=== PATIENT | female | born 1970 | race Hispanic/Latino ===

== ENCOUNTER 2019-05-09 16:28 | Emergency (ER) | payer SELFPAY ==
[2019-05-09] MEDS ORDERED: INSULIN -REGULAR HUMAN 50 UNIT/0.5 ML ML ONE (17:28)
[2019-05-09 17:29] LABS: Absolute Lymphocytes (CBC) 1.9 K/uL (0.7-4.9); Basophils % 0.8 % (0-1.3); Hematocrit 38.8 % (36.0-45.0); MPV 8.7 fL (7.6-11.3); RBC Red Blood Cell Count 4.34 M/uL (3.86-4.86)
[2019-05-09 17:55] LABS: Potassium 3.9 mmol/L (3.5-5.1)
[2019-05-09 17:56] LABS: Albumin 3.2 g/dL (3.4-5.0); Bilirubin Total 0.2 mg/dL (0.2-1.0); Protein, Total 6.6 g/dL (6.4-8.2)
--- NOTE | 2019-05-09 20:29 | EDPHYS ---
Physician Documentation [facility] Name: Ángela Mehta Age: 48 yrs Sex: Female : 1970 Arrival Date: 05/09/2019 Time: 16:30 Bed 24 Private MD: ED Physician Steve Cheek HPI: 05/09 17:55 This 48 yrs old Female presents to ER via Ambulatory with complaints of High ma2 Blood Sugar. 17:55 Onset: The symptoms/episode began/occurred gradually, 3 week(s) ago. Associated signs ma2 and symptoms: Pertinent negatives: constipation, diarrhea, nausea, polyphagia. The patient has experienced similar episodes in the past. not taking her metfromin . 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 - Coronavirus screen:: The patient has NOT traveled to [place], [place], or [place] in the past 14 days. The patient has NOT had contact with known/suspected case of Coronavirus?. - Social history:: Patient/guardian denies using alcohol, street drugs, The patient lives with spouse, Smoking status: Patient reports the use of cigarette tobacco products, 3 cigs a day, Patient uses street drugs, cocaine, marijuana. - Family history:: not pertinent. - Ebola Screening: : Patient negative for fever greater than or equal to 101.5 degrees Fahrenheit, and additional compatible Ebola Virus Disease symptoms Patient denies exposure to infectious person Patient denies travel to an Ebola-affected area in the 21 days before illness onset No symptoms or risks identified at this time. ROS: 17:55 Constitutional: Negative for fever, chills, and weight loss. ma2 17:55 All other systems are negative. Exam: 17:55 Constitutional: This is a well developed, well nourished patient who is awake, alert, ma2 and in no acute distress. Head/Face: Normocephalic, atraumatic. ENT: Nares patent. No nasal discharge, no septal abnormalities noted. Tympanic membranes are normal and external auditory canals are clear. Oropharynx with no redness, swelling, or masses, exudates, or evidence of obstruction, uvula midline. Mucous membranes moist. Neck: Trachea midline, no thyromegaly or masses palpated, and no cervical lymphadenopathy. Supple, full range of motion without nuchal rigidity, or vertebral point tenderness. No Meningismus. Chest/axilla: Normal chest wall appearance and motion. Nontender with no deformity. No lesions are appreciated. Cardiovascular: Regular rate and rhythm with a normal S1 and S2. No gallops, murmurs, or rubs. Normal PMI, no JVD. No pulse deficits. Respiratory: Lungs have equal breath sounds bilaterally, clear to auscultation and percussion. No rales, rhonchi or wheezes noted. No increased work of breathing, no retractions or nasal flaring. Abdomen/GI: Soft, non-tender, with normal bowel sounds. No distension or tympany. No guarding or rebound. No evidence of tenderness throughout. Neuro: Awake and alert, GCS 15, oriented to person, place, time, and situation. Cranial nerves II-XII grossly intact. Motor strength 5/5 in all extremities. Sensory grossly intact. Cerebellar exam normal. Normal gait. Vital Signs: 16:57 BP 111 / 72; Pulse 67; Resp 17 S; Temp 97.5(O); Pulse Ox 98% on R/A; Weight 69.85 kg ca1 (R); Height 5 ft. 4 in. (162.56 cm) (R); 18:26 BP 118 / 78; Pulse 64; Resp 18; Pulse Ox 98% on R/A; ph 19:28 BP 115 / 76; Pulse 62; Resp 18; Temp 98.0; Pulse Ox 99% on R/A; ph 16:57 Body Mass Index 26.43 (69.85 kg, 162.56 cm) ca1 MDM: 17:02 Patient medically screened. ma2 17:55 Differential diagnosis: diabetes insipidus, DKA, gestational diabetes, new onset ma2 diabetes. Data reviewed: vital signs, nurses notes. Counseling: I had a detailed discussion with the patient and/or guardian regarding: the historical points, exam findings, and any diagnostic results supporting the discharge/admit diagnosis, the presence of at least one elevated blood pressure reading (>120/80) during this emergency department visit, the need for outpatient follow up. Response to treatment: the patient's symptoms have markedly improved after treatment. 05/09 17:03 Order name: CBC with Diff ma2 05/09 17:03 Order name: HOMA altman Administered Medications: 17:30 Drug: Insulin Regular Human 8 units {Co-Signature: (Kayla Farfan).} Route: IVP; ph Site: right forearm; 19:27 Follow up: Response: No adverse reaction; Blood sugar is lowered ph Point of Care Testing: Blood Glucose: 16:57 Blood Glucose: High (>450 mg/dL); ca1 Ranges: Critical Glucose Levels:Adult <50 mg/dl or >400 mg/dl <40 mg/dl or >180 mg/dl Disposition: 05/09/19 18:44 Discharged to Home. Impression: Elevated blood glucose level. - Condition is Stable. - Discharge Instructions: Type 2 Diabetes Mellitus, Diagnosis, Adult, [id number], How to Avoid Diabetes Problems, Complementary and Alternative Medical Therapies for Diabetes, Diabetes Mellitus and Food. - Prescriptions for Tylenol- Codeine #3 300-30 mg Oral Tablet - take 2 tablet by ORAL route every 6 hours As needed; 30 tablet. Metformin 500 mg Oral Tablet - take 1 tablet by ORAL route once daily for 7 days Then take 1 tablet with morning meals AND evening meals; 21 tablet. - Work release form, Medication Reconciliation Form, Thank You Letter, Antibiotic Education, Prescription Opioid Use form. - Follow up: Private Physician; When: Tomorrow; Reason: Continuance of care. - Notes: drink alot of water Signatures: Dispatcher [employer] Harika Headley RN RN Steve Cheek MD MD ma2 Josselyn Tao RN RN [facility] Kayla Farfan Corrections: (The following items were deleted from the chart) 19:28 18:44 05/09/2019 18:44 Discharged to Home. Impression: Elevated blood glucose level. ph Condition is Stable. Discharge Instructions: Complementary and Alternative Medical Therapies for Diabetes, Diabetes Mellitus and Food. Prescriptions for Tylenol-Codeine #3 300-30 mg Oral Tablet - take 2 tablet by ORAL route every 6 hours As needed; 30 tablet, Metformin 500 mg Oral Tablet - take 1 tablet by ORAL route once daily for 7 days Then take 1 tablet with morning meals AND evening meals; 21 tablet. and Forms are Medication Reconciliation Form, Thank You Letter, Antibiotic Education, Prescription Opioid Use. Follow up: Private Physician; When: Tomorrow; Reason: Continuance of care. ma2
--- NOTE | 2019-05-09 20:29 | ER ---
Nurse's Notes [facility] Name: Ángela Mehta Age: 48 yrs Sex: Female : 1970 Arrival Date: 05/09/2019 Time: 16:30 Bed 24 Private MD: Diagnosis: Elevated blood glucose level Presentation: 05/09 16:54 Presenting complaint: Patient states: I am diabetic, I have been dizzy. I went to the [address] and they took my sugar, and it was at 585. They were to send me here via ambulance but I had my sis-in-law drive me here. I am not dizzy right now but I have been feeling sick for the past few days. Transition of care: patient was not received from another setting of care. Onset of symptoms was May 09, 2019. Risk Assessment: Do you want to hurt yourself or someone else? Patient reports no desire to harm self or others. Initial Sepsis Screen: Does the patient meet any 2 criteria? No. Patient's initial sepsis screen is negative. Does the patient have a suspected source of infection? No. Patient's initial sepsis screen is negative. Care prior to arrival: None. 16:54 Method Of Arrival: Ambulatory ca1 16:54 Acuity: NIMA 3 ca1 17:01 Note BGL: HI. 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 - Coronavirus screen:: The patient has NOT traveled to [place], [place], or [place] in the past 14 days. The patient has NOT had contact with known/suspected case of Coronavirus?. - Social history:: Patient/guardian denies using alcohol, street drugs, The patient lives with spouse, Smoking status: Patient reports the use of cigarette tobacco products, 3 cigs a day, Patient uses street drugs, cocaine, marijuana. - Family history:: not pertinent. - Ebola Screening: : Patient negative for fever greater than or equal to 101.5 degrees Fahrenheit, and additional compatible Ebola Virus Disease symptoms Patient denies exposure to infectious person Patient denies travel to an Ebola-affected area in the 21 days before illness onset No symptoms or risks identified at this time. Screenin:21 Abuse screen: Denies threats or abuse. Denies injuries from another. Nutritional ph screening: No deficits noted. Tuberculosis screening: No symptoms or risk factors identified. Fall Risk None identified. Assessment: 17:45 General: Appears in no apparent distress. comfortable, slender, well groomed, Behavior ph is calm, cooperative, appropriate for age, Denies fever, feeling ill. Pain: Denies pain. Neuro: Level of Consciousness is awake, alert, obeys commands, Oriented to person, place, time, situation, Reports dizziness. Cardiovascular: Capillary refill < 3 seconds in bilateral fingers Patient's skin is warm and dry. Respiratory: Airway is patent Respiratory effort is even, unlabored, Respiratory pattern is regular, symmetrical, Denies shortness of breath. GI: Abdomen is round non-distended, Patient currently denies abdominal pain, diarrhea, nausea, vomiting. : Reports urinary frequency. Derm: Skin is intact, Skin is pink, warm \T\ dry. Musculoskeletal: Circulation, motion, and sensation intact. Range of motion: intact in all extremities. 18:30 Reassessment: Patient appears in no apparent distress at this time. Patient and/or ph family updated on plan of care and expected duration. Pain level reassessed. Patient is alert, oriented x 3, equal unlabored respirations, skin warm/dry/pink. 19:27 Reassessment: Patient appears in no apparent distress at this time. Patient and/or ph family updated on plan of care and expected duration. Pain level reassessed. Patient is alert, oriented x 3, equal unlabored respirations, skin warm/dry/pink. Vital Signs: 16:57 BP 111 / 72; Pulse 67; Resp 17 S; Temp 97.5(O); Pulse Ox 98% on R/A; Weight 69.85 kg ca1 (R); Height 5 ft. 4 in. (162.56 cm) (R); 18:26 BP 118 / 78; Pulse 64; Resp 18; Pulse Ox 98% on R/A; ph 19:28 BP 115 / 76; Pulse 62; Resp 18; Temp 98.0; Pulse Ox 99% on R/A; ph 16:57 Body Mass Index 26.43 (69.85 kg, 162.56 cm) ca1 ED Course: 16:30 Patient arrived in ED. rg4 16:56 Triage completed. ca1 16:57 Arm band placed on right wrist. ca1 17:02 Steve Cheek MD is Attending Physician. ma2 17:03 Harika Hooper, RN is Primary Nurse. ph 17:30 Inserted saline lock: 22 gauge in right forearm, using aseptic technique. ph 18:21 Patient has correct armband on for positive identification. Pulse ox on. NIBP on. Door ph closed. Noise minimized. Warm blanket given. Pillow given. 18:33 No provider procedures requiring assistance completed. ph 19:27 IV discontinued, intact, bleeding controlled, No redness/swelling at site. Pressure ph dressing applied. Administered Medications: 17:30 Drug: Insulin Regular Human 8 units {Co-Signature: rafael (Kayla Farfan).} Route: IVP; ph Site: right forearm; 19:27 Follow up: Response: No adverse reaction; Blood sugar is lowered ph Point of Care Testing: Blood Glucose: 16:57 Blood Glucose: High (>450 mg/dL); ca1 Ranges: Outcome: 18:44 Discharge ordered by . ma2 19:27 Discharged to home ambulatory, with family. ph 19:27 Condition: improved 19:27 Discharge instructions given to patient, Instructed on discharge instructions, follow up and referral plans. medication usage, Demonstrated understanding of instructions, follow-up care, medications, Prescriptions given X 1. 19:28 Patient left the ED. ph Signatures: Harika Hooper RN RN ph Eli Jones rg4 Steve Cheek MD MD wa2 Josselyn Tao RN RN [facility] Kayla Farfan Corrections: (The following items were deleted from the chart) 18:26 17:30 General: Appears in no apparent distress. uncomfortable, Behavior is calm, ph cooperative, appropriate for age, ph 18:26 17:30 Pain: Denies pain. ph ph 18:26 17:30 Neuro: Level of Consciousness is awake, alert, obeys commands, Oriented to ph person, place, ph 18:26 17:30 Cardiovascular: Capillary refill < 3 seconds in bilateral fingers Patient's skin ph is warm and dry. ph 18:26 17:30 Respiratory: Airway is patent Respiratory effort is even, unlabored, Respiratory ph pattern is regular, symmetrical, ph 18:26 17:30 GI: PEG tube in place, clamped. Site clean. Reports nausea, vomiting, Patient ph currently denies abdominal pain, diarrhea, ph 18:26 17:30 Derm: Skin is intact, Skin is pink, warm \T\ dry. ph ph 18:26 17:30 Musculoskeletal: Circulation, motion, and sensation intact. Range of motion: ph limited in R side of body r/t previous CVA ph 18:26 18:20 Reassessment: Patient appears in no apparent distress at this time. Patient ph and/or family updated on plan of care and expected duration. Pain level reassessed. Patient is alert, oriented x 3, equal unlabored respirations, skin warm/dry/pink. Pt reports that nausea has improved after IV medications, awaiting lab and radiology results ph 18:33 17:50 Missed attempt(s): 22 gauge in left forearm. Bleeding controlled, band aid ph applied, catheter tip intact. ph 18:33 17:50 Missed attempt(s): 24 gauge in left hand. ph ph 18:33 18:05 Inserted saline lock: 18 gauge in left EJ, using aseptic technique. ,using ph aseptic technique. Per Dr De La Fuente Blood collected. ph 18:33 18:05 No provider procedures requiring assistance completed. ph ph 18:33 18:05 Patient admitted, IV remains in place. ph ph
[2019-05-11 19:25] VITALS: BP 115/76; TEMP 98; O2SAT 99
== END 2019-05-09 19:28 | disposition home or self-care (01) ==
LOC: ER 16:28
DX: E11.65 Type 2 diabetes mellitus with hyperglycemia (principal); Z72.0 Tobacco use
CPT/HCPCS: 36415; 80053; 82947; 85025; 96374; 99284

== ENCOUNTER 2020-06-08 14:25 | Emergency (ER) | payer SELFPAY ==
--- NOTE | 2020-06-08 18:25 | EDPHYS ---
Physician Documentation [facility] Name: Ángela Mehta Age: 49 yrs Sex: Female : 1970 Arrival Date: 06/08/2020 Time: 14:30 Bed 7 Private MD: ED Physician Dimas Diaz HPI: 06/08 18:15 This 49 yrs old Female presents to ER via Ambulatory with complaints of jmm Toothache, Mouth Swelling. 18:15 The patient presents with pain, swelling. Onset: The symptoms/episode began/occurred jmm gradually, 1 day(s) ago. Modifying factors: The symptoms are alleviated by nothing, the symptoms are aggravated by nothing. Associated signs and symptoms: Pertinent positives: pain, swelling, Pertinent negatives: fever. Historical: - Allergies: 15:08 No Known Allergies; aa5 - PMHx: 15:08 Diabetes - NIDDM; aa5 - PSHx: 15:08 ; aa5 - Immunization history:: Adult Immunizations unknown. - Social history:: Smoking status: Patient denies any tobacco usage or history of. ROS: 18:15 Constitutional: Negative for fever, chills, and weight loss. jmm 18:15 Neck: Negative for injury, pain, and swelling, Cardiovascular: Negative for chest pain, palpitations, and edema, Respiratory: Negative for shortness of breath, cough, wheezing, and pleuritic chest pain, Abdomen/GI: Negative for abdominal pain, nausea, vomiting, diarrhea, and constipation. 18:15 ENT: Positive for dental pain. 18:15 All other systems are negative. Exam: 18:15 Constitutional: This is a well developed, well nourished patient who is awake, alert, jmm and in no acute distress. Head/Face: atraumatic. Eyes: EOMI, no conjunctival erythema appreciated 18:15 Neck: Trachea midline, Supple Chest/axilla: Normal chest wall appearance and motion. Cardiovascular: Regular rate and rhythm. No edema appreciated Respiratory: Normal respirations, no respiratory distress appreciated Abdomen/GI: Non distended, soft Back: Normal ROM Skin: General appearance color normal MS/ Extremity: Moves all extremities, no obvious deformities appreciated, no edema noted to the lower extremities Neuro: Awake and alert, normal gait Psych: Behavior is normal, Mood is normal, Patient is cooperative and pleasant 18:15 ENT: Dental exam: pain, that is moderate, specifically in the lower left second molar (#18). 18:15 ENT: left sided jaw swelling appreciated, no submandibular pain. Vital Signs: 15:09 BP 119 / 80; Pulse 85; Resp 18 S; Temp 97.4(TE); Pulse Ox 98% on R/A; Weight 77.11 kg aa5 (R); Height 5 ft. 4 in. (162.56 cm) (R); Pain 10/10; 18:47 BP 127 / 89; Pulse 86; Resp 18; Temp 97.8; Pulse Ox 99% on R/A; ph 19:06 BP 121 / 80; Pulse 80; Resp 17; Pulse Ox 98% ; rr5 15:09 Body Mass Index 29.18 (77.11 kg, 162.56 cm) aa5 MDM: 18:04 Patient medically screened. [facility] 18:20 Data reviewed: vital signs, nurses notes. Counseling: I had a detailed discussion with antelmo the patient and/or guardian regarding: the historical points, exam findings, and any diagnostic results supporting the discharge/admit diagnosis, the need for outpatient follow up, to return to the emergency department if symptoms worsen or persist or if there are any questions or concerns that arise at home. ED course: Patient is alert and non toxic in appearance. I do not suspect ludwigs. Patient advised to follow up with oral surgery or dentist for reevaluation. Patient is otherwise given strict return precautions. Patient understood and agrees with the plan of care. . Administered Medications: 18:44 Drug: Ketorolac 30 mg Route: IM; Site: left deltoid; ph 19:05 Follow up: Response: No adverse reaction rr5 18:44 Drug: Clindamycin 900 mg Route: IM; Site: left vastus lateralis; ph 19:05 Follow up: Response: No adverse reaction rr5 Disposition: 06/09 18:25 Co-signature as Attending Physician, Dimas Diaz MD I agree with the assessment and tw4 plan of care. Disposition: 06/08/20 18:24 Discharged to Home. Impression: Dental Abscess. - Condition is Stable. - Discharge Instructions: Dental Abscess. - Prescriptions for Clindamycin HCl 300 mg Oral Capsule - take 1 capsule by ORAL route every 6 hours for 10 days; 40 capsule. Ibuprofen 800 mg Oral Tablet - take 1 tablet by ORAL route every 8 hours As needed take with food; 30 tablet. - Medication Reconciliation Form, Thank You Letter, Antibiotic Education, Prescription Opioid Use form. - Follow up: Andrew Cantor DDS; When: 2 - 3 days; Reason: Recheck today's complaints, Continuance of care, Re-evaluation by your physician. Signatures: Ed Arzola PA PA jmm Calderon, Audri RN RN aa5 Harika Hooper RN RN Dimas Diaz MD MD tw4 Sánchez Zuluaga RN RN rr5 Corrections: (The following items were deleted from the chart) 06/08 19:07 18:24 06/08/2020 18:24 Discharged to Home. Impression: Dental Abscess. Condition is rr5 Stable. Forms are Medication Reconciliation Form, Thank You Letter, Antibiotic Education, Prescription Opioid Use. Follow up: Andrew Cantor; When: 2 - 3 days; Reason: Recheck today's complaints, Continuance of care, Re-evaluation by your physician. antelmo
--- NOTE | 2020-06-08 18:25 | ER ---
Nurse's Notes [facility] Name: Ángela Mehta Age: 49 yrs Sex: Female : 1970 Arrival Date: 06/08/2020 Time: 14:30 Bed 7 Private MD: Diagnosis: Dental Abscess Presentation: 06/08 15:09 Chief complaint: Patient states: toothache and left jaw swelling that began yesterday. aa5 Coronavirus screen: At this time, the client does not indicate any symptoms associated with coronavirus-19. Ebola Screen: Patient negative for fever greater than or equal to 101.5 degrees Fahrenheit, and additional compatible Ebola Virus Disease symptoms. Initial Sepsis Screen: Does the patient meet any 2 criteria? No. Patient's initial sepsis screen is negative. Does the patient have a suspected source of infection? No. Patient's initial sepsis screen is negative. Risk Assessment: Do you want to hurt yourself or someone else? Patient reports no desire to harm self or others. Onset of symptoms was May 2020. 15:09 Method Of Arrival: Ambulatory aa5 15:09 Acuity: NIMA 4 aa5 Historical: - Allergies: 15:08 No Known Allergies; aa5 - PMHx: 15:08 Diabetes - NIDDM; aa5 - PSHx: 15:08 ; aa5 - Immunization history:: Adult Immunizations unknown. - Social history:: Smoking status: Patient denies any tobacco usage or history of. Screenin:46 Abuse screen: Denies threats or abuse. Denies injuries from another. Nutritional ph screening: No deficits noted. Tuberculosis screening: No symptoms or risk factors identified. Fall Risk None identified. Assessment: 18:44 Reassessment: D/C pending 15 min shot time. General: Appears in no apparent distress. ph uncomfortable, well groomed, Behavior is calm, cooperative, appropriate for age. Pain: Complains of pain in left jaw. Neuro: Level of Consciousness is awake, alert, obeys commands, Oriented to person, place, time, situation. Cardiovascular: Capillary refill < 3 seconds in bilateral fingers Patient's skin is warm and dry. Respiratory: Airway is patent Respiratory effort is even, unlabored. EENT: Poor dentition noted. swelling noted to L jaw. Reports pain in lower left second molar (#18). Derm: Skin is intact, Skin is pink, warm \T\ dry. Musculoskeletal: Circulation, motion, and sensation intact. Range of motion: intact in all extremities. 19:06 Reassessment: Patient appears in no apparent distress at this time. Patient is alert, rr5 oriented x 3, equal unlabored respirations, skin warm/dry/pink. discharge instruction given and explained without complaints made. Vital Signs: 15:09 BP 119 / 80; Pulse 85; Resp 18 S; Temp 97.4(TE); Pulse Ox 98% on R/A; Weight 77.11 kg aa5 (R); Height 5 ft. 4 in. (162.56 cm) (R); Pain 10/10; 18:47 BP 127 / 89; Pulse 86; Resp 18; Temp 97.8; Pulse Ox 99% on R/A; ph 19:06 BP 121 / 80; Pulse 80; Resp 17; Pulse Ox 98% ; rr5 15:09 Body Mass Index 29.18 (77.11 kg, 162.56 cm) aa5 ED Course: 14:30 Patient arrived in ED. mr 15:08 Arm band placed on. aa5 15:10 Triage completed. aa5 17:55 Ed Arzola PA is PHCP. jmm 17:55 Dimas Diaz MD is Attending Physician. jmm 18:14 Harika Hooper, RN is Primary Nurse. ph 18:23 Andrew Cantor DDS is Referral Physician. jmm 18:46 Patient has correct armband on for positive identification. Bed in low position. Call ph light in reach. Door closed. Noise minimized. 18:46 No provider procedures requiring assistance completed. Patient did not have IV access ph during this emergency room visit. Administered Medications: 18:44 Drug: Ketorolac 30 mg Route: IM; Site: left deltoid; ph 19:05 Follow up: Response: No adverse reaction rr5 18:44 Drug: Clindamycin 900 mg Route: IM; Site: left vastus lateralis; ph 19:05 Follow up: Response: No adverse reaction rr5 Outcome: 18:24 Discharge ordered by . jmm 19:06 Discharged to home ambulatory. rr5 19:06 Condition: stable 19:06 Discharge instructions given to patient, Instructed on discharge instructions, follow up and referral plans. medication usage, Demonstrated understanding of instructions, follow-up care, medications, Prescriptions given X 2. 19:07 Patient left the ED. rr5 Signatures: Ed Arzola PA PA jmm Rivera, Mary mr AnicetoMelyssa, RN RN aa5 Harika Hooper RN RN Sánchez Zuluaga RN RN rr5 Corrections: (The following items were deleted from the chart) 18:46 18:44 EENT: Poor dentition noted. Reports pain in lower left second molar (#18) [facility]
[2020-06-08] MEDS ORDERED: KETOROLAC 30 MG/ML INJ ONE (18:43)
[2020-06-08] MEDS ORDERED: CLINDAMYCIN IV 150 MG/ML (4 mL) VIAL ONE (18:43)
[2020-06-08 19:13] VITALS: TEMP 97.8
[2020-06-08 19:14] VITALS: BP 121/80; O2SAT 98
== END 2020-06-08 19:07 | disposition home or self-care (01) ==
LOC: ER 14:25
DX: K04.7 Periapical abscess without sinus (principal); E11.9 Type 2 diabetes mellitus without complications
CPT/HCPCS: 96372; 99283; S0077

== ENCOUNTER 2022-10-04 14:26 | Emergency (ER) | payer OTHER, SELFPAY ==
--- OUTSIDE RECORDS SUMMARY | 2022-10-04 14:33 | XMS REPORT | Continuity of Care Document ---
:1970 Author Organization [facility] t Address [address] [facility] [address] [place] [address] Care Team Providers Name Role Phone TommyRobertChichi Primary Care Physician Doctor Unassigned, [place] Attending Clinician Unavailable Mikey Thomas RN Attending Clinician Unavailable HENRY DAWSON Attending Clinician Unavailable Mauro Turcios MD Attending Clinician Nitin Guerra MD Attending Clinician Juan Dawson MD Attending Clinician Henry Dawson MD Attending Clinician JUAN DAWSON Admitting Clinician Unavailable Juan Dawson MD Admitting Clinician Payers Payer Name Policy Type Policy Number Effective Date Expiration Date S ource Problems Condition Condition Condition Status Onset Resolution Last Treating Co mments Source Name Details Category Date Date Treatment Clinician Date Fever of Fever of Disease Active 2020-03 Unive rs unknown unknown 0-20 ity of origin origin 00:00: [address] Allergies, Adverse Reactions, Alerts Allergy Allergy Status Severity Reaction(s) Onset Inactive Treating Comm ents Source Name Type Date Date Clinician [place] - Prop[facility] Active Intraven ty to 711 ous adverse 00:00: reaction 00 to drug n Propensi Active ty to 7 adverse 00:00: reaction 00 to drug NO KNOWN Drug Active Univers ALLERGIE Class ity of [facility] Social History Social Habit Start Date Stop Date Quantity Comments Source Exposure to Not sure [facility]-CoV-2 [facility] [place] [facility] (event) Branch Tobacco use and 2021-01-16 2021-01-16 Never used Universit y of exposure 00:00:00 00:00:00 [facility] Tobacco Comment 2021-01-16 2021-01-16 daily vaping now Uni versity of 00:00:00 00:00:00 [facility] Sex Ass[birth year] At [birth year] Universit y of 00:00:00 00:00:00 [facility] Smoking Status Start Date Stop Date Source Unknown if ever smoked [facility] Former smoker 2021-01-16 00:00:00 2021-01-16 00:00:00 [facility] ty [facility] Medications Ordered Filled Start Stop Current Ordering Indication Dosage Frequency Signature Comments Components Source Medication Medication Date Date Medication? Clinician (SIG) Name Name Dose No Unknown 11-17 00:00: 00 INJECT 50 2021-0 No 100 UNITS UNDER 8-18 SKIN TWICE 00:00: DAILY 00 INJECT 50 2021-0 No UNITS UNDER 8-18 SKIN TWICE 00:00: DAILY 00 TAKE 1 2021-0 No 4 TABLET 7-20 TWICE 00:00: DAILY. 00 TAKE 1 2021-0 No 100 CAPSULE 3 7-20 TIMES 00:00: DAILY. 00 TAKE 1 2021-0 No 4 TABLET 7-20 TWICE 00:00: DAILY. 00 TAKE 1 2021-0 No 100 CAPSULE 3 7-20 TIMES 00:00: DAILY. 00 TAKE 1 2021-0 No 4 TABLET 7-20 TWICE 00:00: DAILY. 00 TAKE 1 2021-0 No 100 CAPSULE 3 7-20 TIMES 00:00: DAILY. 00 glimepiride 2021-0 No 1mg 4 mg tablet 09-17 00:00: 00 Dose 2021-0 No Unknown 6- 00:00: 00 glimepiride 2021-0 No 1mg 4 mg tablet - 00:00: 00 Levemir 2-0 No (3 mL) FlexTouch 5-17 U-100 00:00: Insulin 100 00 unit/mL (3 mL) subcutaneou s pen glimepiride 2021-0 No 1mg 4 mg tablet 5-17 00:00: 00 Levemir 2022-0 No (3 mL) FlexTouch 5-17 U-100 00:00: Insulin 100 00 unit/mL (3 mL) subcutaneou s pen glimepiride 2021-0 No 1mg 4 mg tablet 5-17 00:00: 00 Levemir 2-0 No (3 mL) FlexTouch 5-17 U-100 00:00: Insulin 100 00 unit/mL (3 mL) subcutaneou s pen glimepiride 2021-0 No 1mg 4 mg tablet 5-17 00:00: 00 Dose 2-0 No Unknown 4-26 00:00: 00 Dose 2-0 No Unknown 4-26 00:00: 00 Dose 2-0 No Unknown 4-26 00:00: 00 Dose 2-0 No Unknown 4-26 00:00: 00 Dose 2-0 No Unknown 4-26 00:00: 00 Dose 2-0 No Unknown 4-26 00:00: 00 Dose 2-0 No Unknown 4-26 00:00: 00 Dose 2-0 No Unknown 4-26 00:00: 00 Dose 2-0 No Unknown 4-26 00:00: 00 Dose 2-0 No Unknown 4-26 00:00: 00 Dose 2-0 No Unknown 4-26 00:00: 00 Dose 2-0 No Unknown 4-26 00:00: 00 Dose 2-0 No Unknown 4-26 00:00: 00 Dose 2-0 No Unknown 4-26 00:00: 00 Dose 2-0 No Unknown 4-26 00:00: 00 Dose 2-0 No Unknown 4-26 00:00: 00 Dose 2-0 No Unknown 4-26 00:00: 00 Dose 2-0 No Unknown 4-26 00:00: 00 Dose 2-0 No Unknown 4-26 00:00: 00 Dose 2-0 No Unknown 4-26 00:00: 00 Dose 2-0 No Unknown 4-26 00:00: 00 fluconazole 2-0 No 1mg 150 mg 4-25 tablet 00:00: 00 fluconazole 2022-0 No 1mg 150 mg 4-25 tablet 00:00: 00 fluconazole 2-0 No 1mg 150 mg 4-25 tablet 00:00: 00 Levemir 2-0 No (3 mL) FlexTouch 4-12 U-100 00:00: Insulin 100 00 unit/mL (3 mL) subcutaneou s pen glimepiride 2-0 No 1mg 4 mg tablet 4-12 00:00: 00 atorvastati 2022-0 No 1mg n 40 mg 4-12 tablet 00:00: 00 Levemir 2022-0 No (3 mL) FlexTouch 4-12 U-100 00:00: Insulin 100 00 unit/mL (3 mL) subcutaneou s pen glimepiride 2-0 No 1mg 4 mg tablet 4-12 00:00: 00 atorvastati 2022-0 No 1mg n 40 mg 4-12 tablet 00:00: 00 Levemir 2-0 No (3 mL) FlexTouch 4-12 U-100 00:00: Insulin 100 00 unit/mL (3 mL) subcutaneou s pen glimepiride 2-0 No 1mg 4 mg tablet 4-12 00:00: 00 atorvastati 2-0 No 1mg n 40 mg 4-12 tablet 00:00: 00 Dose 2022-0 No Unknown 4-07 00:00: 00 Dose 2022-0 No Unknown 4-07 00:00: 00 Dose 2022-0 No Unknown 4-07 00:00: 00 Dose 2022-0 No Unknown 4-07 00:00: 00 Dose 2022-0 No Unknown 4-07 00:00: 00 Dose 2022-0 No Unknown 4-07 00:00: 00 Dose 2022-0 No Unknown 4-07 00:00: 00 Dose 2022-0 No Unknown 4-07 00:00: 00 Dose 2022-0 No Unknown 4-07 00:00: 00 Dose 2022-0 No Unknown 4-07 00:00: 00 Dose 2022-0 No Unknown 4-07 00:00: 00 Dose 2022-0 No Unknown 4-07 00:00: 00 azithromyci 2022-0 No mg n 250 mg 1-05 tablet 00:00: 00 Bromfed DM 2-0 No 10mg/5 2 mg-30 1-05 mL mg-10 mg/5 00:00: mL oral 00 syrup azithromyci 2022-0 No mg n 250 mg 1-05 tablet 00:00: 00 Bromfed DM 0 No 10mg/5 2 mg-30 1-05 mL mg-10 mg/5 00:00: mL oral 00 syrup azithromyci 0 No mg n 250 mg 1-05 tablet 00:00: 00 Bromfed DM 0 No 10mg/5 2 mg-30 1-05 mL mg-10 mg/5 00:00: mL oral 00 syrup glimepiride 0 No 1mg 4 mg tablet 1- 00:00: 00 glimepiride 0 No 1mg 4 mg tablet 1 00:00: 00 Dose 0 No Unknown 1 00:00: 00 Levemir 2020-03 No (3 mL) FlexTouch 0-27 U-100 00:00: Insulin 100 00 unit/mL (3 mL) subcutaneou s pen glimepiride 2020-03 No 1mg 4 mg tablet 0-27 00:00: 00 Dose 2020-03 No Unknown 0-27 00:00: 00 Levemir 2020-03 No (3 mL) FlexTouch 0-27 U-100 00:00: Insulin 100 00 unit/mL (3 mL) subcutaneou s pen glimepiride 2020-03 No 1mg 4 mg tablet 0-27 00:00: 00 Dose 2020-03 No Unknown 0-27 00:00: 00 Levemir 2020-03 No (3 mL) FlexTouch 0-27 U-100 00:00: Insulin 100 00 unit/mL (3 mL) subcutaneou s pen Dose 2020-03 No Unknown 0-27 00:00: 00 Dose 2020-03 No Unknown 0-27 00:00: 00 Sliding 2020-03 Yes Subcutaneo Univ ers Scale 0-25 us, TID ity of Insulin - 17:00: MEALS+HS, Shivam as Lispro 00 First dose Medical (HumaLOG) + on Thu Fsbg 01/21/21 Testing at 1200, Until Discontinu ed, Routine insulin 2020-03 Yes 36U 36 Units, Unive rs detemir 0-25 Subcutaneo ity of U-100 13:45: us, BIDAC, [place] (LEVEMIR 00 First dose Medic al U-100 on Mon Branch INSULIN) 01/21/21 injection at 0845, 36 Units Until Discontinu ed, Routine
Restri cted - To be dispensed only to: Continuati on from home Insulin 2020-03- No 34U inject 34 Univ ers Detemir 0-25 10-25 Units ity of (LEVEMIR 11:52: 00:00 under the Shivam as FLEXTOUCH 02 :00 skin 2 Medical U-100 (two) Branch INSULN) 100 times unit/mL (3 daily. mL) injection metFORMIN 2020-03- No 500mg Take 500 Un cristal 500 mg 24 0-25 10-25 mg by ity of hr tablet 10:40: 00:00 mouth [place] 55 :00 daily. Medical Branch atorvastati 2020-03- No 40mg Take 40 mg Univers n 40 mg 0-25 10-25 by mouth ity of tablet 10:40: 00:00 at [place] 55 :00 bedtime. Medical Branch insulin NPH 2020-03- No 20U 20 Units, Univers (HUMULIN N) 0-25 10-25 Subcutaneo i ty of injection 02:00: 13:35 us, [place] 20 Units 00 :19 QAM+HS, Medical First dose Branch (after last modificati on) on 01/20/21 at 2100, Until Discontinu ed, Routine metformin 2020-03 Yes [id number] 500mg Take 1 Univers ER 500 mg 0-25 tablet by ity o f 24 hr 00:00: mouth 2 [place] tablet 00 (two) Medical times Branch daily with meals. atorvastati 2020-03 Yes [id number] 40mg Take 1 Univers n 40 mg 0-25 tablet by ity of tablet 00:00: mouth at [place] 00 bedtime. Medical Branch Insulin 2020-03 Yes 36U inject 36 Unive rs Detemir 0-25 Units ity of (LEVEMIR 00:00: [place] FLEXTOUCH 00 skin 2 Medical U-100 (two) Branch INSULN) 100 times unit/mL (3 daily. mL) injection metformin 2020-03 Yes [id number] 500mg Take 1 Univers ER 500 mg 0-25 tablet by ity o f 24 hr 00:00: mouth 2 [place] tablet 00 (two) Medical times Branch daily with meals. atorvastati 2020-03 Yes [id number] 40mg Take 1 Univers n 40 mg 0-25 tablet by ity of tablet 00:00: mouth at [place] 00 bedtime. Medical Branch Insulin 2020-03 Yes 36U inject 36 Unive rs Detemir 0-25 Units ity of (LEVEMIR 00:00: [place] FLEXTOUCH 00 skin 2 Medical U-100 (two) Branch INSULN) 100 times unit/mL (3 daily. mL) injection metformin 2020-03 Yes [id number] 500mg Take 1 Univers ER 500 mg 0-25 tablet by ity o f 24 hr 00:00: mouth 2 [place] tablet 00 (two) Medical times Branch daily with meals. atorvastati 2020-03 Yes [id number] 40mg Take 1 Univers n 40 mg 0-25 tablet by ity of tablet 00:00: mouth at [place] 00 bedtime. Medical Branch Insulin 2020-03 Yes 36U inject 36 Unive rs Detemir 0-25 Units ity of (LEVEMIR 00:00: [place] FLEXTOUCH 00 skin 2 Medical U-100 (two) Branch INSULN) 100 times unit/mL (3 daily. mL) injection doxycycline 2020-03- No [id number] 100mg Take 1 Univers hyclate 100 0-25 11-01 capsule by i ty of mg capsule 00:00: 04:59 mouth [place] 00 :00 every 12 Medical (twelve) Branch hours for 12 doses. doxycycline 2020-03- No [id number] 100mg Take 1 Univers hyclate 100 0-25 11-01 capsule by i ty of mg capsule 00:00: 04:59 mouth [place] 00 :00 every 12 Medical (twelve) Branch hours for 12 doses. polyethylen 2020-03 Yes 17g 17 g, Unive rs e glycol 0-24 Oral, ity of 3350 powder 14:00: DAILY, [place] 17 g 00 First dose Medical on Sun Branch 01/20/21 at 0900, Until Discontinu ed, Routine insulin 2020-03- No 15U 15 Units, Univ ers regular 0-24 10-25 Subcutaneo ity o f human 13:00: 13:35 us, BID [place] (HUMULIN R) 00 :21 MEALS, Medica l injection First dose Bran ch 15 Units on 01/20/21 at 0800, Until Discontinu ed, Routine Sliding 2020-03- Subcutaneo Uni vers Scale 0-24 10-25 us, AC+HS, ity of Insulin-Reg 02:00: 14:08 First dose [place] ular + Fsbg 00 :02 on Sat Medica l Testing 01/19/21 Branch at 2100, Until Discontinu ed, Routine insulin NPH 2020-03- No 17U 17 Units, Univers (HUMULIN N) 0-24 10-24 Subcutaneo i ty of injection 02:00: 19:37 us, [place] 17 Units 00 :31 QAM+HS, Medical First dose Branch on 01/19/21 at 2100, Until Discontinu ed, Routine artificial 2020-03 Yes 1[drp] 1 Drop, Un cristal tears(hypro 0-24 Right Eye, it y of mellose) 01:00: QID, First Shivam as (ISOPTO-TEA 00 dose on Medic al RS) 0.5 % Sat Branch ophthalmic 01/19/21 drops 1 at 2000, Drop Until Discontinu ed, Routine gadoteridol 2020-03- No [id number] .2mL/kg 14.2 mL Univers (PROHANCE-1 0-23 10-23 (0.2 mL/kg i ty of 5 mL) 21:30: 21:30 ?71 kg), [place] injection 00 :00 Intravenou Medi rodrigo 14.2 mL s, ONCE, 1 Branch dose, On 01/19/21 at 1630, Routine pantoprazol 2020-03 Yes 40mg 40 mg, Univ ers e 0-23 Oral, ity of (PROTONIX) 14:00: DAILY, [place] EC tablet 00 First dose Medi rodrigo 40 mg on Sat Branch 01/19/21 at 0900, Until Discontinu ed, Routine heparin 2020-03 Yes 5000U 5,000 Univers (porcine) 0-23 Units, ity of injection 13:00: Subcutaneo [place] 5,000 Units 00 us, Q12H, Med ical First dose Branch on 01/19/21 at 0800, Until Discontinu ed, Routine Sliding 2020-03 No Subcutaneo Uni vers Scale 0-23 10-23 us, TID ity of Insulin - 13:00: 23:18 MEALS+HS, [place] Lispro 00 :46 First dose Medical (HumaLOG) + (after Branch Fsbg last Testing modificati on) on 01/19/21 at 0800, Until Discontinu ed, Routine insulin 2020-03 No 10U 10 Units, Univ ers lispro 0-23 23 Subcutaneo ity of (human) 13:00: 23:18 us, TID [place] (HumaLOG 00 :46 MEALS, Medical U-100) First dose Branch injection (after 10 Units last modificati on) on 01/19/21 at 0800, Until Discontinu ed, Routine rifAMPin 2020-03- No 300mg 300 mg, Univ ers (RIFADIN) 0-23 10-24 Oral, ity of capsule 300 01:00: 19:36 Q12H, [place] mg 00 :15 First dose Medical on Thu Branch 01/18/21 at 2000, Until Discontinu ed, ASHER
Re ason for Anti-Infec tive: Empiric Therapy for Suspected Infection< br>Empiric Therapy Site: Blood<br&g t;Duration of therapy: 7 days insulin 2020-03- No 4U 4 Units, Unive rs lispro 0-01-19 Subcutaneo ity of (human) 17:00: 06:32 us, TID [place] (HumaLOG 00 :19 MEALS, Medical U-100) First dose Branch injection 4 on Fri Units 01/18/21 at 1200, Until Discontinu ed, Routine iopamidol 2020-03- No [id number] 100mL 100 mL, Univers (ISOVUE 0-17 01- Intravenou ity o f 370-500 mL) 22:15: 21:08 s, ONCE, 1 [place] injection 00 :00 dose, On Medica l 100 mL Thu Branch 01/17/21 at 1715, Routine doxycycline 2020-03 Yes 100mg 100 mg, Un cristal hyclate 0-21 Oral, ity of (Vibramycin 17:45: Q12HA2, Shivam as ) capsule 00 First dose Medi rodrigo 100 mg on [place] Branch 01/17/21 at 1245, Until Discontinu ed, ASHER
Re ason for Anti-Infec tive: Empiric Therapy for Suspected Infection< br>Empiric Therapy Site: Skin / Soft tissue
Duration of therapy: 7 days sulfur 2020-03- No [id number] 5mL 5 mL, Univ ers hexafluorid 01-17 Intravenou i ty of e microsphr 15:45: 15:25 s, ONCE, 1 [place] (LUMASON) 00 :00 dose, On Medica l injection 5 [place] Branch mL 01/17/21 at 1045, Routine
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
Rest ricted - To be dispensed only to: Continuati on from home Sliding 2020-03- No Subcutaneo Uni vers Scale 0-01-19 us, TID ity of Insulin - 13:00: 06:32 MEALS+HS, [place] Lispro 00 :19 First dose Medical (HumaLOG) + on [place] Branch Fsbg 01/17/21 Testing at 0800, Until Discontinu ed, Routine NaCl 0.9% 2020-03- No 1000mL at 100 Uni vers (NS) IV 0- 10-21 mL/hr, IV ity of infusion 04:45: 04:48 Infusion, Shivam as 1,000 mL 00 :00 ONCE, 1 Medical dose, On Branch 01/16/21 at 2345, Routine atorvastati 2020-03 Yes 40mg 40 mg, Univ ers n (LIPITOR) 0-21 Oral, QHS, it y of tablet 40 04:00: First dose [place] mg 00 on Thu Medical 01/16/21 Branch at 2300, Until Discontinu ed, Routine glucagon 2020-03 Yes 1mg 1 mg, Univers (GLUCAGEN 0-21 Intramuscu ity of DIAGNOSTIC 02:42: lar, PRN, [place] KIT) 04 Starting Medical injection 1 on Thu Branch mg 01/16/21 at 2142, Until Discontinu ed, ASHER, Blood Glucose < or = 70 mg/dL and patient is unable to swallow or has mental changes. dextrose 50 2020-03 Yes 25mL 25 mL, Univ ers % in water 0- Slow IV ity of (D50W) 02:42: Push, PRN, [place] injection 04 Starting Medica l 25 mL on Thu Branch 01/16/21 at 2142, Until Discontinu ed, ASHER, Blood Glucose < or = 70 mg/dL and patient is unable to swallow or has mental status changes. ondansetron 2020-03 Yes 4mg 4 mg, Slow Univers (ZOFRAN 0- IV Push, ity of (PF)) 02:41: [facility], [place] injection 4 59 Starting Medi rodrigo mg on Thu Branch 01/16/21 at 2141, Until Discontinu ed, Routine, Nausea and Vomiting (N/V) acetaminoph 2020-03- No 1{tbl} 1 tablet, Univers en-codeine 0-01-19 Oral, ity of (TYLENOL 02:41: 02:40 [facility], [place] #3) 300-30 54 :54 Starting Medic al mg tablet 1 on Thu Branch tablet 01/16/21 at 2141, Until 01/18/21 at 2140, Routine, Pain (scale 4-6) acetaminoph 2020-03 Yes 650mg 650 mg, Un cristal en 0- Oral, ity of (TYLENOL) 02:41: Q6[place]PFill[place], [place] tablet 650 53 Starting Medic al mg on Thu Branch 01/16/21 at 2141, Until Discontinu ed, Routine, Pain (scale 1-3) ibuprofen 2020-03- No 800mg 800 mg, Uni vers (IBU) 0-01-17 Oral, ity of tablet 800 02:15: 01:12 ONCE, 1 Shivam as mg 00 :00 dose, On Medical Wed Branch 01/16/21 at 2115, ASHER iopamidol 2020-03- No [id number] 120mL 120 mL, Univers (ISOVUE 0-16 01-20 Intravenou ity o f 370-500 mL) 22:30: 21:16 s, ONCE, 1 [place] injection 00 :00 dose, On Medica l 120 mL Wed Branch 01/16/21 at 1730, Routine piperacilli 2020-03- No 3.375g 3.375 g, Univers n-tazobacta 0-16 01- IV ity of m (ZOSYN) 21:45: 23:42 Piggyback, [place] 3.375 g in 00 :00 ONCE, 1 Medica l NaCl 0.9% dose, On Branch (NS) 100 mL Wed MINI-BAG 01/16/21 at 1645, Administer over 30 Minutes, 100 mL
Reas on for Anti-Infec tive: Empiric Therapy for Suspected Infection< br>Empiric Therapy Site: Abdominal< br>Duratio n of therapy: 72 hours NaCl 0.9% 2020-03- No 1000mL at 999 Uni vers (NS) bolus 0-20 10-20 mL/hr, ity of infusion 21:45: 23:42 1,000 mL, Shivam as 1,000 mL 00 :00 IV Medical Infusion, Branch ONCE, 1 dose, On 01/16/21 at 1645, STAT acetaminoph 2020-03- No 650mg 650 mg, U nivers en 0-16 01- Oral, ity of (TYLENOL) 20:15: 19:28 ONCE, 1 [place] tablet 650 00 :00 dose, On Medic al mg Wed Branch 01/16/21 at 1515, ASHER metformin 2019-03 No 2mg ER 500 mg 2-22 tablet,exte 00:00: nded 00 release 24 hr meclizine 2019-03 No 1mg 25 mg 2-22 tablet 00:00: 00 metformin 2019-03 No 2mg ER 500 mg 2-22 tablet,exte 00:00: nded 00 release 24 hr meclizine 2020-1 No 1mg 25 mg 2-22 tablet 00:00: 00 metformin 2020-1 No 2mg ER 500 mg 2-22 tablet,exte 00:00: nded 00 release 24 hr meclizine 2020-1 No 1mg 25 mg 2-22 tablet 00:00: 00 Levemir 2020-1 No 20(3 FlexTouch 1-17 mL) U-100 00:00: Insulin 100 00 unit/mL (3 mL) subcutaneou s pen metformin 2019-1 No 2mg ER 500 mg 1-17 tablet,exte 00:00: nded 00 release 24 hr atorvastati 2020-1 No 1mg n 40 mg 1-17 tablet 00:00: 00 Levemir 2020-1 No 20(3 FlexTouch 1-17 mL) U-100 00:00: Insulin 100 00 unit/mL (3 mL) subcutaneou s pen metformin 2019-1 No 2mg ER 500 mg 1-17 tablet,exte 00:00: nded 00 release 24 hr atorvastati 2019-1 No 1mg n 40 mg 1-17 tablet 00:00: 00 Levemir 2020-1 No 20(3 FlexTouch 1-17 mL) U-100 00:00: Insulin 100 00 unit/mL (3 mL) subcutaneou s pen metformin 2019-1 No 2mg ER 500 mg 1-17 tablet,exte 00:00: nded 00 release 24 hr atorvastati 2020-1 No 1mg n 40 mg 1-17 tablet 00:00: 00 Levemir 2020-0 No 12(3 FlexTouch 8-14 mL) U-100 00:00: Insulin 100 00 unit/mL (3 mL) subcutaneou s pen Levemir 2020-0 No 15(3 FlexTouch 8-14 mL) U-100 00:00: Insulin 100 00 unit/mL (3 mL) subcutaneou s pen metformin 2020-0 No 1mg 1,000 mg 8-14 tablet 00:00: 00 metformin 2020-0 No 1mg 1,000 mg 8-14 tablet 00:00: 00 atorvastati 2020-0 No 1mg n 40 mg 8-14 tablet 00:00: 00 omeprazole 2020-0 No 1mg 20 mg 8-14 capsule,del 00:00: ayed 00 release Levemir 2020-0 No 12(3 FlexTouch 8-14 mL) U-100 00:00: Insulin 100 00 unit/mL (3 mL) subcutaneou s pen Levemir 2020-0 No 15(3 FlexTouch 8-14 mL) U-100 00:00: Insulin 100 00 unit/mL (3 mL) subcutaneou s pen metformin 2020-0 No 1mg 1,000 mg 8-14 tablet 00:00: 00 metformin 2020-0 No 1mg 1,000 mg 8-14 tablet 00:00: 00 atorvastati 2020-0 No 1mg n 40 mg 8-14 tablet 00:00: 00 omeprazole 2020-0 No 1mg 20 mg 8-14 capsule,del 00:00: ayed 00 release Levemir 2020-0 No 12(3 FlexTouch 8-14 mL) U-100 00:00: Insulin 100 00 unit/mL (3 mL) subcutaneou s pen Levemir 2020-0 No 15(3 FlexTouch 8-14 mL) U-100 00:00: Insulin 100 00 unit/mL (3 mL) subcutaneou s pen metformin 2020-0 No 1mg 1,000 mg 8-14 tablet 00:00: 00 metformin 2020-0 No 1mg 1,000 mg 8-14 tablet 00:00: 00 atorvastati 2020-0 No 1mg n 40 mg 8-14 tablet 00:00: 00 omeprazole 2020-0 No 1mg 20 mg 8-14 capsule,del 00:00: ayed 00 release amoxicillin 2020-0 No 1mg 500 mg 4-21 capsule 00:00: 00 amoxicillin 2020-0 No 1mg 500 mg 4-21 capsule 00:00: 00 amoxicillin 2020-0 No 1mg 500 mg 4-21 capsule 00:00: 00 Keflex 500 2020-0 No 1mg mg capsule 4-13 00:00: 00 Keflex 500 2020-0 No 1mg mg capsule 4-13 00:00: 00 Keflex 500 2020-0 No 1mg mg capsule 4-13 00:00: 00 metronidazo 2020-0 No 1mg le 500 mg 3-01 tablet 00:00: 00 metronidazo 2020-0 No 1mg le 500 mg 3-01 tablet 00:00: 00 metronidazo 2020-0 No 1mg le 500 mg 3-01 tablet 00:00: 00 atorvastati 2020-0 No 1mg n 40 mg 2-26 tablet 00:00: 00 atorvastati 2020-0 No 1mg n 40 mg 2-26 tablet 00:00: 00 atorvastati 2020-0 No 1mg n 40 mg 2-26 tablet 00:00: 00 Levemir 2020-0 No 10(3 FlexTouch 2-18 mL) U-100 00:00: Insulin 100 00 unit/mL (3 mL) subcutaneou s pen Levemir 2020-0 No 10(3 FlexTouch 2-18 mL) U-100 00:00: Insulin 100 00 unit/mL (3 mL) subcutaneou s pen Levemir 2020-0 No 10(3 FlexTouch 2-18 mL) U-100 00:00: Insulin 100 00 unit/mL (3 mL) subcutaneou s pen omeprazole 2020-0 No 1mg 20 mg 2-11 capsule,del 00:00: ayed 00 release prednisone 2020-0 No mg 10 mg 2-11 tablet 00:00: 00 metformin 2020-0 No 1mg 1,000 mg 2-11 tablet 00:00: 00 omeprazole 2020-0 No 1mg 20 mg 2-11 capsule,del 00:00: ayed 00 release prednisone 2020-0 No mg 10 mg 2-11 tablet 00:00: 00 metformin 2020-0 No 1mg 1,000 mg 2-11 tablet 00:00: 00 omeprazole 2020-0 No 1mg 20 mg 2-11 capsule,del 00:00: ayed 00 release prednisone 2020-0 No mg 10 mg 2-11 tablet 00:00: 00 metformin 2020-0 No 1mg 1,000 mg 2-11 tablet 00:00: 00 prednisone 2020-0 No mg 10 mg 2-10 tablet 00:00: 00 metformin 2020-0 No 1mg 1,000 mg 2-10 tablet 00:00: 00 omeprazole 2020-0 No 1mg 20 mg 2-10 capsule,del 00:00: ayed 00 release prednisone 2020-0 No mg 10 mg 2-10 tablet 00:00: 00 metformin 2020-0 No 1mg 1,000 mg 2-10 tablet 00:00: 00 omeprazole 2020-0 No 1mg 20 mg 2-10 capsule,del 00:00: ayed 00 release prednisone 2020-0 No mg 10 mg 2-10 tablet 00:00: 00 metformin 2020-0 No 1mg 1,000 mg 2-10 tablet 00:00: 00 omeprazole 2020-0 No 1mg 20 mg 2-10 capsule,del 00:00: ayed 00 release Immunizations Ordered Immunization Filled Immunization Date Status Commen ts Source Name Name Danielle HERNÁNDEZ 2020-06-09 Completed Vaccine 00:00:00 Danielle TRACYID-Amandeep 2020-06-09 Completed Vaccine 00:00:00 Danielle TRACYID-19 2020-06-09 Completed Vaccine 00:00:00 Danielle COVID-19 2020-05-04 Completed Vaccine 00:00:00 Danielle TRACYID-19 2020-05-04 Completed Vaccine 00:00:00 Danielle COVID-19 2020-05-04 Completed Vaccine 00:00:00 Vital Signs Vital Name Observation Time Observation Value Comments Source Systolic blood 2021-01-21 17:16:00 108 mm[Hg] Univer sity of pressure [facility] Diastolic blood 2021-01-21 17:16:00 74 mm[Hg] Unive rsity of [facility] Heart rate 2021-01-21 17:16:00 77 /min [facility] Body temperature 2021-01-21 17:16:00 35.94 Valorie [facility] Respiratory rate 2021-01-21 17:16:00 16 /min [facility] Oxygen saturation in 2021-01-21 17:16:00 98 /min [facility] Arterial blood by [facility] Pulse oximetry Branch Body weight 2021-01-18 02:28:00 71 kg [facility] BMI 2021-01-18 02:28:00 26.87 kg/m2 [facility] Body height 2021-01-17 02:40:00 162.6 cm [facility] BP Systolic 2021-11-29 15:57:00 127 mm[Hg] BP Diastolic 2021-11-29 15:57:00 81 mm[Hg] Weight Measured 2021-11-29 15:57:00 160.60 pounds Height Measured 2021-11-29 15:57:00 64.00 inches Body Temperature 2021-11-29 15:57:00 Heart Rate 2021-11-29 15:57:00 67.00 /min Respiratory Rate 2021-11-29 15:57:00 BP Systolic 2021-11-14 15:10:00 137 mm[Hg] BP Diastolic 2021-11-14 15:10:00 77 mm[Hg] Weight Measured 2021-11-14 15:10:00 161.40 pounds Height Measured 2021-11-14 15:10:00 64.00 inches Body Temperature 2021-11-14 15:10:00 98.10 degrees Heart Rate 2021-11-14 15:10:00 87.00 /min Respiratory Rate 2021-11-14 15:10:00 16.00 /min Body Temperature 2021-10-16 17:33:00 98.40 degrees Heart Rate 2021-10-16 17:33:00 84.00 /min Respiratory Rate 2021-10-16 17:33:00 18.00 /min BP Systolic 2021-10-16 17:33:00 116 mm[Hg] BP Diastolic 2021-10-16 17:33:00 76 mm[Hg] Weight Measured 2021-10-16 17:33:00 158.20 pounds Height Measured 2021-10-16 17:33:00 64.00 inches BP Systolic 2021-09-17 13:44:00 128 mm[Hg] BP Diastolic 2021-09-17 13:44:00 57 mm[Hg] Weight Measured 2021-09-17 13:44:00 161.20 pounds Height Measured 2021-09-17 13:44:00 64.00 inches Body Temperature 2021-09-17 13:44:00 98.30 degrees Heart Rate 2021-09-17 13:44:00 85.00 /min Respiratory Rate 2021-09-17 13:44:00 18.00 /min BP Systolic 2021-08-13 16:03:00 114 mm[Hg] BP Diastolic 2021-08-13 16:03:00 72 mm[Hg] Weight Measured 2021-08-13 16:03:00 160.60 pounds Height Measured 2021-08-13 16:03:00 64.00 inches Body Temperature 2021-08-13 16:03:00 98.40 degrees Heart Rate 2021-08-13 16:03:00 73.00 /min Respiratory Rate 2021-08-13 16:03:00 18.00 /min BP Systolic 2021-07-17 14:59:00 124 mm[Hg] BP Diastolic 2021-07-17 14:59:00 82 mm[Hg] Weight Measured 2021-07-17 14:59:00 154.40 pounds Height Measured 2021-07-17 14:59:00 64.00 inches Body Temperature 2021-07-17 14:59:00 98.10 degrees Heart Rate 2021-07-17 14:59:00 95.00 /min Respiratory Rate 2021-07-17 14:59:00 16.00 /min BP Systolic 2021-07-09 15:35:00 113 mm[Hg] BP Diastolic 2021-07-09 15:35:00 76 mm[Hg] Weight Measured 2021-07-09 15:35:00 151.60 pounds Height Measured 2021-07-09 15:35:00 64.00 inches Body Temperature 2021-07-09 15:35:00 98.30 degrees Heart Rate 2021-07-09 15:35:00 83.00 /min Respiratory Rate 2021-07-09 15:35:00 16.00 /min BP Systolic 2021-07-04 16:21:00 143 mm[Hg] BP Diastolic 2021-07-04 16:21:00 82 mm[Hg] Weight Measured 2021-07-04 16:21:00 153.00 pounds Height Measured 2021-07-04 16:21:00 64.00 inches Body Temperature 2021-07-04 16:21:00 98.10 degrees Heart Rate 2021-07-04 16:21:00 80.00 /min Respiratory Rate 2021-07-04 16:21:00 16.00 /min BP Systolic 2021-01-23 14:18:00 118 mm[Hg] BP Diastolic 2021-01-23 14:18:00 77 mm[Hg] Weight Measured 2021-01-23 14:18:00 152.00 pounds Height Measured 2021-01-23 14:18:00 64.00 inches Body Temperature 2021-01-23 14:18:00 98.30 degrees Heart Rate 2021-01-23 14:18:00 78.00 /min Respiratory Rate 2021-01-23 14:18:00 16.00 /min BP Systolic 2020-03-20 09:57:00 122 mm[Hg] BP Diastolic 2020-03-20 09:57:00 70 mm[Hg] Weight Measured 2020-03-20 09:57:00 162.40 pounds Height Measured 2020-03-20 09:57:00 64.00 inches Body Temperature 2020-03-20 09:57:00 98.40 degrees Heart Rate 2020-03-20 09:57:00 69.00 /min Respiratory Rate 2020-03-20 09:57:00 18.00 /min BP Systolic 2019-07-11 15:33:00 118 mm[Hg] BP Diastolic 2019-07-11 15:33:00 85 mm[Hg] Weight Measured 2019-07-11 15:33:00 157.40 pounds Height Measured 2019-07-11 15:33:00 64.00 inches Body Temperature 2019-07-11 15:33:00 99.20 degrees Heart Rate 2019-07-11 15:33:00 98.00 /min Respiratory Rate 2019-07-11 15:33:00 16.00 /min BP Systolic 2019-06-08 16:48:00 126 mm[Hg] BP Diastolic 2019-06-08 16:48:00 82 mm[Hg] Weight Measured 2019-06-08 16:48:00 156.00 pounds Height Measured 2019-06-08 16:48:00 64.00 inches Body Temperature 2019-06-08 16:48:00 99.40 degrees Heart Rate 2019-06-08 16:48:00 93.00 /min Respiratory Rate 2019-06-08 16:48:00 16.00 /min Procedures Procedure Date / Time Performing Clinician Source Performed AUTHORIZATION FOR RELEASE 2021-01-22 05:01:00 Doctor Unassigned, [facility] [place] [facility] POCT GLUCOSE (AUTOMATED) 2021-01-21 22:09:00 Jaun Dawson [facility] POCT GLUCOSE (AUTOMATED) 2021-01-21 17:17:00 Juan Dawson [facility] POCT GLUCOSE (AUTOMATED) 2021-01-21 13:05:00 DawsonJuan hebert versity of [facility] POCT GLUCOSE (AUTOMATED) 2021-01-21 08:10:00 Juan Dawson versity of [facility] POCT GLUCOSE (AUTOMATED) 2021-01-21 01:19:00 SamirJuan versity of [facility] POCT GLUCOSE (AUTOMATED) 2021-01-20 21:53:00 SamirJuan versity of [facility] POCT GLUCOSE (AUTOMATED) 2021-01-20 17:07:00 SamirJuan versity of [facility] POCT GLUCOSE (AUTOMATED) 2021-01-20 12:56:00 SamirTeodoroJuan Holli versity of [facility] POCT GLUCOSE (AUTOMATED) 2021-01-20 01:31:00 [facility] POCT GLUCOSE (AUTOMATED) 2021-01-19 23:15:00 Juan Dawson Holli versity of [facility] POCT GLUCOSE (AUTOMATED) 2021-01-19 21:39:00 Juan Dawson Holli versity of [facility] MR BRAIN W WO CONTRAST 2021-01-19 20:03:00 Franki Sainz [facility] POCT GLUCOSE (AUTOMATED) 2021-01-19 18:08:00 Samir Juan Holli [facility] POCT GLUCOSE (AUTOMATED) 2021-01-19 15:21:00 Juan Dawson Holli [facility] COMP. METABOLIC PANEL 2021-01-19 09:48:00 Franki Sainz [facility] ([id number]) [facility] SEDIMENTATION RATE 2021-01-19 09:48:00 Franki Sainz [facility] CBC WITH DIFF 2021-01-19 09:48:00 Dosrupesh Franki Mina o f [facility] WEST NILE VIRUS ANTIBODY, 2021-01-19 09:48:00 [facility] 2021-01-19 09:48:00 Franki Sainz [facility] POCT GLUCOSE (AUTOMATED) 2021-01-19 03:19:00 Juan Dawson [facility] POCT GLUCOSE (AUTOMATED) 2021-01-18 22:04:00 Charlie [facility] POCT GLUCOSE (AUTOMATED) 2021-01-18 20:33:00 Charlie [facility] POCT GLUCOSE (AUTOMATED) 2021-01-18 16:27:00 Charlie [facility] POCT GLUCOSE (AUTOMATED) 2021-01-18 12:23:00 Charlie [facility] POCT GLUCOSE (AUTOMATED) 2021-01-18 05:03:00 Charlie [facility] GC & CHLAMYDIA AMPLIFIED 2021-01-18 02:27[facility] 2021-01-18 02:27:[address] [facility] MISCELLANEOUS SEND OUT 2021-01-18 02:25:[address] [facility] POCT GLUCOSE (AUTOMATED) 2021-01-18 01:21:00 Charlie [facility] POCT GLUCOSE (AUTOMATED) 2021-01-17 22:11:00 Charlie [facility] CT THORAX W CONTRAST 2021-01-17 21:11:00 Juan Dawson [facility] POCT GLUCOSE (AUTOMATED) 2021-01-17 16:47:00 Charlie [facility] TRANSTHORACIC ECHO (TTE) 2021-01-17 15:31:36 Juan Dawson [facility] COMPLETE W/ CONTRAST Medical [facility] POCT GLUCOSE (AUTOMATED) 2021-01-17 13:18:00 Charlie [facility] MR BRAIN WO CONTRAST 2021-01-17 10:32:55 Juan Dawson [facility] CBC WITHOUT DIFF 2021-01-17 09:33:00 Juan Dawson [facility] BLOOD CULTURE SCREEN 2021-01-17 04:04:00 Juan Dawson [facility] C-REACTIVE PROTEIN 2021-01-17 04:04:00 Samir [facility] SEDIMENTATION RATE 2021-01-17 04:04:00 Samir [facility] HEPATITIS B SURFACE 2021-01-17 04:04:00 Taqueria Dana [facility] ANTIBODY [facility] HEPATITIS B SURFACE 2021-01-17 04:04:00 Taqueria [facility] ANTIGEN [facility] HCV ANTIBODY 2021-01-17 04:04:00 Taqueria [facility] HBC ANTIBODY (IGM & IGG) 2021-01-17 04:04:00 Dana Meng [facility] RPR (QUANTITATIVE) 2021-01-17 04:04:00 [facility] PROCAL[facility]IN 2021-01-17 04:04:00 Samir [facility] HIV 1/2 AG-AB WITH REFLEX 2021-01-17 04:04:00 Taqueria [facility] HB ECG ROUTINE & RHYTHM 2021-01-16 22:20:16 Mauro Turcios [facility] XR CHEST 1 VW 2021-01-16 21:31:42 Mauro Turcios [facility] CT ABDOMEN PELVIS W 2021-01-16 21:19:14 Mauro Turcios [facility] BLOOD CULTURE SCREEN 2021-01-16 20:54:00 Mauro Turcios [facility] LACTIC ACID WHOLE BLOOD 2021-01-16 20:54:00 Mauro Turcios [facility] BLOOD CULTURE SCREEN 2021-01-16 20:38:00 Mauro Turcios [facility] PROTHROMBIN TIME / INR 2021-01-16 20:07:00 Mauro Turcios [facility] CT HEAD WO CONTRAST 2021-01-16 19:38:00 Mauro Turcios [facility] URINALYSIS 2021-01-16 19:22:00 Mauro Turcios [facility] URINE CULTURE 2021-01-16 19:22:00 Mauro Turcios [facility] COVID-19 (ID NOW RAPID 2021-01-16 19:20:00 Mauro Turcios [facility] TESTING) Medical Branch LAB ONLY COVID 2021-01-16 19:20:00 Mauro Turcios [facility] INTERPRETATION [facility] LIPASE 2021-01-16 19:05:00 Mauro Turcios [facility] TROPONIN I 2021-01-16 19:05:00 Mauro Turcios [facility] COMP. METABOLIC PANEL 2021-01-16 19:05:00 Mauro Turcios [facility] ([id number]) Medical Branch CBC WITH DIFF 2021-01-16 19:05:00 Mauro Turcios [facility] GLYCOSYLATED HEMOGLOBIN 2021-01-16 19:05:00 Juan Dawson [facility] (A1C) Medical Branch Plan of Care Planned Activity Planned Date Details Comments Source Goal Plan of Care Note [code = 73123-1] Goal Plan of Care Note [code = 49386-0] Goal Plan of Care Note [code = 23793-4] Goal Plan of Care Note [code = 62000-8] Goal Plan of Care Note [code = 28090-0] Goal Plan of Care Note [code = 46225-8] Goal Plan of Care Note [code = 28123-3] Goal Plan of Care Note [code = 89034-3] Goal Plan of Care Note [code = 58784-2] Goal Plan of Care Note [code = 50729-1] Goal Plan of Care Note [code = 71873-9] Goal Plan of Care Note [code = 09595-9] Goal Plan of Care Note [code = 46483-1] Goal Plan of Care Note [code = 06388-9] Goal Plan of Care Note [code = 79224-8] Goal Plan of Care Note [code = 97858-9] Goal Plan of Care Note [code = 28005-5] Goal Plan of Care Note [code = 03880-5] Goal Plan of Care Note [code = 40384-1] Goal Plan of Care Note [code = 23629-7] Goal Plan of Care Note [code = 76165-6] Goal Plan of Care Note [code = 93264-4] Goal Plan of Care Note [code = 92413-8] Goal Plan of Care Note [code = 72331-8] Goal Plan of Care Note [code = 26484-9] Goal Plan of Care Note [code = 83914-0] Goal Plan of Care Note [code = 99735-1] Goal Plan of Care Note [code = 12369-5] Goal Plan of Care Note [code = 28694-4] Goal Plan of Care Note [code = 60845-7] Goal Plan of Care Note [code = 23400-6] Goal Plan of Care Note [code = 09749-5] Goal Plan of Care Note [code = 61486-4] Goal Plan of Care Note [code = 84080-0] Goal Plan of Care Note [code = 91188-5] Goal Plan of Care Note [code = 80368-3] Goal Plan of Care Note [code = 04544-2] Goal Plan of Care Note [code = 11380-3] Goal Plan of Care Note [code = 46676-8] Goal Plan of Care Note [code = 30470-9] Goal Plan of Care Note [code = 08699-1] Goal Plan of Care Note [code = 08219-1] Goal Plan of Care Note [code = 43639-0] Goal Plan of Care Note [code = 10188-8] Goal Plan of Care Note [code = 68529-5] Goal Plan of Care Note [code = 77758-8] Goal Plan of Care Note [code = 30440-6] Goal Plan of Care Note [code = 22287-4] Goal Plan of Care Note [code = 94309-2] Goal Plan of Care Note [code = 67862-4] Goal Plan of Care Note [code = 85304-2] Goal Plan of Care Note [code = 25793-1] Goal Plan of Care Note [code = 52058-0] Goal Plan of Care Note [code = 23388-9] Goal Plan of Care Note [code = 18901-3] Goal Plan of Care Note [code = 69908-0] Goal Plan of Care Note [code = 32814-8] Goal Plan of Care Note [code = 77523-6] Goal Plan of Care Note [code = 72914-0] Goal Plan of Care Note [code = 65583-9] Goal Plan of Care Note [code = 35956-1] Goal Plan of Care Note [code = 82387-8] Goal Plan of Care Note [code = 14380-6] Goal Plan of Care Note [code = 38940-0] Goal Plan of Care Note [code = 12702-4] Goal Plan of Care Note [code = 76679-4] Goal Plan of Care Note [code = 40664-2] Goal Plan of Care Note [code = 61364-3] Goal Plan of Care Note [code = 80882-4] Goal Plan of Care Note [code = 32399-6] Goal Plan of Care Note [code = 91866-9] Goal Plan of Care Note [code = 91788-1] Goal Plan of Care Note [code = 52229-6] Goal Plan of Care Note [code = 28993-2] Goal Plan of Care Note [code = 44294-8] Goal Plan of Care Note [code = 52357-0] Goal Plan of Care Note [code = 91575-8] Goal Plan of Care Note [code = 18710-5] Goal Plan of Care Note [code = 22908-9] Goal Plan of Care Note [code = 18810-7] Goal Plan of Care Note [code = 89100-8] Goal Plan of Care Note [code = 25001-2] Goal Plan of Care Note [code = 68590-3] Goal Plan of Care Note [code = 42252-3] Goal Plan of Care Note [code = 72313-9] Goal Plan of Care Note [code = 80368-3] Goal Plan of Care Note [code = 25687-8] Goal Plan of Care Note [code = 65099-5] Goal Plan of Care Note [code = 98438-7] Goal Plan of Care Note [code = 42294-0] Goal Plan of Care Note [code = 55741-6] Goal Plan of Care Note [code = 91127-6] Goal Plan of Care Note [code = 95042-5] Goal Plan of Care Note [code = 08964-9] Goal Plan of Care Note [code = 39007-6] Goal Plan of Care Note [code = 96413-7] Encounters Start End Encounter Admission Attending Care Care Encounter Source Date/Time Date/Time Type Type Clinicians Facility Department ID 2022-08-26 2022-08-26 Outpatient SFA SFA [id number] 023 [place] 14:34:07 14:34:07 0530 F Alexis 2022-08-21 2022-08-21 Outpatient SFA SFA [id number] 023 [place] 16:20:59 16:20:59 0525 F Alexis 2022-05-15 2022-05-15 Outpatient SFA SFA [id number] 023 [place] 15:10:58 15:10:58 0216 F Alexis 2022-03-13 2022-03-13 Outpatient SFA SFA [id number] 022 [place] 15:21:54 15:21:54 1215 F Alexis 2022-02-11 2022-02-11 Outpatient SFA SFA [id number] 022 [place] 15:13:22 15:13:22 1115 F Alexis 2021-11-29 2021-11-29 Outpatient [id number]- [id number]-3 00:00:00 00:00:00 Visit 4627-4ebb 627-4ebb-a -u1o2-j97 4p3-a91153 8206f8m0s 2d9d6e 2021-11-14 2021-11-14 Outpatient [id number]- [id number] cd 16b71h-r 00:00:00 00:00:00 Visit pq61-9075 d04-9940-8 -2s3n-z88 h8c-m03751 191s16wdz c30dbf 2021-10-16 2021-10-16 Outpatient [id number] [id number] 00:00:00 00:00:00 Visit g8f6-7811 3h5-9152-y -r47q-59r 93a-63e10b 12w867ynz 799dfe 2021-01-22 2021-01-22 Orders Doctor JAY 1.2.840.114 [id number] [facility] 00:00:00 00:00:00 Only Unassigned, DOYLE 350.1.13.10 ity of [place] [facility] 4.2.7.2.686 Shivam as [id number] Medi rodrigo 009 Branch 2021-01-22 2021-01-22 Transition MarthaLuis Felipe damon 1.2.840.114 [id number] Univers 00:00:00 00:00:00 of Care Mikey Carden[facility] 350.1.13.10 [facility] [place] 4.2.7.2.686 Aure garrett [id number] [place] [address] Branch 2021-01-16 2021-01-21 Inpatient U SAMIR [facility] PAIGE [id number] Univers 13:15:00 17:45:00 PREMAL ity [facility] 2021-01-16 2021-01-21 Hospital Mauro Turcios 1.2.840.1 [id number] Univers 13:15:00 17:45:00 Encounter Nitin Guerra 350.1.13. 10 ity [facility] 4.2.7.2.686 [facility] G [id number] [place] [id number] [place] 2021-01-16 2021-01-16 Emergency X [facility] ERT [id number] Univers 12:56:00 12:56:00 [facility] Results Test Description Test Time Test Comments Results Result Comments Source LIPID PANEL 2022-02-13 05:52:20 Test Item Value Reference Range Interpretation Comme nts CHOLESTEROL (test code = 2210) 179 MG/DL <200 TRIGLYCERIDES (test code = 2232) 185 MG/DL <150 H HDL CHOLESTEROL (test code = 42 MG/DL >39 2220) CALC LDL CHOL (test code = 2237) 106 MG/DL <100 H NOTE: CALCULATED LDL IS BASED ON EVAN-FRANK METHOD WHICHINCLUDES A DJUSTABLE TRIGLYCERIDE:VL DL CHOLESTEROL RATIO.THIS FACT OR VARIES BY MEASURED TRIGLY CERIDE AND NON-HDLCHOLESTE ROL CONCENTRATIONS WITH INCREASED CALCULATED LDL SEENIN HIGHER T RIGLYCERIDE OR LOWER NON-HDL S PECIMENS. FOR MOREINFORMATION , SEE CLIENT ANNOUNCEMENT AT [email or web address] RISK RATIO LDL/HDL (test code = 2.52 RATIO <3.22 UNLESS OTHERWISE INDICATED, ALL 2238) TESTING PERFORM ED ATCLINICAL PATHOLOGY [employer] [address] [place] [address] LABORATORY DIRE CTOR: GREGORY ROACH M.D. CLIA NUMBER [id number] [place]. [id number] HEMOGLOBIN [id number] 02:49:07 Test Item Value Reference Range Interpretation Comments HEMOGLOBIN A1c (test 9.1 % 4.2-5.6 H [employer] AN DIABETES code = 01527) ASSOCIATION IDELINES FOR HGB A1C: PREDIABETES/INC REASED RISK . . . . . . . 5.7 -6.4% DIAGNOSIS OF DI ABETES . . . . . . . . . >=6 .5% WITH CONFIRMATION OR APPROPRIATE SYMPTOMS NOTE: ASSAY MAY BE AFFECTED BY HEMOGLOBINOPATH IES (SICKLE CELL ANEMIA, S- C DISEASE, OTHERS) OR PENELOPE FICIALLY LOWERED BY DECR EASED RED CELL SURVIVAL ( HEMOLYTIC ANEMIAS, BLOOD LOSS, ETC.). CONSIDER ALTERN ATE TESTING OR LABORATORY C ONSULTATION. HEMOGLOBIN [id number] 03:30:04 Test Item Value Reference Range Interpretation Comments HEMOGLOBIN A1c (test 10.1 % 4.2-5.6 H AMERI CAN DIABETES code = 26152) ASSOCIATION IDELINES FOR HGB A1C: PREDIABETES/INC REASED RISK . . . . . . . 5 .7-6.4% DIAGNOSIS OF DI ABETES . . . . . . . . . >=6 .5% WITH CONFIRMATION OR APPROPRIATE SYMPTOMS NOTE: ASSAY MAY BE AFFECTED BY HEMOGLOBINOPATH IES (SICKLE CELL ANEMIA, S- C DISEASE, OTHERS) OR PENELOPE FICIALLY LOWERED BY DECR EASED RED CELL SURVIVAL ( HEMOLYTIC ANEMIAS, BLOOD LOSS, ETC.). CONSIDER ALTERN ATE TESTING OR LABORATORY C ONSULTATION. UNLESS OTHERWIS E INDICATED, ALL TESTING PER [facility], [address] [address] LABORATORY DIRE CTOR: Joaquim CHAVEZ. CLIA NUMBER [id number] CAP ACCREDITATION N O. [id number] HEMOGLOBIN [id number] 00:00:00 Test Item Value Reference Range Interpretation Comments HEMOGLOBIN A1c (test code = 63444) 10.1 % HEMOGLOBIN [id number] 00:00:00 Test Item Value Reference Range Interpretation Comments HEMOGLOBIN A1c (test code = 63054) 10.1 % HEMOGLOBIN [id number] 00:00:00 Test Item Value Reference Range Interpretation Comments HEMOGLOBIN A1c (test code = 54116) 10.1 % HEMOGLOBIN [id number] 00:00:00 Test Item Value Reference Range Interpretation Comments HEMOGLOBIN A1c (test code = 09687) 10.9 % HEMOGLOBIN [id number] 00:00:00 Test Item Value Reference Range Interpretation Comments HEMOGLOBIN A1c (test code = 60168) 10.9 % HEMOGLOBIN [id number] 00:00:00 Test Item Value Reference Range Interpretation Comments HEMOGLOBIN A1c (test code = 89823) 10.9 % HEMOGLOBIN [id number] 00:00:00 Test Item Value Reference Range Interpretation Comments HEMOGLOBIN A1c (test code = 95868) 10.9 % HEMOGLOBIN [id number] 00:00:00 Test Item Value Reference Range Interpretation Comments HEMOGLOBIN A1c (test code = 27787) 10.9 % HEMOGLOBIN [id number] 00:00:00 Test Item Value Reference Range Interpretation Comments HEMOGLOBIN A1c (test code = 73514) 10.9 % HEMOGLOBIN [id number] 00:00:00 Test Item Value Reference Range Interpretation Comments HEMOGLOBIN A1c (test code = 69605) 10.9 % HEMOGLOBIN [id number] 00:00:00 Test Item Value Reference Range Interpretation Comments HEMOGLOBIN A1c (test code = 90838) 10.9 % HEMOGLOBIN [id number] 07:07:51 Test Item Value Reference Range Interpretation Comments HEMOGLOBIN A1c (test 12.7 % 4.2-5.6 H [employer] AN DIABETES code = 99837) ASSOCIATION IDELINES FOR HGB A1C: PREDIABETES/INC REASED RISK . . . . . . . 5 .7-6.4% DIAGNOSIS OF DI ABETES . . . . . . . . . >=6 .5% WITH CONFIRMATION OR APPROPRIATE SYMPTOMS NOTE: ASSAY MAY BE AFFECTED BY HEMOGLOBINOPATH IES (SICKLE CELL ANEMIA, S- C DISEASE, OTHERS) OR PENELOPE FICIALLY LOWERED BY DECR EASED RED CELL SURVIVAL ( HEMOLYTIC ANEMIAS, BLOOD LOSS, ETC.). CONSIDER ALTERN ATE TESTING OR LABORATORY C ONSULTATION. UNLESS OTHERWIS E INDICATED, ALL TESTING PER FORMED ATCLINICAL PATH [email or web address], [place]. [address] [place] [address] LABORATORY DIRE CTOR: Joaquim CHAVEZ. CLIA NUMBER [id number] CAP ACCREDITATION N O. [id number] HEMOGLOBIN [id number] 00:00:00 Test Item Value Reference Range Interpretation Comments HEMOGLOBIN A1c (test code = 64755) 12.7 % HEMOGLOBIN [id number] 00:00:00 Test Item Value Reference Range Interpretation Comments HEMOGLOBIN A1c (test code = 97749) 12.7 % HEMOGLOBIN [id number] 00:00:00 Test Item Value Reference Range Interpretation Comments HEMOGLOBIN A1c (test code = 58925) 12.7 % HEMOGLOBIN [id number] 00:00:00 Test Item Value Reference Range Interpretation Comments HEMOGLOBIN A1c (test code = 97244) 12.7 % HEMOGLOBIN [id number] 00:00:00 Test Item Value Reference Range Interpretation Comments HEMOGLOBIN A1c (test code = 52404) 12.7 % HEMOGLOBIN [id number] 00:00:00 Test Item Value Reference Range Interpretation Comments HEMOGLOBIN A1c (test code = 42918) 12.7 % HEMOGLOBIN [id number] 00:00:00 Test Item Value Reference Range Interpretation Comments HEMOGLOBIN A1c (test code = 92048) 12.7 % HEMOGLOBIN [id number] 00:00:00 Test Item Value Reference Range Interpretation Comments HEMOGLOBIN A1c (test code = 97291) 12.7 % PAP TEST, THINPREP, [id number] 07:51:49 Test Item Value Reference Range Interpretation Comments SOURCE: (test Cervical/Endo code = 8001) cervical SLIDES: (test 2 code = 8011) LMP: (test code = 2018 8021) SPECIMEN (NOTE) Satisfactory f or ADEQUACY: (test evaluation. Endocervical code = 38907) cells/transfor mation zone component present. INTERPRETATION: NILM/NO (test code = EPITH. --------- 73791) ABNORMALITY;S -------- EE BELOW NEGATIVE FO R INTRAEPITHELIAL LESION OR MALIGNANCY ( NILM) --------- --------- --------- - OTHER COMMENTS: (NOTE) Glacial acet ic acid (test code = added due to bl ood/mucus 8081) in specimen. AGRICULTURE TECHNICIAN: YARIEL (test code = MIKY MURPHY( 8101) CP)[facility] QC TECHNOLOGIST: MARQUEZ Latham (test code = LY,CT(ASCP) 8111) LOCATION: (test (NOTE) Specimens pr ocessed and code = 08822) [facility] at [facility], [address] [place] [address], , CLIA: [id number] CPT: (test code = (NOTE) 54556 UNLE SS OTHERWISE 8140) INDICATED, COMP UTER AIDED AND CYTOTECHNOLOGIS T SCREENING PERFO RMED. The Pap test is a s creening test with an in herent, but low probabi lity of error. Your pat ient should be remin ded to consult you imm ediately if she experien uriel any suspicious sign s or symptoms, regar dless of her Pap test re sult. An alternate repor t format containing imag es or consolidated pr ior Pap history is avai labho as applicable. PAP TEST, THINPREP, [id number] 00:00:00 Test Item Value Reference Range Interpretation Comments SOURCE: (test code = Cervical/Endocervical 8001) SLIDES: (test code = 2 8011) LMP: (test code = 8021) 2017 SPECIMEN ADEQUACY: (test (NOTE) code = 09432) INTERPRETATION: (test NILM/NO EPITH. code = 78779) ABNORMALITY;SEE BELOW OTHER COMMENTS: (test (NOTE) code = 8081) AGRICULTURE TECHNICIAN: (test YARIEL code = 8101) MIKY MURPHY(ASCP)IAC QC TECHNOLOGIST: (test MARQUEZ Latham LY,CT(ASCP) code = 8111) LOCATION: (test code = (NOTE) 31784) CPT: (test code = 8140) (NOTE) PAP TEST, THINPREP, [id number] 00:00:00 Test Item Value Reference Range Interpretation Comments SOURCE: (test code = Cervical/Endocervical 8001) SLIDES: (test code = 2 8011) LMP: (test code = 8021) 2018 SPECIMEN ADEQUACY: (test (NOTE) code = 51511) INTERPRETATION: (test NILM/NO EPITH. code = 75820) ABNORMALITY;SEE BELOW OTHER COMMENTS: (test (NOTE) code = 8081) AGRICULTURE TECHNICIAN: (test YARIEL code = 8101) MIKY MURPHY(ASCP)IAC QC TECHNOLOGIST: (test MARQUEZ ALiliya LY,CT(ASCP) code = 8111) LOCATION: (test code = (NOTE) 86225) CPT: (test code = 8140) (NOTE) PAP TEST, THINPREP, [id number] 00:00:00 Test Item Value Reference Range Interpretation Comments SOURCE: (test code = Cervical/Endocervical 8001) SLIDES: (test code = 2 8011) LMP: (test code = 8021) 2017 SPECIMEN ADEQUACY: (test (NOTE) code = 17358) INTERPRETATION: (test NILM/NO EPITH. code = 29155) ABNORMALITY;SEE BELOW OTHER COMMENTS: (test (NOTE) code = 8081) AGRICULTURE TECHNICIAN: (test YARIEL code = 8101) MIKY MURPHY(ASCP)IAC QC TECHNOLOGIST: (test MARQUEZ A. LY,CT(ASCP) code = 8111) LOCATION: (test code = (NOTE) 30437) CPT: (test code = 8140) (NOTE) PAP TEST, THINPREP, [id number] 00:00:00 Test Item Value Reference Range Interpretation Comments SOURCE: (test code = Cervical/Endocervical 8001) SLIDES: (test code = 2 8011) LMP: (test code = 8021) 2018 SPECIMEN ADEQUACY: (test (NOTE) code = 39292) INTERPRETATION: (test NILM/NO EPITH. code = 81027) ABNORMALITY;SEE BELOW OTHER COMMENTS: (test (NOTE) code = 8081) AGRICULTURE TECHNICIAN: (test YARIEL code = 8101) MIKY MURPHY(ASCP)IAC QC TECHNOLOGIST: (test MARQUEZ A. LY,CT(ASCP) code = 8111) LOCATION: (test code = (NOTE) 63145) CPT: (test code = 8140) (NOTE) PAP TEST, THINPREP, [id number] 00:00:00 Test Item Value Reference Range Interpretation Comments SOURCE: (test code = Cervical/Endocervical 8001) SLIDES: (test code = 2 8011) LMP: (test code = 8021) 2018 SPECIMEN ADEQUACY: (test (NOTE) code = 12932) INTERPRETATION: (test NILM/NO EPITH. code = 33742) ABNORMALITY;SEE BELOW OTHER COMMENTS: (test (NOTE) code = 8081) AGRICULTURE TECHNICIAN: (test YARIEL code = 8101) MIKY MURPHY(ASCP)IAC QC TECHNOLOGIST: (test MIKY ORO(ASCP) code = 8111) LOCATION: (test code = (NOTE) 66353) CPT: (test code = 8140) (NOTE) VAGINAL PATHOGENS DNA [id number] 14:47:44 Test Item Value Reference Range Interpretation Comments ANDREINA SPECIES (test code = ) POSITIVE NEGATIVE A G. VAGINALIS (test code = 25233) NEGATIVE NEGATIVE T. VAGINALIS (test code = 23393) NEGATIVE NEGATIVE [id number] 04:11:49 Test Item Value Reference Range Interpretation Comments RPR RESULT (test NON-REACTIVE NON-REACTIVE code = 3501) RPR TITER (test NOT INDIC. NOT INDIC. UNLESS OTHE RWISE code = 3500) TITER INDICATED, ALL TESTING PERFORMED [facility] [address] [place] [address] LABORATORY DIRE CTOR: GREGORY CLARKE M.D. CLIA NUMBER [id number] [place] [id number] VAGINAL PATHOGENS DNA [id number] 00:00:00 Test Item Value Reference Range Interpretation Comments ANDREINA SPECIES (test code = ) POSITIVE G. VAGINALIS (test code = 90088) NEGATIVE T. VAGINALIS (test code = 82551) NEGATIVE VAGINAL PATHOGENS DNA [id number] 00:00:00 Test Item Value Reference Range Interpretation Comments ANDREINA SPECIES (test code = 94085) POSITIVE G. VAGINALIS (test code = 92860) NEGATIVE T. VAGINALIS (test code = 33379) NEGATIVE [id number] 00:00:00 Test Item Value Reference Range Interpretation Comments RPR RESULT (test code = NON-REACTIVE 3501) RPR TITER (test code = 3500) NOT INDIC. TITER [id number] 00:00:00 Test Item Value Reference Range Interpretation Comments RPR RESULT (test code = NON-REACTIVE 3501) RPR TITER (test code = 3500) NOT INDIC. TITER [id number] 00:00:00 Test Item Value Reference Range Interpretation Comments RPR RESULT (test code = NON-REACTIVE 3501) RPR TITER (test code = 3500) NOT INDIC. TITER VAGINAL PATHOGENS DNA [id number] 00:00:00 Test Item Value Reference Range Interpretation Comments ANDREINA SPECIES (test code = ) POSITIVE G. VAGINALIS (test code = 12978) NEGATIVE T. VAGINALIS (test code = ) NEGATIVE VAGINAL PATHOGENS DNA [id number] 00:00:00 Test Item Value Reference Range Interpretation Comments ANDREINA SPECIES (test code = ) POSITIVE G. VAGINALIS (test code = ) NEGATIVE T. VAGINALIS (test code = 72115) NEGATIVE [id number] 00:00:00 Test Item Value Reference Range Interpretation Comments RPR RESULT (test code = NON-REACTIVE 3501) RPR TITER (test code = 3500) NOT INDIC. TITER [id number] 00:00:00 Test Item Value Reference Range Interpretation Comments RPR RESULT (test code = NON-REACTIVE 3501) RPR TITER (test code = 3500) NOT INDIC. TITER [id number] 00:00:00 Test Item Value Reference Range Interpretation Comments RPR RESULT (test code = NON-REACTIVE 3501) RPR TITER (test code = 3500) NOT INDIC. TITER VAGINAL PATHOGENS DNA [id number] 00:00:00 Test Item Value Reference Range Interpretation Comments ANDREINA SPECIES (test code = ) POSITIVE G. VAGINALIS (test code = ) NEGATIVE T. VAGINALIS (test code = ) NEGATIVE [id number] 00:00:00 Test Item Value Reference Range Interpretation Comments RPR RESULT (test code = NON-REACTIVE 3501) RPR TITER (test code = 3500) NOT INDIC. TITER [id number] 00:00:00 Test Item Value Reference Range Interpretation Comments RPR RESULT (test code = NON-REACTIVE 3501) RPR TITER (test code = 3500) NOT INDIC. TITER CT/NG, TMA, [id number] 18:31:59 Test Item Value Reference Range Interpretation Comments GONORRHEA, TMA NEGATIVE NEGATIVE Assay method ology is (test code = nucleic acid am plification 80468) by transcriptio n mediated amplification ( TMA) utilizing the A ptima Combo 2 Assay. CHLAMYDIA, TMA NEGATIVE NEGATIVE Assay method ology is (test code = nucleic acid am plification 27739) by transcriptio n mediated amplification ( TMA) utilizing the A ptima Combo 2 Assay. HPV HIGH RISK WITH GENOTYPE, [id number] 15:37:24 Test Item Value Reference Range Interpretation Comments HPV HIGH RISK INTERP NEGATIVE NEGATIVE (test code = 67377) HPV 16 (test code = NEGATIVE 88187) HPV 18 (test code = NEGATIVE 58241) HPV, HR, OTHER NEGATIVE Testing meth odology is GENOTYPES (test code real-ti me PCR utilizing = 95904) hydrolysis prob es with the [employer] 4800 system. The baylee t individually de tects genotypes 16 an d 18, as well as the oth er 12 high risk types (31,33,35,39,45 ,51,52,56 ,58,59,66,68). The expected result is negative. A ne gative result does not rule out the presence of HPV not included in the genotype set, a low leve l of infection or sp ecimen sampling error. UNLESS OTHERWISE INDIC ATED, ALL TESTING PERFORM ED ATCLINICAL PATH OLOGY LABORATORIES, [facility]. [address] [place] [address] LABORATORY DIRE CTOR: GREGORY CLARKE M.D. CLIA NUMBER [id number] [place] [id number] GC AND CHLAMYDIA AMPLIFIED, [id number] 00:00:00 Test Item Value Reference Range Interpretation Comments GONORRHEA, TMA (test code = 68332) NEGATIVE CHLAMYDIA, TMA (test code = 03819) NEGATIVE GC AND CHLAMYDIA AMPLIFIED, [id number] 00:00:00 Test Item Value Reference Range Interpretation Comments GONORRHEA, TMA (test code = 89374) NEGATIVE CHLAMYDIA, TMA (test code = 02147) NEGATIVE HPV HIGH RISK WITH GENOTYPE, [id number] 00:00:00 Test Item Value Reference Range Interpretation Comments HPV HIGH RISK INTERP (test code = NEGATIVE 62119) HPV 16 (test code = 36660) NEGATIVE HPV 18 (test code = 47353) NEGATIVE HPV, HR, OTHER GENOTYPES (test code NEGATIVE = 83190) HPV HIGH RISK WITH GENOTYPE, [id number] 00:00:00 Test Item Value Reference Range Interpretation Comments HPV HIGH RISK INTERP (test code = NEGATIVE 12466) HPV 16 (test code = 89018) NEGATIVE HPV 18 (test code = 49435) NEGATIVE HPV, HR, OTHER GENOTYPES (test code NEGATIVE = 18319) GC AND CHLAMYDIA AMPLIFIED, [id number] 00:00:00 Test Item Value Reference Range Interpretation Comments GONORRHEA, TMA (test code = 40570) NEGATIVE CHLAMYDIA, TMA (test code = 08287) NEGATIVE GC AND CHLAMYDIA AMPLIFIED, [id number] 00:00:00 Test Item Value Reference Range Interpretation Comments GONORRHEA, TMA (test code = 79815) NEGATIVE CHLAMYDIA, TMA (test code = 43286) NEGATIVE HPV HIGH RISK WITH GENOTYPE, [id number] 00:00:00 Test Item Value Reference Range Interpretation Comments HPV HIGH RISK INTERP (test code = NEGATIVE 10475) HPV 16 (test code = 16017) NEGATIVE HPV 18 (test code = 12561) NEGATIVE HPV, HR, OTHER GENOTYPES (test code NEGATIVE = 60040) HPV HIGH RISK WITH GENOTYPE, [id number] 00:00:00 Test Item Value Reference Range Interpretation Comments HPV HIGH RISK INTERP (test code = NEGATIVE 77750) HPV 16 (test code = 54961) NEGATIVE HPV 18 (test code = 84298) NEGATIVE HPV, HR, OTHER GENOTYPES (test code NEGATIVE = 53691) GC AND CHLAMYDIA AMPLIFIED, [id number] 00:00:00 Test Item Value Reference Range Interpretation Comments GONORRHEA, TMA (test code = 93708) NEGATIVE CHLAMYDIA, TMA (test code = 09423) NEGATIVE HPV HIGH RISK WITH GENOTYPE, [id number] 00:00:00 Test Item Value Reference Range Interpretation Comments HPV HIGH RISK INTERP (test code = NEGATIVE 09513) HPV 16 (test code = 69846) NEGATIVE HPV 18 (test code = 24325) NEGATIVE HPV, HR, OTHER GENOTYPES (test code NEGATIVE = 39089) ALBUMIN/CREATININE RATIO, URINE, [id number] 01:57:25 Test Item Value Reference Range Interpretation Comments CREATININE, URINE, 65.2 MG/DL NOT ESTAB RANDOM (test code = 2072) ALBUMIN, URINE, 0.3 MG/DL NOT ESTAB RANDOM (test code = 81540) CALC 5 MG/G <30 Note: Albumin/ Creatinine ALBUMIN/CREAT, RND ratio ref erence interval (test code = reflects ADA [place] NKF [address]3214) guidelines. UNL ESS OTHERWISE INDIC ATED, ALL TESTING PERFORM ED ATCLINICAL PATH OLOGY LABORATORIES, [place] [place] [address] LABORATORY DIRE CTOR: Joaquim CHAVEZ. CLIA NUMBER [id number] CAP ACCREDITATION N O. [id number] MICROALBUMIN/CREATININE, RANDOM AND [id number] 00:00:00 Test Item Value Reference Range Interpretation Comments CREATININE, URINE, RANDOM (test 65.2 MG/DL code = 2072) ALBUMIN, URINE, RANDOM (test code 0.3 MG/DL = 12084) CALC ALBUMIN/CREAT, RND (test code 5 MG/G = 79543) MICROALBUMIN/CREATININE, RANDOM AND [id number] 00:00:00 Test Item Value Reference Range Interpretation Comments CREATININE, URINE, RANDOM (test 65.2 MG/DL code = 2072) ALBUMIN, URINE, RANDOM (test code 0.3 MG/DL = 89279) CALC ALBUMIN/CREAT, RND (test code 5 MG/G = 29975) MICROALBUMIN/CREATININE, RANDOM AND [id number] 00:00:00 Test Item Value Reference Range Interpretation Comments CREATININE, URINE, RANDOM (test 65.2 MG/DL code = 2072) ALBUMIN, URINE, RANDOM (test code 0.3 MG/DL = 05606) CALC ALBUMIN/CREAT, RND (test code 5 MG/G = 71074) MICROALBUMIN/CREATININE, RANDOM AND [id number] 00:00:00 Test Item Value Reference Range Interpretation Comments CREATININE, URINE, RANDOM (test 65.2 MG/DL code = 2072) ALBUMIN, URINE, RANDOM (test code 0.3 MG/DL = 94560) CALC ALBUMIN/CREAT, RND (test code 5 MG/G = 14951) MICROALBUMIN/CREATININE, RANDOM AND [id number] 00:00:00 Test Item Value Reference Range Interpretation Comments CREATININE, URINE, RANDOM (test 65.2 MG/DL code = 2071) ALBUMIN, URINE, RANDOM (test code 0.3 MG/DL = 17478) CALC ALBUMIN/CREAT, RND (test code 5 MG/G = 61435) COMPREHENSIVE METABOLIC [id number] 00:29:28 Test Item Value Reference Range Interpretation Comments GLUCOSE (test code = 329 MG/DL 70-99 H 2216) BUN (test code = 9 MG/DL 6-20 2207) CREATININE (test 0.46 MG/DL 0.60-1.30 L code = 221) eGFR (2020 CKD-EPI) 114 >60 (test code = 97269) ML/MIN/1.73 CALC BUN/CREAT (test 20 RATIO 6-28 code = 2235) SODIUM (test code = 139 MEQ/L 223-529 5948) POTASSIUM (test code 4.1 MEQ/L 3.5-5.4 = 2227) CHLORIDE (test code 102 MEQ/L 95-107 = 2214) CARBON DIOXIDE (test 21 MEQ/L 19-31 code = 2205) CALCIUM (test code = 9.4 MG/DL 8.5-10.5 2208) PROTEIN, TOTAL (test 6.7 G/DL 6.1-8.3 code = 2228) ALBUMIN (test code = 4.2 G/DL 3.5-5.2 2200) CALC GLOBULIN (test 2.5 G/DL 1.9-3.7 code = 2240) CALC A/G RATIO (test 1.7 RATIO 1.0-2.6 code = 223) BILIRUBIN, TOTAL <0.2 MG/DL See_Comment [Automated message] (test code = 220) The syste m which generated this result transmit debbi reference range : <=1.2. The refe rence range was not u sed to interpret th is result as normal/abnormal . ALKALINE PHOSPHATASE 117 U/L 40-133 (test code = 2204) AST (test code = 16 U/L 9-40 2217) ALT (test code = 10 U/L 5-40 2218) LIPID [id number] 00:29:28 Test Item Value Reference Range Interpretation Comments CHOLESTEROL (test 212 MG/DL <200 H code = 2210) TRIGLYCERIDES (test 298 MG/DL <150 H code = 2232) HDL CHOLESTEROL (test 39 MG/DL >39 L code = 2220) CALC LDL CHOL (test 130 MG/DL <100 H NOTE: C ALCULATED LDL code = 2237) IS BASED ON EVAN-FRANK METHOD WHICHINCLUDES ADJUSTABLE TRIGLYCERIDE:VL DL CHOLESTEROL RAT IO.THIS FACTOR VARIES B Y MEASURED TRIGLY CERIDE AND NON-HDLCHOL ESTEROL CONCENTRATIONS WITH INCREASED CALCU LATED LDL SEENIN HIGH ER TRIGLYCERIDE OR LOWER NON-HDL SPECIME NS. FOR MOREINFORMATION , SEE CLIENT ANNOUNCE MENT AT [email or web address] RISK RATIO LDL/HDL 3.33 RATIO <3.22 H (test code = 2238) COMPREHENSIVE METABOLIC [id number] 00:00:00 Test Item Value Reference Range Interpretation Comments GLUCOSE (test code = 2217) 329 MG/DL BUN (test code = 2208) 9 MG/DL CREATININE (test code = 2214) 0.46 MG/DL eGFR (2020 CKD-EPI) (test 114 ML/MIN/1.73 code = 92296) CALC BUN/CREAT (test code = 20 RATIO 5) SODIUM (test code = 2231) 139 MEQ/L POTASSIUM (test code = 2228) 4.1 MEQ/L CHLORIDE (test code = 2215) 102 MEQ/L CARBON DIOXIDE (test code = 21 MEQ/L 2205) CALCIUM (test code = 2209) 9.4 MG/DL PROTEIN, TOTAL (test code = 6.7 G/DL 2228) ALBUMIN (test code = 2201) 4.2 G/DL CALC GLOBULIN (test code = 2.5 G/DL 224) CALC A/G RATIO (test code = 1.7 RATIO 2233) BILIRUBIN, TOTAL (test code = <0.2 MG/DL 2206) ALKALINE PHOSPHATASE (test 117 U/L code = 2204) AST (test code = 2218) 16 U/L ALT (test code = 2219) 10 U/L COMPREHENSIVE METABOLIC [id number] 00:00:00 Test Item Value Reference Range Interpretation Comments GLUCOSE (test code = 2217) 329 MG/DL BUN (test code = 2208) 9 MG/DL CREATININE (test code = 2214) 0.46 MG/DL eGFR (2020 CKD-EPI) (test 114 ML/MIN/1.73 code = 68793) CALC BUN/CREAT (test code = 20 RATIO 2235) SODIUM (test code = 2231) 139 MEQ/L POTASSIUM (test code = 2228) 4.1 MEQ/L CHLORIDE (test code = 2215) 102 MEQ/L CARBON DIOXIDE (test code = 21 MEQ/L 2205) CALCIUM (test code = 2209) 9.4 MG/DL PROTEIN, TOTAL (test code = 6.7 G/DL 2228) ALBUMIN (test code = 2201) 4.2 G/DL CALC GLOBULIN (test code = 2.5 G/DL 2239) CALC A/G RATIO (test code = 1.7 RATIO 2233) BILIRUBIN, TOTAL (test code = <0.2 MG/DL 2206) ALKALINE PHOSPHATASE (test 117 U/L code = 220) AST (test code = 2218) 16 U/L ALT (test code = 2219) 10 U/L LIPID [id number] 00:00:00 Test Item Value Reference Range Interpretation Comments CHOLESTEROL (test code = 2210) 212 MG/DL TRIGLYCERIDES (test code = 2232) 298 MG/DL HDL CHOLESTEROL (test code = 2220) 39 MG/DL CALC LDL CHOL (test code = 2237) 130 MG/DL RISK RATIO LDL/HDL (test code = 3.33 RATIO 2238) LIPID [id number] 00:00:00 Test Item Value Reference Range Interpretation Comments CHOLESTEROL (test code = 2210) 212 MG/DL TRIGLYCERIDES (test code = 2232) 298 MG/DL HDL CHOLESTEROL (test code = 2220) 39 MG/DL CALC LDL CHOL (test code = 2237) 130 MG/DL RISK RATIO LDL/HDL (test code = 3.33 RATIO 2238) COMPREHENSIVE METABOLIC [id number] 00:00:00 Test Item Value Reference Range Interpretation Comments GLUCOSE (test code = 2217) 329 MG/DL BUN (test code = 2208) 9 MG/DL CREATININE (test code = 2214) 0.46 MG/DL eGFR (2020 CKD-EPI) (test 114 ML/MIN/1.73 code = 22471) CALC BUN/CREAT (test code = 20 RATIO 2235) SODIUM (test code = 2231) 139 MEQ/L POTASSIUM (test code = 2228) 4.1 MEQ/L CHLORIDE (test code = 2215) 102 MEQ/L CARBON DIOXIDE (test code = 21 MEQ/L 2205) CALCIUM (test code = 2209) 9.4 MG/DL PROTEIN, TOTAL (test code = 6.7 G/DL 2228) ALBUMIN (test code = 2201) 4.2 G/DL CALC GLOBULIN (test code = 2.5 G/DL 2240) CALC A/G RATIO (test code = 1.7 RATIO 2234) BILIRUBIN, TOTAL (test code = <0.2 MG/DL 2206) ALKALINE PHOSPHATASE (test 117 U/L code = 2204) AST (test code = 2218) 16 U/L ALT (test code = 2219) 10 U/L COMPREHENSIVE METABOLIC [id number] 00:00:00 Test Item Value Reference Range Interpretation Comments GLUCOSE (test code = 2217) 329 MG/DL BUN (test code = 2208) 9 MG/DL CREATININE (test code = 2214) 0.46 MG/DL eGFR (2020 CKD-EPI) (test 114 ML/MIN/1.73 code = 04339) CALC BUN/CREAT (test code = 20 RATIO 2235) SODIUM (test code = 2231) 139 MEQ/L POTASSIUM (test code = 2228) 4.1 MEQ/L CHLORIDE (test code = 2215) 102 MEQ/L CARBON DIOXIDE (test code = 21 MEQ/L 2205) CALCIUM (test code = 2209) 9.4 MG/DL PROTEIN, TOTAL (test code = 6.7 G/DL 2228) ALBUMIN (test code = 2201) 4.2 G/DL CALC GLOBULIN (test code = 2.5 G/DL 2240) CALC A/G RATIO (test code = 1.7 RATIO 2234) BILIRUBIN, TOTAL (test code = <0.2 MG/DL 2206) ALKALINE PHOSPHATASE (test 117 U/L code = 2204) AST (test code = 2218) 16 U/L ALT (test code = 2219) 10 U/L LIPID [id number] 00:00:00 Test Item Value Reference Range Interpretation Comments CHOLESTEROL (test code = 2210) 212 MG/DL TRIGLYCERIDES (test code = 2232) 298 MG/DL HDL CHOLESTEROL (test code = 2220) 39 MG/DL CALC LDL CHOL (test code = 2237) 130 MG/DL RISK RATIO LDL/HDL (test code = 3.33 RATIO 2238) LIPID [id number] 00:00:00 Test Item Value Reference Range Interpretation Comments CHOLESTEROL (test code = 2210) 212 MG/DL TRIGLYCERIDES (test code = 2232) 298 MG/DL HDL CHOLESTEROL (test code = 2220) 39 MG/DL CALC LDL CHOL (test code = 2237) 130 MG/DL RISK RATIO LDL/HDL (test code = 3.33 RATIO 2238) COMPREHENSIVE METABOLIC [id number] 00:00:00 Test Item Value Reference Range Interpretation Comments GLUCOSE (test code = 2217) 329 MG/DL BUN (test code = 2208) 9 MG/DL CREATININE (test code = 2214) 0.46 MG/DL eGFR (2020 CKD-EPI) (test 114 ML/MIN/1.73 code = 00782) CALC BUN/CREAT (test code = 20 RATIO 2235) SODIUM (test code = 2231) 139 MEQ/L POTASSIUM (test code = 2228) 4.1 MEQ/L CHLORIDE (test code = 2215) 102 MEQ/L CARBON DIOXIDE (test code = 21 MEQ/L 2205) CALCIUM (test code = 2209) 9.4 MG/DL PROTEIN, TOTAL (test code = 6.7 G/DL 2228) ALBUMIN (test code = 2201) 4.2 G/DL CALC GLOBULIN (test code = 2.5 G/DL 2240) CALC A/G RATIO (test code = 1.7 RATIO 2234) BILIRUBIN, TOTAL (test code = <0.2 MG/DL 2206) ALKALINE PHOSPHATASE (test 117 U/L code = 2204) AST (test code = 2218) 16 U/L ALT (test code = 2219) 10 U/L LIPID [id number] 00:00:00 Test Item Value Reference Range Interpretation Comments CHOLESTEROL (test code = 2210) 212 MG/DL TRIGLYCERIDES (test code = 2232) 298 MG/DL HDL CHOLESTEROL (test code = 2220) 39 MG/DL CALC LDL CHOL (test code = 2237) 130 MG/DL RISK RATIO LDL/HDL (test code = 3.33 RATIO 2238) HEMOGLOBIN [id number] 13:07:49 Test Item Value Reference Range Interpretation Comments HEMOGLOBIN A1c (test 13.7 % 4.2-5.6 H [employer] AN DIABETES code = 93976) ASSOCIATION IDELINES FOR HGB A1C: PREDIABETES/INC REASED RISK . . . . . . . 5 .7-6.4% DIAGNOSIS OF DI ABETES . . . . . . . . . >=6 .5% WITH CONFIRMATION OR APPROPRIATE SYMPTOMS NOTE: ASSAY MAY BE AFFECTED BY HEMOGLOBINOPATH IES (SICKLE CELL ANEMIA, S- C DISEASE, OTHERS) OR PENELOPE FICIALLY LOWERED BY DECR EASED RED CELL SURVIVAL ( HEMOLYTIC ANEMIAS, BLOOD LOSS, ETC.). CONSIDER ALTERN ATE TESTING OR LABORATORY C ONSULTATION. CBC W/AUTO DIFF WITH [id number] 04:49:19 Test Item Value Reference Range Interpretation Comments WBC (test code = 6.3 K/UL 3.5-11.0 1001) RBC (test code = 4.42 M/UL 3.80-5.40 1002) HEMOGLOBIN (test code 13.4 G/DL 11.5-15.5 = 1003) HEMATOCRIT (test code 38.6 % 34.0-45.0 = 1004) MCV (test code = 87.3 fL 80.0-99.0 1005) MCH (test code = 30.3 PG 25.0-33.0 1006) MCHC (test code = 34.7 G/DL 31.0-36.0 1007) RDW (test code = 13.0 % 11.5-15.0 1038) NEUTROPHILS (test 56.5 % code = 1008) LYMPHOCYTES (test 35.5 % code = 1010) MONOCYTES (test code 6.4 % = 1011) EOSINOPHILS (test 1.1 % code = 1012) BASOPHILS (test code 0.3 % = 1013) IMMATURE GRANULOCYTES 0.2 % (test code = 1036) NUCLEATED RBCS (test 0.0 /100 WBC'S See_Comment [Aut omated code = 1065) message] The sy stem which generated this result transmitted reference range : 0.0. The refere nce range was not u sed to interpret th is result as normal/abnormal . PLATELET COUNT (test 373 K/UL 130-400 code = 1015) ABSOLUTE NEUTROPHILS 3.56 K/UL 1.50-7.50 (test code = 1066) ABSOLUTE LYMPHOCYTES 2.23 K/UL 1.00-4.00 (test code = 1067) ABSOLUTE MONOCYTES 0.40 K/UL 0.20-1.00 (test code = 1068) ABSOLUTE EOSINOPHILS 0.07 K/UL 0.00-0.50 (test code = 1040) ABSOLUTE BASOPHILS 0.02 K/UL 0.00-0.20 (test code = 1069) ABS IMMATURE 0.01 K/UL 0.00-0.10 GRANULOCYTES (test code = 1020) ABS NUCLEATED RBCS 0.00 K/UL 0.00-0.11 (test code = 48105) CBC W/AUTO [id number] 00:00:00 Test Item Value Reference Range Interpretation Comments WBC (test code = 1001) 6.3 K/UL RBC (test code = 1002) 4.42 M/UL HEMOGLOBIN (test code = 1003) 13.4 G/DL HEMATOCRIT (test code = 1004) 38.6 % MCV (test code = 1005) 87.3 fL MCH (test code = 1006) 30.3 PG MCHC (test code = 1007) 34.7 G/DL RDW (test code = 1038) 13.0 % NEUTROPHILS (test code = 1008) 56.5 % LYMPHOCYTES (test code = 1010) 35.5 % MONOCYTES (test code = 1011) 6.4 % EOSINOPHILS (test code = 1012) 1.1 % BASOPHILS (test code = 1013) 0.3 % IMMATURE GRANULOCYTES (test 0.2 % code = 1036) NUCLEATED RBCS (test code = 0.0 /100WBC'S 1065) PLATELET COUNT (test code = 373 K/UL 1015) ABSOLUTE NEUTROPHILS (test code 3.56 K/UL = 1066) ABSOLUTE LYMPHOCYTES (test code 2.23 K/UL = 1067) ABSOLUTE MONOCYTES (test code = 0.40 K/UL 1068) ABSOLUTE EOSINOPHILS (test code 0.07 K/UL = 1040) ABSOLUTE BASOPHILS (test code = 0.02 K/UL 1069) ABS IMMATURE GRANULOCYTES (test 0.01 K/UL code = 1020) ABS NUCLEATED RBCS (test code = 0.00 K/UL 24125) CBC W/AUTO [id number] 00:00:00 Test Item Value Reference Range Interpretation Comments WBC (test code = 1001) 6.3 K/UL RBC (test code = 1002) 4.42 M/UL HEMOGLOBIN (test code = 1003) 13.4 G/DL HEMATOCRIT (test code = 1004) 38.6 % MCV (test code = 1005) 87.3 fL MCH (test code = 1006) 30.3 PG MCHC (test code = 1007) 34.7 G/DL RDW (test code = 1038) 13.0 % NEUTROPHILS (test code = 1008) 56.5 % LYMPHOCYTES (test code = 1010) 35.5 % MONOCYTES (test code = 1011) 6.4 % EOSINOPHILS (test code = 1012) 1.1 % BASOPHILS (test code = 1013) 0.3 % IMMATURE GRANULOCYTES (test 0.2 % code = 1036) NUCLEATED RBCS (test code = 0.0 /100WBC'S 1065) PLATELET COUNT (test code = 373 K/UL 1015) ABSOLUTE NEUTROPHILS (test code 3.56 K/UL = 1066) ABSOLUTE LYMPHOCYTES (test code 2.23 K/UL = 1067) ABSOLUTE MONOCYTES (test code = 0.40 K/UL 1068) ABSOLUTE EOSINOPHILS (test code 0.07 K/UL = 1040) ABSOLUTE BASOPHILS (test code = 0.02 K/UL 1069) ABS IMMATURE GRANULOCYTES (test 0.01 K/UL code = 1020) ABS NUCLEATED RBCS (test code = 0.00 K/UL 72261) CBC W/AUTO [id number] 00:00:00 Test Item Value Reference Range Interpretation Comments WBC (test code = 1001) 6.3 K/UL RBC (test code = 1002) 4.42 M/UL HEMOGLOBIN (test code = 1003) 13.4 G/DL HEMATOCRIT (test code = 1004) 38.6 % MCV (test code = 1005) 87.3 fL MCH (test code = 1006) 30.3 PG MCHC (test code = 1007) 34.7 G/DL RDW (test code = 1038) 13.0 % NEUTROPHILS (test code = 1008) 56.5 % LYMPHOCYTES (test code = 1010) 35.5 % MONOCYTES (test code = 1011) 6.4 % EOSINOPHILS (test code = 1012) 1.1 % BASOPHILS (test code = 1013) 0.3 % IMMATURE GRANULOCYTES (test 0.2 % code = 1036) NUCLEATED RBCS (test code = 0.0 /100WBC'S 1065) PLATELET COUNT (test code = 373 K/UL 1015) ABSOLUTE NEUTROPHILS (test code 3.56 K/UL = 1066) ABSOLUTE LYMPHOCYTES (test code 2.23 K/UL = 1067) ABSOLUTE MONOCYTES (test code = 0.40 K/UL 1068) ABSOLUTE EOSINOPHILS (test code 0.07 K/UL = 1040) ABSOLUTE BASOPHILS (test code = 0.02 K/UL 1069) ABS IMMATURE GRANULOCYTES (test 0.01 K/UL code = 1020) ABS NUCLEATED RBCS (test code = 0.00 K/UL 32462) HEMOGLOBIN [id number] 00:00:00 Test Item Value Reference Range Interpretation Comments HEMOGLOBIN A1c (test code = 58054) 13.7 % HEMOGLOBIN [id number] 00:00:00 Test Item Value Reference Range Interpretation Comments HEMOGLOBIN A1c (test code = 57759) 13.7 % HEMOGLOBIN [id number] 00:00:00 Test Item Value Reference Range Interpretation Comments HEMOGLOBIN A1c (test code = 86764) 13.7 % CBC W/AUTO [id number] 00:00:00 Test Item Value Reference Range Interpretation Comments WBC (test code = 1001) 6.3 K/UL RBC (test code = 1002) 4.42 M/UL HEMOGLOBIN (test code = 1003) 13.4 G/DL HEMATOCRIT (test code = 1004) 38.6 % MCV (test code = 1005) 87.3 fL MCH (test code = 1006) 30.3 PG MCHC (test code = 1007) 34.7 G/DL RDW (test code = 1038) 13.0 % NEUTROPHILS (test code = 1008) 56.5 % LYMPHOCYTES (test code = 1010) 35.5 % MONOCYTES (test code = 1011) 6.4 % EOSINOPHILS (test code = 1012) 1.1 % BASOPHILS (test code = 1013) 0.3 % IMMATURE GRANULOCYTES (test 0.2 % code = 1036) NUCLEATED RBCS (test code = 0.0 /100WBC'S 1065) PLATELET COUNT (test code = 373 K/UL 1015) ABSOLUTE NEUTROPHILS (test code 3.56 K/UL = 1066) ABSOLUTE LYMPHOCYTES (test code 2.23 K/UL = 1067) ABSOLUTE MONOCYTES (test code = 0.40 K/UL 1068) ABSOLUTE EOSINOPHILS (test code 0.07 K/UL = 1040) ABSOLUTE BASOPHILS (test code = 0.02 K/UL 1069) ABS IMMATURE GRANULOCYTES (test 0.01 K/UL code = 1020) ABS NUCLEATED RBCS (test code = 0.00 K/UL 05835) CBC W/AUTO [id number] 00:00:00 Test Item Value Reference Range Interpretation Comments WBC (test code = 1001) 6.3 K/UL RBC (test code = 1002) 4.42 M/UL HEMOGLOBIN (test code = 1003) 13.4 G/DL HEMATOCRIT (test code = 1004) 38.6 % MCV (test code = 1005) 87.3 fL MCH (test code = 1006) 30.3 PG MCHC (test code = 1007) 34.7 G/DL RDW (test code = 1038) 13.0 % NEUTROPHILS (test code = 1008) 56.5 % LYMPHOCYTES (test code = 1010) 35.5 % MONOCYTES (test code = 1011) 6.4 % EOSINOPHILS (test code = 1012) 1.1 % BASOPHILS (test code = 1013) 0.3 % IMMATURE GRANULOCYTES (test 0.2 % code = 1036) NUCLEATED RBCS (test code = 0.0 /100WBC'S 1065) PLATELET COUNT (test code = 373 K/UL 1015) ABSOLUTE NEUTROPHILS (test code 3.56 K/UL = 1066) ABSOLUTE LYMPHOCYTES (test code 2.23 K/UL = 1067) ABSOLUTE MONOCYTES (test code = 0.40 K/UL 1068) ABSOLUTE EOSINOPHILS (test code 0.07 K/UL = 1040) ABSOLUTE BASOPHILS (test code = 0.02 K/UL 1069) ABS IMMATURE GRANULOCYTES (test 0.01 K/UL code = 1020) ABS NUCLEATED RBCS (test code = 0.00 K/UL 87418) CBC W/AUTO [id number] 00:00:00 Test Item Value Reference Range Interpretation Comments WBC (test code = 1001) 6.3 K/UL RBC (test code = 1002) 4.42 M/UL HEMOGLOBIN (test code = 1003) 13.4 G/DL HEMATOCRIT (test code = 1004) 38.6 % MCV (test code = 1005) 87.3 fL MCH (test code = 1006) 30.3 PG MCHC (test code = 1007) 34.7 G/DL RDW (test code = 1038) 13.0 % NEUTROPHILS (test code = 1008) 56.5 % LYMPHOCYTES (test code = 1010) 35.5 % MONOCYTES (test code = 1011) 6.4 % EOSINOPHILS (test code = 1012) 1.1 % BASOPHILS (test code = 1013) 0.3 % IMMATURE GRANULOCYTES (test 0.2 % code = 1036) NUCLEATED RBCS (test code = 0.0 /100WBC'S 1065) PLATELET COUNT (test code = 373 K/UL 1015) ABSOLUTE NEUTROPHILS (test code 3.56 K/UL = 1066) ABSOLUTE LYMPHOCYTES (test code 2.23 K/UL = 1067) ABSOLUTE MONOCYTES (test code = 0.40 K/UL 1068) ABSOLUTE EOSINOPHILS (test code 0.07 K/UL = 1040) ABSOLUTE BASOPHILS (test code = 0.02 K/UL 1069) ABS IMMATURE GRANULOCYTES (test 0.01 K/UL code = 1020) ABS NUCLEATED RBCS (test code = 0.00 K/UL 14144) HEMOGLOBIN [id number] 00:00:00 Test Item Value Reference Range Interpretation Comments HEMOGLOBIN A1c (test code = 94516) 13.7 % HEMOGLOBIN [id number] 00:00:00 Test Item Value Reference Range Interpretation Comments HEMOGLOBIN A1c (test code = 30193) 13.7 % HEMOGLOBIN [id number] 00:00:00 Test Item Value Reference Range Interpretation Comments HEMOGLOBIN A1c (test code = 16885) 13.7 % CBC W/AUTO [id number] 00:00:00 Test Item Value Reference Range Interpretation Comments WBC (test code = 1001) 6.3 K/UL RBC (test code = 1002) 4.42 M/UL HEMOGLOBIN (test code = 1003) 13.4 G/DL HEMATOCRIT (test code = 1004) 38.6 % MCV (test code = 1005) 87.3 fL MCH (test code = 1006) 30.3 PG MCHC (test code = 1007) 34.7 G/DL RDW (test code = 1038) 13.0 % NEUTROPHILS (test code = 1008) 56.5 % LYMPHOCYTES (test code = 1010) 35.5 % MONOCYTES (test code = 1011) 6.4 % EOSINOPHILS (test code = 1012) 1.1 % BASOPHILS (test code = 1013) 0.3 % IMMATURE GRANULOCYTES (test 0.2 % code = 1036) NUCLEATED RBCS (test code = 0.0 /100WBC'S 1065) PLATELET COUNT (test code = 373 K/UL 1015) ABSOLUTE NEUTROPHILS (test code 3.56 K/UL = 1066) ABSOLUTE LYMPHOCYTES (test code 2.23 K/UL = 1067) ABSOLUTE MONOCYTES (test code = 0.40 K/UL 1068) ABSOLUTE EOSINOPHILS (test code 0.07 K/UL = 1040) ABSOLUTE BASOPHILS (test code = 0.02 K/UL 1069) ABS IMMATURE GRANULOCYTES (test 0.01 K/UL code = 1020) ABS NUCLEATED RBCS (test code = 0.00 K/UL 06343) CBC W/AUTO [id number] 00:00:00 Test Item Value Reference Range Interpretation Comments WBC (test code = 1001) 6.3 K/UL RBC (test code = 1002) 4.42 M/UL HEMOGLOBIN (test code = 1003) 13.4 G/DL HEMATOCRIT (test code = 1004) 38.6 % MCV (test code = 1005) 87.3 fL MCH (test code = 1006) 30.3 PG MCHC (test code = 1007) 34.7 G/DL RDW (test code = 1038) 13.0 % NEUTROPHILS (test code = 1008) 56.5 % LYMPHOCYTES (test code = 1010) 35.5 % MONOCYTES (test code = 1011) 6.4 % EOSINOPHILS (test code = 1012) 1.1 % BASOPHILS (test code = 1013) 0.3 % IMMATURE GRANULOCYTES (test 0.2 % code = 1036) NUCLEATED RBCS (test code = 0.0 /100WBC'S 1065) PLATELET COUNT (test code = 373 K/UL 1015) ABSOLUTE NEUTROPHILS (test code 3.56 K/UL = 1066) ABSOLUTE LYMPHOCYTES (test code 2.23 K/UL = 1067) ABSOLUTE MONOCYTES (test code = 0.40 K/UL 1068) ABSOLUTE EOSINOPHILS (test code 0.07 K/UL = 1040) ABSOLUTE BASOPHILS (test code = 0.02 K/UL 1069) ABS IMMATURE GRANULOCYTES (test 0.01 K/UL code = 1020) ABS NUCLEATED RBCS (test code = 0.00 K/UL 06717) HEMOGLOBIN [id number] 00:00:00 Test Item Value Reference Range Interpretation Comments HEMOGLOBIN A1c (test code = 94202) 13.7 % HEMOGLOBIN [id number] 00:00:00 Test Item Value Reference Range Interpretation Comments HEMOGLOBIN A1c (test code = 98789) 13.7 % POCT GLUCOSE (AUTOMATED)2021-01-21 22:11:01 Test Item Value Reference Range Interpretation Comments POCT GLU (test code = 0375769770) 331 mg/dL 70-110 H Lab Interpretation (test code = Abnormal 13371-0) [facility] CULTURE [id number] 22:01:46 Test Item Value Reference Range Interpretation Comments Blood Culture-Aerobic No organisms No growth Previo us (test code = 84900-1) isolated prelim inary verified result was Culture In Progress on 01/16/2021 [facility] [address] [facility] verified result was No growth a t 24 hours on 01/17/2021 at [address] [facility] verified result was No growth a t 48 hours on 01/18/2021 at 170 CDTPrevi s preliminary verified result was No growth a t 72 hours on 01/19/2021 at 1701 CDT Blood No organisms No growth Previous Culture-Anaerobic isolated preliminar y (test code = 49152-4) verifi ed result was Culture In Progress on 01/16/2021 at [address] [facility] verified result was No growth a t 24 hours on 01/17/2021 at 1701 CDTPrevi s preliminary verified result was No growth a t 48 hours on 01/18/2021 at 1701 CDTPreviou s preliminary verified result was No growth a t 72 hours on 01/19/2021 at 1701 CDT Lab Interpretation Normal (test code = 58783-8) [facility] CULTURE [id number] 22:01:46 Test Item Value Reference Range Interpretation Comments Blood Culture-Aerobic No organisms No growth Previo us (test code = 76443-3) isolated prelim inary verified result was Culture In Progress on 01/16/2021 at 2000 CDTPreviou s preliminary verified result was No growth a t 24 hours on 01/17/2021 at 1701 CDTPreviou s preliminary verified result was No growth a t 48 hours on 01/18/2021 at 1701 CDTPreviou s preliminary verified result was No growth a t 72 hours on 01/19/2021 at 1701 CDT Blood No organisms No growth Previous Culture-Anaerobic isolated preliminar y (test code = 86566-0) verifi ed result was Culture In Progress on 01/16/2021 at 2000 CDTPreviou s preliminary verified result was No growth a t 24 hours on 01/17/2021 at 1701 CDTPreviou s preliminary verified result was No growth a t 48 hours on 01/18/2021 at 1701 CDTPreviou s preliminary verified result was No growth a t 72 hours on 01/19/2021 at 1701 CDT Lab Interpretation Normal (test code = 15331-9) [facility] GLUCOSE (AUTOMATED)2021-01-21 17:23:24 Test Item Value Reference Range Interpretation Comments POCT GLU (test code = 9527113056) 341 mg/dL 70-110 H Lab Interpretation (test code = Abnormal 32277-6) [facility]. Sendout- Bartonella henselae IgM titer 2021-01-21 16:32:22 Test Item Value Reference Range Interpretation Comments Miscellaneous Test (test See scanned report code = 0654053955) Performing Lab (test code ARUP = 8342616078) [facility]. Sendout- Bartonella henselae IgG titer 2021-01-21 16:30:46 Test Item Value Reference Range Interpretation Comments Miscellaneous Test (test See scanned report code = 0620950664) Performing Lab (test code ARUP = 1222151264) [facility] VIRUS ANTIBODY, [id number] 14:51:19 Test Item Value Reference Range Interpretation Comments West Nile IgM (test See_Comment INTERPRE TIVE INFORMATION: code = 81075-3) West Nile Vi joanne Ab, IgM by EAMON, Serum 0. 89 IV or less ...... Negative - No significant lev el ? of We st Nile virus IgM antibody ? detected. 0.90-1.10 IV ......... Equiv ocal - Questionable pr esence ? o f West Nile virus IgM antib josh ? det ected. Repeat testing in ? 10-14 days may be helpful.1.11 IV or greater ... Positive - Presence of IgM ? antibody to Brad t Nile virus ? detected, suggestive of c urrent ? o r recent infection. This test is intended to be used as a semi-quantitati ve means of detecting West Nile virus-specific IgM in serum samples in psychiatric h there is a clinical suspic ion of West Nile virus infe ction. This test should not be used solely for craig titative purposes, nor s hould the results be used without correlation to clinical history or othe r data. Because other m embers of the Flaviviridae fa [facility], such as [facility].Herbie enceph alitis virus, show extensive cross-reactivit y with West Nile virus, ser ologic testing specific for th nadia species should be consi dered. Seroconversion between acute and convalescen t sera is considered stro ng evidence of current or rece nt infection. The best eviden ce for infection is a significant change on two a ppropriately timed specimens , where both tests are done in the same laboratory at t he same time.Performed By: [facility] [place] [address] [id number] Director: Almita Harris MD [Automated mess age] The system which ge nerated this result transmit debbi reference range: <=0.89 I V. The reference range was not used to interpret th is result as normal/abnormal . [facility] GLUCOSE (AUTOMATED)2021-01-21 13:13:46 Test Item Value Reference Range Interpretation Comments POCT GLU (test code = 3884769260) 198 mg/dL 70-110 H Lab Interpretation (test code = Abnormal 82552-2) [facility] GLUCOSE (AUTOMATED)2021-01-21 08:13:32 Test Item Value Reference Range Interpretation Comments POCT GLU (test code = 2945137211) 120 mg/dL 70-110 H Lab Interpretation (test code = Abnormal 26238-3) [facility] GLUCOSE (AUTOMATED)2021-01-21 01:26:21 Test Item Value Reference Range Interpretation Comments POCT GLU (test code = 7703867634) 323 mg/dL 70-110 H Lab Interpretation (test code = Abnormal 01424-7) [facility] GLUCOSE (AUTOMATED)2021-01-20 21:55:43 Test Item Value Reference Range Interpretation Comments POCT GLU (test code = 9941318945) 260 mg/dL 70-110 H Lab Interpretation (test code = Abnormal 94335-3) [facility]-TB [id number] 17:24:36 Test Item Value Reference Range Interpretation Comments Nil (test code = IU/mL 15013-8) TB1 minus Nil (test IU/mL code = 85428-4) TB2 minus Nil (test IU/mL code = 6558357482) Mitogen minus Nil >10.000 IU/mL (test code = 55621-9) QFT Gold Plus Negative Negative Result (test code = 66147-6) ILIANA (test code = The QuantiFERON? TB Gold ILIANA) Plus (in Tube) assay is intended for use as an aid in diagnosis of TB infection. A qualitative result (i.e., Negative, Positive, or Indeterminate) is based on interpretation of the four values, Nil, TB1 minus Nil, TB2 minus Nil, and Mitogen minus Nil. ?The Nil value represents nonspecific reactivity produced by the patient specimen. ?The TB1 minus Nil value indicates the interferon-gamma response of CD4+ T lymphocytes, specifically stimulated by the TB1 antigens. ?The TB2 minus Nil value indicates interferon-gamma response of both CD4+ and CD8+ T lymphocytes, stimulated by TB2 antigens. ?The Mitogen minus Nil value serves as the positive control, demonstrating the successful responsiveness of the T lymphocytes in patient specimen. A negative result suggests that M. tuberculosis infection is unlikely. ?However, in patients with high suspicion of exposure, a negative test should be repeated on a new sample. A positive result indicates an interferon-gamma response to M. tuberculosis antigens, suggesting infection with M. tuberculosis. Positive results in patients at low-risk for tuberculosis should be interpreted with caution and repeat testing on a new sample is advised. ?If repeat testing is positive, treatment may be indicated. ?Consult Infectious Disease Services for further recommendations. False positive results may occur in patients with prior infection with M. marinum, M. szulgai, or M. kansasii. For an indeterminate result, the likelihood of determining infection with M. tuberculosis cannot be determined. ?If clinically indicated, repeat testing on a new sample is advised. For further information, refer to http://www.cdc.gov/mmwr/pd f/rr/pm9818.pdf and https://doi.org/10.1093/ci d/jrb124. [facility] GLUCOSE (AUTOMATED)2021-01-20 17:09:03 Test Item Value Reference Range Interpretation Comments POCT GLU (test code = 4028979649) 246 mg/dL 70-110 H Lab Interpretation (test code = Abnormal 28863-4) [facility] GLUCOSE (AUTOMATED)2021-01-20 12:57:35 Test Item Value Reference Range Interpretation Comments POCT GLU (test code = 9756182891) 158 mg/dL 70-110 H Lab Interpretation (test code = Abnormal 36916-5) [facility] GLUCOSE (AUTOMATED)2021-01-20 01:33:35 Test Item Value Reference Range Interpretation Comments POCT GLU (test code = 2721791331) 249 mg/dL 70-110 H Lab Interpretation (test code = Abnormal 94195-2) [facility] GLUCOSE (AUTOMATED)2021-01-19 23:16:52 Test Item Value Reference Range Interpretation Comments POCT GLU (test code = 4515241871) 216 mg/dL 70-110 H Lab Interpretation (test code = Abnormal 20330-2) [facility] GLUCOSE (AUTOMATED)2021-01-19 21:48:55 Test Item Value Reference Range Interpretation Comments POCT GLU (test code = 8281914166) 249 mg/dL 70-110 H Lab Interpretation (test code = Abnormal 76191-3) [facility] GLUCOSE (AUTOMATED)2021-01-19 18:32:39 Test Item Value Reference Range Interpretation Comments POCT GLU (test code = 1848648175) 228 mg/dL 70-110 H Lab Interpretation (test code = Abnormal 02867-0) [facility] GLUCOSE (AUTOMATED)2021-01-19 15:30:58 Test Item Value Reference Range Interpretation Comments POCT GLU (test code = 5987328424) 153 mg/dL 70-110 H Lab Interpretation (test code = Abnormal 54767-8) [facility] DallasSEDIMENTATION [id number] 11:04:19 Test Item Value Reference Range Interpretation Comments ESR (test code = See_Comment H [Automated message] 7271831735) The system [employer] h generated this result transmitted ref erence range: 0 - 20 m m/HR. The reference r rizwan was not used to interpret this result as normal/abnor mal. Lab Interpretation (test Abnormal code = 80901-2) [facility] WITH [id number] 10:49:13 Test Item Value Reference Range Interpretation Comments WBC (test code = See_Comment L [Automated 6690-2) message] The sy stem which generated this result transmitted reference range : 4.30 - 11.10 10*3/?L. The reference range was not used to interpret this result as normal/abnormal . RBC (test code = See_Comment [Automated 789-8) message] The sy stem which generated this result transmitted reference range : 3.93 - 5.25 10*6/?L. The reference range was not used to interpret this result as normal/abnormal . HGB (test code = 12.8 g/dL 11.6-15.0 718-7) HCT (test code = 38.1 % 35.7-45.2 4544-3) MCV (test code = 88.0 fL 80.6-95.5 787-2) MCH (test code = 29.6 pg 25.9-32.8 785-6) MCHC (test code = 33.6 g/dL 31.6-35.1 786-4) RDW-SD (test code = 40.8 fL 39.0-49.9 32553-7) RDW-CV (test code = 12.7 % 12.0-15.5 788-0) PLT (test code = See_Comment [Automated 777-3) message] The sy stem which generated this result transmitted reference range : 166 - 358 10*3/ ?L. The reference r rizwan was not used to interpret this result as normal/abnormal . MPV (test code = 9.2 fL 9.5-12.9 L 04196-6) NRBC/100 WBC (test See_Comment [Automat ed code = 1255002642) message] The system which generated this result transmitted reference range : 0.0 - 10.0 /100 WBCs. The refer ence range was not u sed to interpret th is result as normal/abnormal . NRBC x10^3 (test code <0.01 See_Comment [Auto mated = 2111871457) message] The s ystem which generated this result transmitted reference range : 10*3/?L. The reference range was not used to interpret this result as normal/abnormal . GRAN MAT (NEUT) % 36.8 % (test code = 770-8) IMM GRAN % (test code 0.30 % = 6546424508) LYMPH % (test code = 48.0 % 736-9) MONO % (test code = 11.9 % 5905-5) EOS % (test code = 2.2 % 713-8) BASO % (test code = 0.8 % 706-2) GRAN MAT x10^3(ANC) 1.36 10*3/uL 1.88-7.09 L (test code = 4286334027) IMM GRAN x10^3 (test <0.03 0.00-0.06 code = 3840588486) LYMPH x10^3 (test code 1.77 10*3/uL 1.32-3.29 = 731-0) MONO x10^3 (test code 0.44 10*3/uL 0.33-0.92 = 742-7) EOS x10^3 (test code = 0.08 10*3/uL 0.03-0.39 711-2) BASO x10^3 (test code 0.03 10*3/uL 0.01-0.07 = 704-7) Lab Interpretation Abnormal (test code = 04943-7) [facility] 10:36:09 Test Item Value Reference Range Interpretation Comments NA (test code = 138 mmol/L 135-145 2933632025) K (test code = 3.6 mmol/L 3.5-5.0 5509121897) CL (test code = 106 mmol/L 98-108 9145973002) CO2 TOTAL (test code = 27 mmol/L 23-31 2586749906) AGAP (test code = 2-16 9127324765) BUN (test code = 14 mg/dL 7-23 0251867171) GLUCOSE (test code = 146 mg/dL 70-110 H 4723914554) CREATININE (test code = 0.53 mg/dL 0.50-1.04 5892643399) TOTAL BILI (test code = 0.5 mg/dL 0.1-1.0 1082634121) CALCIUM (test code = 8.7 mg/dL 8.6-10.6 8133328277) T PROTEIN (test code = 5.7 g/dL 6.3-8.2 L 1786600984) ALBUMIN (test code = 3.2 g/dL 3.5-5.0 L 5213270519) ALK PHOS (test code = 81 U/L 34-122 2245790242) ALTv (test code = 19 U/L 5-35 1742-6) AST(SGOT) (test code = 32 U/L 13-40 3765768700) eGFR (test code = mL/min/1.73m2 6997334548) ILIANA (test code = ILIANA) Association of Glomerular Filtration Rate (GFR) and Staging of Kidney Disease* + --+ --+ ------+| GFR (mL/min/1.73 m2) ?| With Kidney Damage ?| ?Without Kidney Damage+ --------+ --------+ +| ?>90 ?| ?Stage one ?| ? Normal ?+ ---+ ---+ -------+| ?60-89 ?| ?Stage two ?| ? Decreased GFR ? + --+ --+ ------+| ?30-59 ?| ?Stage three ?| ? Stage three ? + --+ --+ ------+| ?15-29 ?| ?Stage four ? | ? Stage four ?+ ---+ ---+ -------+| ?<15 (or dialysis) ? ?| ?Stage five ? | ? Stage five ?+ ---+ ---+ -------+ *Each stage assumes the associated GFR level has been in effect for at least three months. ?Stages 1 to 5, with or without kidney disease, indicate chronic kidney disease. Notes: Determination of stages one and two (with eGFR >59mL/min/1.73 m2) requires estimation of kidney damage for at least three months as defined by structural or functional abnormalities of the kidney, manifested by either:Pathological abnormalities or Markers of kidney damage (including abnormalities in the composition of the blood or urine or abnormalities in imaging tests). Lab Interpretation Abnormal (test code = 72338-0) [facility] GLUCOSE (AUTOMATED)2021-01-19 03:26:16 Test Item Value Reference Range Interpretation Comments POCT GLU (test code = 2439385227) 231 mg/dL 70-110 H Lab Interpretation (test code = Abnormal 83145-4) [facility] DallasHBC ANTIBODY (IGM & IGG)2021-01-19 00:44:53 Test Item Value Reference Range Interpretation Comments HBC (test code = 2233327573) Negative HBC Semi-Quantitative (test code = 6703355992) [facility] GLUCOSE (AUTOMATED)2021-01-18 22:18:56 Test Item Value Reference Range Interpretation Comments POCT GLU (test code = 4326787893) 189 mg/dL 70-110 H Lab Interpretation (test code = Abnormal 13289-7) [facility] GLUCOSE (AUTOMATED)2021-01-18 20:39:09 Test Item Value Reference Range Interpretation Comments POCT GLU (test code = 1869374364) 258 mg/dL 70-110 H Lab Interpretation (test code = Abnormal 24811-1) [facility] DallasRPR (QUANTITATIVE)2021-01-18 18:02:36 Test Item Value Reference Range Interpretation Comments RPR (Quantitative) (test code = Nonreactive Nonreactive 37103-6) Lab Interpretation (test code = Normal 17687-0) [facility] GLUCOSE (AUTOMATED)2021-01-18 16:31:00 Test Item Value Reference Range Interpretation Comments POCT GLU (test code = 3109322061) 279 mg/dL 70-110 H Lab Interpretation (test code = Abnormal 19631-0) [facility] GLUCOSE (AUTOMATED)2021-01-18 12:46:23 Test Item Value Reference Range Interpretation Comments POCT GLU (test code = 1423130950) 308 mg/dL 70-110 H Lab Interpretation (test code = Abnormal 49461-1) [facility] GLUCOSE (AUTOMATED)2021-01-18 05:07:35 Test Item Value Reference Range Interpretation Comments POCT GLU (test code = 6637096455) 287 mg/dL 70-110 H Lab Interpretation (test code = Abnormal 01461-3) [facility] DallasHCV [id number] 02:55:48 Test Item Value Reference Range Interpretation Comments HCV Ab (test code = 97718-0) Negative HCV Semi-Quantitative (test code = 29907-7) [facility] DallasHI 1/2 AG-AB WITH [id number] 02:32:01 Test Item Value Reference Range Interpretation Comments HIV Negative Negative Semi-quantitative (test code = 40964-1) ILIANA (test code = Non-reactive for HIV-1 ILIANA) antigen and HIV-1/HIV-2 antibodies. ?No laboratory evidence of HIV infection. ?Repeat in 2-4 weeks if acute HIV infection is suspected. [facility] DallasHEPATITIS B SURFACE [id number] 01:38:56 Test Item Value Reference Range Interpretation Comments HBsAB (test code = Positive 1746203846) HBsAb mIU/mL Semi-Quantitative (test code = 2979325007) ILIANA (test code = Interpretation: ILIANA) ?Hepatitis B Surface Antibody ? Negative - Patient is considered to be not immune to infection with HBV. ? ? Positive - Anti-HBs detected at greater than or equal to 12 mIU/mL. ?Patient is considered to be immune to infection with HBV. ? [facility] GLUCOSE (AUTOMATED)2021-01-18 01:27:38 Test Item Value Reference Range Interpretation Comments POCT GLU (test code = 6613780164) 357 mg/dL 70-110 H Lab Interpretation (test code = Abnormal 20927-3) [facility] B SURFACE [id number] 01:21:37 Test Item Value Reference Range Interpretation Comments HBsAg Semi-Quantitative (test code = Negative Negative 5195-3) [facility] GLUCOSE (AUTOMATED)2021-01-17 22:38:13 Test Item Value Reference Range Interpretation Comments POCT GLU (test code = 5986083029) 256 mg/dL 70-110 H Lab Interpretation (test code = Abnormal 86539-3) [facility] DallasC-REACTIVE [id number] 19:57:25 Test Item Value Reference Range Interpretation Comments CRP (test code = 8691674046) 2.6 mg/dL <0.8 H Lab Interpretation (test code = Abnormal 58816-8) [facility] DallasPROCALCITONIN2021-10-21 17:01:51 Test Item Value Reference Range Interpretation Comments Procalcitonin (test 0.20 ng/mL <0.07 H code = 2830306345) ILIANA (test code = ILIANA) INTERPRETATION OF PROCALCITONIN RESULTS IN ADULTS >= 18 YEARS OF AGE Initiation and discontinuation of antibiotics on patients with suspected or confirmed Lower Respiratory Tract Infection in Adults >= 18 years of age. + +-------- --------+ + -----+|Procalcitonin |Interpretation ?|Antibiotic ? ? |Considerations ? |ng/mL ? | ?|recommendation | ? + +-------- --------+ + -----+| <0.1 ? | Bacterial ? ? ?| Strongly ? ? ?| ? | ?| infection very | discouraged ? | Overruling: ? | ?| unlikely ? ? ? | ? | ? Clinically unstable ? ? ? + +-------- --------+ + ? High risk for adverse ? ? | <0.25 ?| Bacterial ? ? ?| Discouraged ? | ? outcome ? | ?| infection ? ? ?| ? | ? SEE IMPORTANT NOTE ?| ?| unlikely ? ? ? | ? | ? + +-------- --------+ + -----+| >=0.25 ? ? ? | Bacterial ? ? ?| Encouraged ? ?| ? | ?| infection ? ? ?| ? | ? | ?| likely ? | ? | Consider treatment failure ?+ +------- ---------+ -+ if levels does not decrease | >0.5 ? | Bacterial ? ? ?| Strongly ? ? ?| appropriately ? | ?| infection very | encouraged ? ?| ? | ?| likely ? | ? | ? + +-------- --------+ + -----+ Discontinuation of antibiotics in high-acuity patients with suspected or confirmed sepsis in Adults >= 18 years of age. + +-------- --------+ + -----+|Procalcitonin |Interpretation ?|Antibiotic ? ? |Considerations ? |ng/mL ? | ?|recommendation | ? + +-------- --------+ + -----+| <0.25 ?| Bacterial ? ? ?| Strongly ? ? ?| ? | ?| infection very | discouraged ? | Overruling: ? | ?| unlikely ? ? ? | ? | ? Clinically unstable ? ? ? + +-------- --------+ + ? High risk for adverse ? ? | <0.5 or drop | Bacterial ? ? ?| Discouraged ? | ? outcome ? | >80% from ? ?| infection ? ? ?| ? | ? SEE IMPORTANT NOTE ?| highest PCT ?| unlikely ? ? ? | ? | ? | level ?| ?| ? | ? + +-------- --------+ + -----+| >=0.5 ?| Bacterial ? ? ?| Encouraged ? ?| ? | ?| infection ? ? ?| ? | ? | ?| likely ? | ? | Consider treatment failure ?+ +------- ---------+ -+ if levels does not decrease | >1.0 ? | Bacterial ? ? ?| Strongly ? ? ?| appropriately ? | ?| infection very | encouraged ? ?| ? | ?| likely ? | ? | ? + +-------- --------+ + -----+ Percentage of drop of Procalcitonin calculation for Discontinuation of antibiotics in high-acuity patients with suspected or confirmed sepsis in Adults >= 18 years of age. ? Procalcitonin highest{}-Procalcitonin current{}Delta Procalcitonin = x100% ? Procalcitonin current {} IMPORTANT NOTE: Procalcitonin may be elevated without bacterial infection by physiologic stress related to trauma, talavera, chronic dialysis, metastatic cancer, surgery in the past seven days, malaria, some fungal infections, and some forms of vasculitis. The interpretation algorithm may not apply to patients with immunosuppression (equivalent of >10 mg of prednisone daily), HIV with CD4 cell count < 350 cells/mm3, active malignancy on systemic chemotherapy, solid organ transplant or hematopoietic stem cell transplantation, or hospital acquired pneumonia. Additionally, some clinical trials of procalcitonin have excluded patients with shock requiring vasopressor use, acute respiratory failure requiring mechanical ventilation, or those with known lung abscess/empyema. For further information please refer to:[email or web address] Lab Interpretation Abnormal (test code = 20525-9) [facility] GLUCOSE (AUTOMATED)2021-01-17 16:52:15 Test Item Value Reference Range Interpretation Comments POCT GLU (test code = 7515387145) 349 mg/dL 70-110 H Lab Interpretation (test code = Abnormal 40893-9) [facility] GLUCOSE (AUTOMATED)2021-01-17 13:19:54 Test Item Value Reference Range Interpretation Comments POCT GLU (test code = 2041248422) 376 mg/dL 70-110 H Lab Interpretation (test code = Abnormal 39687-0) [facility] WITHOUT [id number] 09:45:13 Test Item Value Reference Range Interpretation Comments WBC (test code = 6690-2) See_Comment [A utomated message] The system [employer] generated this result transmit debbi reference range : 4.30 - 11.10 10*3/?L. The reference range was not used to interpret this result as normal/abnormal . RBC (test code = 789-8) See_Comment [Au tomated message] The system [employer] generated this result transmit debbi reference range : 3.93 - 5.25 10* 6/?L. The reference r rizwan was not used to interpret this result as normal/abnormal . HGB (test code = 718-7) 12.7 g/dL 11.6-15.0 HCT (test code = 4544-3) 38.6 % 35.7-45.2 MCH (test code = 785-6) 28.8 pg 25.9-32.8 MCV (test code = 787-2) 87.5 fL 80.6-95.5 MCHC (test code = 786-4) 32.9 g/dL 31.6-35.1 PLT (test code = 777-3) See_Comment [Au tomated message] The system [employer] generated this result transmit debbi reference range : 166 - 358 10*3/?L. The reference range was not used to interpret this result as normal/abnormal . MPV (test code = 9.1 fL 9.5-12.9 L 73759-8) RDW-CV (test code = 12.5 % 12.0-15.5 788-0) RDW-SD (test code = 40.0 fL 39.0-49.9 66482-1) NRBC x10^3 (test code = <0.01 See_Comment [Au tomated message] [id number]) The system [employer] generated this result transmit debbi reference range : 10*3/?L. The reference range was not used to interpret this result as normal/abnormal . NRBC/100 WBC (test code See_Comment [Au tomated message] = 4744349247) The system [facility] generated this result transmit debbi reference range : 0.0 - 10.0 /100 WBC s. The reference r rizwan was not used to interpret this result as normal/abnormal . IPF % (test code = 5457865642) Lab Interpretation (test Abnormal code = 96248-9) [facility] [id number] 04:48:35 Test Item Value Reference Range Interpretation Comments ESR (test code = See_Comment H [Automated message] [id number]) The system [employer] generated this result transmitted ref erence range: 0 - 20 m m/HR. The reference r rizwan was not used to interpret this result as normal/abnor mal. Lab Interpretation (test Abnormal code = 88008-5) [facility] [place]GLYCOSYLATED HEMOGLOBIN (A1C)2021-01-17 03:06:17 Test Item Value Reference Range Interpretation Comments HGB A1C (test code = >14.0 4.0-5.7 H 4548-4) ILIANA (test code = ILIANA) Reference RangesNormal: <5.7%Prediabetes: 5.7 - 6.4%Diabetes: > 6.5% Lab Interpretation (test Abnormal code = 28291-1) [facility] [place]CBC WITH [id number] 20:32:52 Test Item Value Reference Range Interpretation Comments WBC (test code = See_Comment [Automated 2390-2) message] The sy stem which generated this result transmitted reference range : 4.30 - 11.10 10*3/?L. The reference range was not used to interpret this result as normal/abnormal . RBC (test code = See_Comment [Automated 409-8) message] The sy stem which generated this result transmitted reference range : 3.93 - 5.25 10*6/?L. The reference range was not used to interpret this result as normal/abnormal . HGB (test code = 13.8 g/dL 11.6-15.0 718-7) HCT (test code = 40.9 % 35.7-45.2 4544-3) MCV (test code = 86.3 fL 80.6-95.5 787-2) MCH (test code = 29.1 pg 25.9-32.8 785-6) MCHC (test code = 33.7 g/dL 31.6-35.1 786-4) RDW-SD (test code = 38.7 fL 39.0-49.9 L 00234-4) RDW-CV (test code = 12.4 % 12.0-15.5 788-0) PLT (test code = See_Comment [Automated 777-3) message] The sy stem which generated this result transmitted reference range : 166 - 358 10*3/ ?L. The reference r rizwan was not used to interpret this result as normal/abnormal . MPV (test code = 10.7 fL 9.5-12.9 72490-6) IPF % (test code = 7.5 % 1.3-7.7 Platelet count [id number]) measured by fluorescence method. NRBC/100 WBC (test See_Comment [Automat ed code = 3324423699) message] The system which generated this result transmitted reference range : 0.0 - 10.0 /100 WBCs. The refer ence range was not u sed to interpret th is result as normal/abnormal . NRBC x10^3 (test code <0.01 See_Comment [Auto mated = [id number]) message] The s ystem which generated this result transmitted reference range : 10*3/?L. The reference range was not used to interpret this result as normal/abnormal . GRAN MAT (NEUT) % 81.5 % (test code = 770-8) IMM GRAN % (test code 0.50 % = 3969243980) LYMPH % (test code = 11.9 % 736-9) MONO % (test code = 5.4 % 5905-5) EOS % (test code = 0.3 % 713-8) BASO % (test code = 0.4 % 706-2) GRAN MAT x10^3(ANC) 6.29 10*3/uL 1.88-7.09 (test code = 8950052220) IMM GRAN x10^3 (test 0.04 10*3/uL 0.00-0.06 code = 8613436189) LYMPH x10^3 (test code 0.92 10*3/uL 1.32-3.29 L = 731-0) MONO x10^3 (test code 0.42 10*3/uL 0.33-0.92 = 742-7) EOS x10^3 (test code = <0.03 0.03-0.39 L 711-2) BASO x10^3 (test code 0.03 10*3/uL 0.01-0.07 = 704-7) BANDS (test code = Increased A 4041647813) Lab Interpretation Abnormal (test code = 63624-8) [facility] DallasPROTHROMBIN TIME / [id number] 20:28:05 Test Item Value Reference Range Interpretation Comments PROTIME PATIENT (test See_Comment [Auto mated message] code = 5964-2) The system [employer] generated this result transmitted ref erence range: 12.0 - 1 4.7 Seconds. The re ference range was not u sed to interpret this result as normal/abnor mal. INR (test code = 6301-6) Nor mal INR <1.1; Warfarin Therap eutic range 2.0 to 3. 0 or 2.5 to 3.5, dep ending upon the indica tions. Lab Interpretation (test Normal code = 78856-2) [facility] DallasTROPONIN [id number] 20:08:44 Test Item Value Reference Interpretation Comments Range TROPONIN I (test 0.002 ng/mL See_Comment [Automated code = 7787472149) message] The system which generated this result transmitted reference range : <=0.034. The reference range was not used to interpret this result as normal/abnormal . ILIANA (test code = Reference (Normal) ILIANA) Range (defined by the 99th percentile reference limit): <= 0.034 ng/mL Note: Cardiac troponin begins to rise 3-4 hours after the onset of ischemia. Repeat in 4-6 hours if the sample was drawn within 3-4 hours of the onset of the symptom and found normal. Diagnosis of myocardial injury is made with acute changes in cTn concentrations with at least one serial sample above the 99th percentile upper reference limit (URL), taken together with the patient's clinical presentation. Biotin has been reported to cause a negative bias, interpret results relative to patient's use of biotin. Lab Interpretation Normal (test code = 31423-7) [facility]. METABOLIC PANEL (13646)2021-01-16 19:57:01 Test Item Value Reference Range Interpretation Comments NA (test code = 132 mmol/L 135-145 L 4571929558) K (test code = 4.4 mmol/L 3.5-5.0 7000215108) CL (test code = 101 mmol/L 98-108 9362382197) CO2 TOTAL (test code = 20 mmol/L 23-31 L 3848560812) AGAP (test code = 2-16 5737795749) BUN (test code = 10 mg/dL 7-23 2536749823) GLUCOSE (test code = 310 mg/dL 70-110 H 1156642071) CREATININE (test code = 0.44 mg/dL 0.50-1.04 L 4680958270) TOTAL BILI (test code = 0.8 mg/dL 0.1-1.1 5320173447) CALCIUM (test code = 9.4 mg/dL 8.6-10.6 3387671736) T PROTEIN (test code = 7.3 g/dL 6.3-8.2 7536934738) ALBUMIN (test code = 4.5 g/dL 3.5-5.0 1677540259) ALK PHOS (test code = 106 U/L 34-122 5275704254) ALTv (test code = 15 U/L 5-35 1742-6) AST(SGOT) (test code = 35 U/L 13-40 7025394239) eGFR (test code = mL/min/1.73m2 6107407677) ILIANA (test code = ILIANA) Association of Glomerular Filtration Rate (GFR) and Staging of Kidney Disease* + --+ --+ ------+| GFR (mL/min/1.73 m2) ?| With Kidney Damage ?| ?Without Kidney Damage+ --------+ --------+ +| ?>90 ?| ?Stage one ?| ? Normal ?+ ---+ ---+ -------+| ?60-89 ?| ?Stage two ?| ? Decreased GFR ? + --+ --+ ------+| ?30-59 ?| ?Stage three ?| ? Stage three ? + --+ --+ ------+| ?15-29 ?| ?Stage four ? | ? Stage four ?+ ---+ ---+ -------+| ?<15 (or dialysis) ? ?| ?Stage five ? | ? Stage five ?+ ---+ ---+ -------+ *Each stage assumes the associated GFR level has been in effect for at least three months. ?Stages 1 to 5, with or without kidney disease, indicate chronic kidney disease. Notes: Determination of stages one and two (with eGFR >59mL/min/1.73 m2) requires estimation of kidney damage for at least three months as defined by structural or functional abnormalities of the kidney, manifested by either:Pathological abnormalities or Markers of kidney damage (including abnormalities in the composition of the blood or urine or abnormalities in imaging tests). Lab Interpretation Abnormal (test code = 47763-6) [facility] DallasLIPASE, [id number] 19:56:41 Test Item Value Reference Range Interpretation Comments LIPASE (test code = 5786773091) 85 U/L 0-220 Lab Interpretation (test code = Normal 19956-8) [facility]SARS-CoV-2 (COVID-19) by RT-PCR (HIGH RISK) 2020-11-13 00:00:00 Test Item Value Reference Range Interpretation Comments SARS-CoV-2 INTERPRETATION (test NEGATIVE code = 69004) SOURCE (test code = 49675) NOT SPECIFIED SARS-CoV-2 (COVID-19) by RT-PCR (HIGH RISK)2020-11-13 00:00:00 Test Item Value Reference Range Interpretation Comments SARS-CoV-2 INTERPRETATION (test NEGATIVE code = 44965) SOURCE (test code = 64030) NOT SPECIFIED SARS-CoV-2 (COVID-19) by RT-PCR (HIGH RISK)2020-11-13 00:00:00 Test Item Value Reference Range Interpretation Comments SARS-CoV-2 INTERPRETATION (test NEGATIVE code = 33300) SOURCE (test code = 71936) NOT SPECIFIED SARS-CoV-2 (COVID-19) by RT-PCR (HIGH RISK)2020-11-13 00:00:00 Test Item Value Reference Range Interpretation Comments SARS-CoV-2 INTERPRETATION (test NEGATIVE code = 73216) SOURCE (test code = 55187) NOT SPECIFIED SARS-CoV-2 (COVID-19) by RT-PCR (HIGH RISK)2020-11-13 00:00:00 Test Item Value Reference Range Interpretation Comments SARS-CoV-2 INTERPRETATION (test NEGATIVE code = 44890) SOURCE (test code = 85934) NOT SPECIFIED SARS-CoV-2 (COVID-19) by RT-PCR (HIGH RISK)2020-03-18 00:00:00 Test Item Value Reference Range Interpretation Comments SARS-CoV-2 INTERPRETATION (test NEGATIVE code = 24753) SOURCE (test code = 46491) NOT SPECIFIED SARS-CoV-2 (COVID-19) by RT-PCR (HIGH RISK)2020-03-18 00:00:00 Test Item Value Reference Range Interpretation Comments SARS-CoV-2 INTERPRETATION (test NEGATIVE code = 20957) SOURCE (test code = 48436) NOT SPECIFIED SARS-CoV-2 (COVID-19) by RT-PCR (HIGH RISK)2020-03-18 00:00:00 Test Item Value Reference Range Interpretation Comments SARS-CoV-2 INTERPRETATION (test NEGATIVE code = 28292) SOURCE (test code = 03027) NOT SPECIFIED SARS-CoV-2 (COVID-19) by RT-PCR (HIGH RISK)2020-03-18 00:00:00 Test Item Value Reference Range Interpretation Comments SARS-CoV-2 INTERPRETATION (test NEGATIVE code = 27237) SOURCE (test code = 31934) NOT SPECIFIED SARS-CoV-2 (COVID-19) by RT-PCR (HIGH RISK)2020-03-18 00:00:00 Test Item Value Reference Range Interpretation Comments SARS-CoV-2 INTERPRETATION (test NEGATIVE code = 95273) SOURCE (test code = 70875) NOT SPECIFIED HEMOGLOBIN [id number] 00:00:00 Test Item Value Reference Range Interpretation Comments HEMOGLOBIN A1c (test code = 94513) 12.2 % HEMOGLOBIN [id number] 00:00:00 Test Item Value Reference Range Interpretation Comments HEMOGLOBIN A1c (test code = 10130) 12.2 % HEMOGLOBIN [id number] 00:00:00 Test Item Value Reference Range Interpretation Comments HEMOGLOBIN A1c (test code = 47181) 12.2 % LIPID [id number] 00:00:00 Test Item Value Reference Range Interpretation Comments CHOLESTEROL (test code = 2210) 149 MG/DL TRIGLYCERIDES (test code = 2232) 350 MG/DL HDL CHOLESTEROL (test code = 2220) 38 MG/DL CALC LDL CHOL (test code = 2237) 69 MG/DL RISK RATIO LDL/HDL (test code = 1.82 RATIO 2238) LIPID [id number] 00:00:00 Test Item Value Reference Range Interpretation Comments CHOLESTEROL (test code = 2210) 149 MG/DL TRIGLYCERIDES (test code = 2232) 350 MG/DL HDL CHOLESTEROL (test code = 2220) 38 MG/DL CALC LDL CHOL (test code = 2237) 69 MG/DL RISK RATIO LDL/HDL (test code = 1.82 RATIO 2238) COMPREHENSIVE METABOLIC [id number] 00:00:00 Test Item Value Reference Range Interpretation Comments GLUCOSE (test code = 2217) 301 MG/DL BUN (test code = 2208) 13 MG/DL CREATININE (test code = 2214) 0.60 MG/DL eGFR AMER. (test code 122 ML/MIN/1.73 = 68014) eGFR NON- AMER. (test 106 ML/MIN/1.73 code = 37584) CALC BUN/CREAT (test code = 22 RATIO 2235) SODIUM (test code = 2231) 140 MEQ/L POTASSIUM (test code = 2228) 4.3 MEQ/L CHLORIDE (test code = 2215) 101 MEQ/L CARBON DIOXIDE (test code = 23 MEQ/L 220) CALCIUM (test code = 2209) 9.8 MG/DL PROTEIN, TOTAL (test code = 7.0 G/DL 2228) ALBUMIN (test code = 2201) 4.7 G/DL CALC GLOBULIN (test code = 2.3 G/DL 2240) CALC A/G RATIO (test code = 2.0 RATIO 2234) BILIRUBIN, TOTAL (test code = 0.2 MG/DL 2206) ALKALINE PHOSPHATASE (test 138 U/L code = 2204) AST (test code = 2218) 20 U/L ALT (test code = 2219) 15 U/L COMPREHENSIVE METABOLIC [id number] 00:00:00 Test Item Value Reference Range Interpretation Comments GLUCOSE (test code = 2217) 301 MG/DL BUN (test code = 2208) 13 MG/DL CREATININE (test code = 2214) 0.60 MG/DL eGFR AMER. (test code 122 ML/MIN/1.73 = 45423) eGFR NON- AMER. (test 106 ML/MIN/1.73 code = 51354) CALC BUN/CREAT (test code = 22 RATIO 2235) SODIUM (test code = 2231) 140 MEQ/L POTASSIUM (test code = 2228) 4.3 MEQ/L CHLORIDE (test code = 2215) 101 MEQ/L CARBON DIOXIDE (test code = 23 MEQ/L 220) CALCIUM (test code = 2209) 9.8 MG/DL PROTEIN, TOTAL (test code = 7.0 G/DL 2228) ALBUMIN (test code = 2201) 4.7 G/DL CALC GLOBULIN (test code = 2.3 G/DL 2240) CALC A/G RATIO (test code = 2.0 RATIO 2234) BILIRUBIN, TOTAL (test code = 0.2 MG/DL 2206) ALKALINE PHOSPHATASE (test 138 U/L code = 2204) AST (test code = 2218) 20 U/L ALT (test code = 2219) 15 U/L MICROALBUMIN/CREATININE, RANDOM AND [id number] 00:00:00 Test Item Value Reference Range Interpretation Comments CREATININE, URINE, CONC. (test 107.2 MG/DL code = 2072) ALBUMIN, URINE, RANDOM (test code 0.6 MG/DL = 54690) CALC ALBUMIN/CREAT, RND (test 6 MG/G code = 24877) MICROALBUMIN/CREATININE, RANDOM AND [id number] 00:00:00 Test Item Value Reference Range Interpretation Comments CREATININE, URINE, CONC. (test 107.2 MG/DL code = 2072) ALBUMIN, URINE, RANDOM (test code 0.6 MG/DL = 01737) CALC ALBUMIN/CREAT, RND (test 6 MG/G code = 89180) HEMOGLOBIN [id number] 00:00:00 Test Item Value Reference Range Interpretation Comments HEMOGLOBIN A1c (test code = 93265) 12.2 % HEMOGLOBIN [id number] 00:00:00 Test Item Value Reference Range Interpretation Comments HEMOGLOBIN A1c (test code = 90212) 12.2 % HEMOGLOBIN [id number] 00:00:00 Test Item Value Reference Range Interpretation Comments HEMOGLOBIN A1c (test code = 70221) 12.2 % LIPID [id number] 00:00:00 Test Item Value Reference Range Interpretation Comments CHOLESTEROL (test code = 2210) 149 MG/DL TRIGLYCERIDES (test code = 2232) 350 MG/DL HDL CHOLESTEROL (test code = 2220) 38 MG/DL CALC LDL CHOL (test code = 2237) 69 MG/DL RISK RATIO LDL/HDL (test code = 1.82 RATIO 2238) LIPID [id number] 00:00:00 Test Item Value Reference Range Interpretation Comments CHOLESTEROL (test code = 2210) 149 MG/DL TRIGLYCERIDES (test code = 2232) 350 MG/DL HDL CHOLESTEROL (test code = 2220) 38 MG/DL CALC LDL CHOL (test code = 2237) 69 MG/DL RISK RATIO LDL/HDL (test code = 1.82 RATIO 2238) COMPREHENSIVE METABOLIC [id number] 00:00:00 Test Item Value Reference Range Interpretation Comments GLUCOSE (test code = 2217) 301 MG/DL BUN (test code = 2208) 13 MG/DL CREATININE (test code = 2214) 0.60 MG/DL eGFR AMER. (test code 122 ML/MIN/1.73 = 28563) eGFR NON- AMER. (test 106 ML/MIN/1.73 code = 46756) CALC BUN/CREAT (test code = 22 RATIO 2235) SODIUM (test code = 2231) 140 MEQ/L POTASSIUM (test code = 2228) 4.3 MEQ/L CHLORIDE (test code = 2215) 101 MEQ/L CARBON DIOXIDE (test code = 23 MEQ/L 2205) CALCIUM (test code = 2209) 9.8 MG/DL PROTEIN, TOTAL (test code = 7.0 G/DL 2228) ALBUMIN (test code = 2201) 4.7 G/DL CALC GLOBULIN (test code = 2.3 G/DL 2240) CALC A/G RATIO (test code = 2.0 RATIO 2234) BILIRUBIN, TOTAL (test code = 0.2 MG/DL 2206) ALKALINE PHOSPHATASE (test 138 U/L code = 2204) AST (test code = 2218) 20 U/L ALT (test code = 2219) 15 U/L COMPREHENSIVE METABOLIC [id number] 00:00:00 Test Item Value Reference Range Interpretation Comments GLUCOSE (test code = 2217) 301 MG/DL BUN (test code = 2208) 13 MG/DL CREATININE (test code = 2214) 0.60 MG/DL eGFR AMER. (test code 122 ML/MIN/1.73 = 25276) eGFR NON- AMER. (test 106 ML/MIN/1.73 code = 30746) CALC BUN/CREAT (test code = 22 RATIO 2235) SODIUM (test code = 2231) 140 MEQ/L POTASSIUM (test code = 2228) 4.3 MEQ/L CHLORIDE (test code = 2215) 101 MEQ/L CARBON DIOXIDE (test code = 23 MEQ/L 2206) CALCIUM (test code = 2209) 9.8 MG/DL PROTEIN, TOTAL (test code = 7.0 G/DL 2228) ALBUMIN (test code = 2201) 4.7 G/DL CALC GLOBULIN (test code = 2.3 G/DL 2240) CALC A/G RATIO (test code = 2.0 RATIO 2234) BILIRUBIN, TOTAL (test code = 0.2 MG/DL 2206) ALKALINE PHOSPHATASE (test 138 U/L code = 2204) AST (test code = 2218) 20 U/L ALT (test code = 2219) 15 U/L MICROALBUMIN/CREATININE, RANDOM AND [id number] 00:00:00 Test Item Value Reference Range Interpretation Comments CREATININE, URINE, CONC. (test 107.2 MG/DL code = 2072) ALBUMIN, URINE, RANDOM (test code 0.6 MG/DL = 06255) CALC ALBUMIN/CREAT, RND (test 6 MG/G code = 82551) MICROALBUMIN/CREATININE, RANDOM AND [id number] 00:00:00 Test Item Value Reference Range Interpretation Comments CREATININE, URINE, CONC. (test 107.2 MG/DL code = 2072) ALBUMIN, URINE, RANDOM (test code 0.6 MG/DL = 73035) CALC ALBUMIN/CREAT, RND (test 6 MG/G code = 56688) HEMOGLOBIN [id number] 00:00:00 Test Item Value Reference Range Interpretation Comments HEMOGLOBIN A1c (test code = 53645) 12.2 % HEMOGLOBIN [id number] 00:00:00 Test Item Value Reference Range Interpretation Comments HEMOGLOBIN A1c (test code = 07553) 12.2 % LIPID [id number] 00:00:00 Test Item Value Reference Range Interpretation Comments CHOLESTEROL (test code = 2210) 149 MG/DL TRIGLYCERIDES (test code = 2232) 350 MG/DL HDL CHOLESTEROL (test code = 2220) 38 MG/DL CALC LDL CHOL (test code = 2237) 69 MG/DL RISK RATIO LDL/HDL (test code = 1.82 RATIO 2238) COMPREHENSIVE METABOLIC [id number] 00:00:00 Test Item Value Reference Range Interpretation Comments GLUCOSE (test code = 2217) 301 MG/DL BUN (test code = 2208) 13 MG/DL CREATININE (test code = 2214) 0.60 MG/DL eGFR AMER. (test code 122 ML/MIN/1.73 = 85840) eGFR NON- AMER. (test 106 ML/MIN/1.73 code = 73334) CALC BUN/CREAT (test code = 22 RATIO 2235) SODIUM (test code = 2231) 140 MEQ/L POTASSIUM (test code = 2228) 4.3 MEQ/L CHLORIDE (test code = 2215) 101 MEQ/L CARBON DIOXIDE (test code = 23 MEQ/L 2205) CALCIUM (test code = 2209) 9.8 MG/DL PROTEIN, TOTAL (test code = 7.0 G/DL 2228) ALBUMIN (test code = 2201) 4.7 G/DL CALC GLOBULIN (test code = 2.3 G/DL 2239) CALC A/G RATIO (test code = 2.0 RATIO 2233) BILIRUBIN, TOTAL (test code = 0.2 MG/DL 2206) ALKALINE PHOSPHATASE (test 138 U/L code = 2204) AST (test code = 2218) 20 U/L ALT (test code = 2219) 15 U/L MICROALBUMIN/CREATININE, RANDOM AND [id number] 00:00:00 Test Item Value Reference Range Interpretation Comments CREATININE, URINE, CONC. (test 107.2 MG/DL code = 207) ALBUMIN, URINE, RANDOM (test code 0.6 MG/DL = 81375) CALC ALBUMIN/CREAT, RND (test 6 MG/G code = 56398) SARS-CoV-2 (COVID-19) by RT-PCR (HIGH RISK)2020-02-15 00:00:00 Test Item Value Reference Range Interpretation Comments SARS-CoV-2 INTERPRETATION Negative (test code = 96020) SOURCE (test code = 93820) Nasal_Swab_in_VTM__ UTM SARS-CoV-2 (COVID-19) by RT-PCR (HIGH RISK)2020-02-15 00:00:00 Test Item Value Reference Range Interpretation Comments SARS-CoV-2 INTERPRETATION Negative (test code = 50416) SOURCE (test code = 34355) Nasal_Swab_in_VTM__ UTM SARS-CoV-2 (COVID-19) by RT-PCR (HIGH RISK)2020-02-15 00:00:00 Test Item Value Reference Range Interpretation Comments SARS-CoV-2 INTERPRETATION Negative (test code = 83001) SOURCE (test code = 30368) Nasal_Swab_in_VTM__ UTM SARS-CoV-2 (COVID-19) by RT-PCR (HIGH RISK)2019-10-26 00:00:00 Test Item Value Reference Range Interpretation Comments SARS-CoV-2 INTERPRETATION (test NEGATIVE code = 37803) SOURCE (test code = 22175) NOT SPECIFIED SARS-CoV-2 (COVID-19) by RT-PCR (HIGH RISK)2019-10-26 00:00:00 Test Item Value Reference Range Interpretation Comments SARS-CoV-2 INTERPRETATION (test NEGATIVE code = 46795) SOURCE (test code = 37728) NOT SPECIFIED SARS-CoV-2 (COVID-19) by RT-PCR (HIGH RISK)2019-10-26 00:00:00 Test Item Value Reference Range Interpretation Comments SARS-CoV-2 INTERPRETATION (test NEGATIVE code = 60864) SOURCE (test code = 14494) NOT SPECIFIED SARS-CoV-2 (COVID-19) by RT-PCR (HIGH RISK)2019-10-26 00:00:00 Test Item Value Reference Range Interpretation Comments SARS-CoV-2 INTERPRETATION (test NEGATIVE code = 36327) SOURCE (test code = 37608) NOT SPECIFIED SARS-CoV-2 (COVID-19) by RT-PCR (HIGH RISK)2019-10-26 00:00:00 Test Item Value Reference Range Interpretation Comments SARS-CoV-2 INTERPRETATION (test NEGATIVE code = 90792) SOURCE (test code = 65460) NOT SPECIFIED CULTURE, [id number] 00:00:00 Test Item Value Reference Range Interpretation Comments CULTURE, ROUTINE (test SPECIMEN NUMBER: code = 77232) [id number] CULTURE, [id number] 00:00:00 Test Item Value Reference Range Interpretation Comments CULTURE, ROUTINE (test SPECIMEN NUMBER: code = 98028) [id number] CULTURE, [id number] 00:00:00 Test Item Value Reference Range Interpretation Comments CULTURE, ROUTINE (test SPECIMEN NUMBER: code = 43032) [id number] CULTURE, [id number] 00:00:00 Test Item Value Reference Range Interpretation Comments CULTURE, ROUTINE (test SPECIMEN NUMBER: code = 17275) [id number] CULTURE, [id number] 00:00:00 Test Item Value Reference Range Interpretation Comments CULTURE, ROUTINE (test SPECIMEN NUMBER: code = 77990) [id number] CULTURE, [id number] 00:00:00 Test Item Value Reference Range Interpretation Comments CULTURE, ROUTINE (test SPECIMEN NUMBER: code = 54349) [id number] CULTURE, [id number] 00:00:00 Test Item Value Reference Range Interpretation Comments CULTURE, ROUTINE (test SPECIMEN NUMBER: code = 12571) [id number] CULTURE, [id number] 00:00:00 Test Item Value Reference Range Interpretation Comments CULTURE, ROUTINE (test SPECIMEN NUMBER: code = 08214) [id number] PAP TEST, THINPREP, [id number] 00:00:00 Test Item Value Reference Range Interpretation Comments SOURCE: (test code = Cervical/Endocervical 8001) SLIDES: (test code = 1 8011) LMP: (test code = 8021) SEE NOTE SPECIMEN ADEQUACY: (test (NOTE) code = 42250) INTERPRETATION: (test NILM/NO EPITH. code = 48941) ABNORMALITY;SEE BELOW OTHER COMMENTS: (test (NOTE) code = 8081) AGRICULTURE TECHNICIAN: (test Chasity code = 8101) MIKY Thomas(ASCP) LOCATION: (test code = (NOTE) 54215) CPT: (test code = 8140) (NOTE) PAP TEST, THINPREP, [id number] 00:00:00 Test Item Value Reference Range Interpretation Comments SOURCE: (test code = Cervical/Endocervical 8001) SLIDES: (test code = 1 8011) LMP: (test code = 8021) SEE NOTE SPECIMEN ADEQUACY: (test (NOTE) code = 30623) INTERPRETATION: (test NILM/NO EPITH. code = 17025) ABNORMALITY;SEE BELOW OTHER COMMENTS: (test (NOTE) code = 8081) AGRICULTURE TECHNICIAN: (test Chasity code = 8101) MIKY Thomas(ASCP) LOCATION: (test code = (NOTE) 77450) CPT: (test code = 8140) (NOTE) GLYCATED HEMOGLOBIN [REFLEX]2019-05-21 00:00:00 Test Item Value Reference Range Interpretation Comments GLYCATED HEMOGLOBIN (test code = 16.0 % 55930) AVERAGE BLOOD GLUCOSE (test code = 412 mg/dL 04432) PAP TEST, THINPREP, [id number] 00:00:00 Test Item Value Reference Range Interpretation Comments SOURCE: (test code = Cervical/Endocervical 8001) SLIDES: (test code = 1 8011) LMP: (test code = 8021) SEE NOTE SPECIMEN ADEQUACY: (test (NOTE) code = 81812) INTERPRETATION: (test NILM/NO EPITH. code = 04715) ABNORMALITY;SEE BELOW OTHER COMMENTS: (test (NOTE) code = 8081) AGRICULTURE TECHNICIAN: (test Chasity code = 8101) MIKY Thomas(ASCP) LOCATION: (test code = (NOTE) 98545) CPT: (test code = 8140) (NOTE) PAP TEST, THINPREP, [id number] 00:00:00 Test Item Value Reference Range Interpretation Comments SOURCE: (test code = Cervical/Endocervical 8001) SLIDES: (test code = 1 8011) LMP: (test code = 8021) SEE NOTE SPECIMEN ADEQUACY: (test (NOTE) code = 46864) INTERPRETATION: (test NILM/NO EPITH. code = 66228) ABNORMALITY;SEE BELOW OTHER COMMENTS: (test (NOTE) code = 8081) AGRICULTURE TECHNICIAN: (test Chasity code = 8101) MIKY Thomas(ASCP) LOCATION: (test code = (NOTE) 50795) CPT: (test code = 8140) (NOTE) GLYCATED HEMOGLOBIN [REFLEX]2019-05-21 00:00:00 Test Item Value Reference Range Interpretation Comments GLYCATED HEMOGLOBIN (test code = 16.0 % 52334) AVERAGE BLOOD GLUCOSE (test code = 412 mg/dL 83683) PAP TEST, THINPREP, [id number] 00:00:00 Test Item Value Reference Range Interpretation Comments SOURCE: (test code = Cervical/Endocervical 8001) SLIDES: (test code = 1 8011) LMP: (test code = 8021) SEE NOTE SPECIMEN ADEQUACY: (test (NOTE) code = 71009) INTERPRETATION: (test NILM/NO EPITH. code = 31810) ABNORMALITY;SEE BELOW OTHER COMMENTS: (test (NOTE) code = 8081) AGRICULTURE TECHNICIAN: (test Chasity code = 8101) MIKY Thomas(ASCP) LOCATION: (test code = (NOTE) 15611) CPT: (test code = 8140) (NOTE) GLYCATED HEMOGLOBIN [REFLEX]2019-05-21 00:00:00 Test Item Value Reference Range Interpretation Comments GLYCATED HEMOGLOBIN (test code = 16.0 % 46032) AVERAGE BLOOD GLUCOSE (test code = 412 mg/dL 23192) GC AND CHLAMYDIA AMPLIFIED, [id number] 00:00:00 Test Item Value Reference Range Interpretation Comments GONORRHEA, TMA (test code = 75673) NEGATIVE CHLAMYDIA, TMA (test code = 41046) NEGATIVE GC AND CHLAMYDIA AMPLIFIED, [id number] 00:00:00 Test Item Value Reference Range Interpretation Comments GONORRHEA, TMA (test code = 60036) NEGATIVE CHLAMYDIA, TMA (test code = 55545) NEGATIVE HPV HIGH RISK WITH GENOTYPE, [id number] 00:00:00 Test Item Value Reference Range Interpretation Comments HPV HIGH RISK INTERP (test code = NEGATIVE 84910) HPV 16 (test code = 51175) NEGATIVE HPV 18 (test code = 15376) NEGATIVE HPV, HR, OTHER GENOTYPES (test code NEGATIVE = 30176) HPV HIGH RISK WITH GENOTYPE, [id number] 00:00:00 Test Item Value Reference Range Interpretation Comments HPV HIGH RISK INTERP (test code = NEGATIVE 69182) HPV 16 (test code = 18765) NEGATIVE HPV 18 (test code = 93232) NEGATIVE HPV, HR, OTHER GENOTYPES (test code NEGATIVE = 69656) GC AND CHLAMYDIA AMPLIFIED, [id number] 00:00:00 Test Item Value Reference Range Interpretation Comments GONORRHEA, TMA (test code = 87374) NEGATIVE CHLAMYDIA, TMA (test code = 25102) NEGATIVE GC AND CHLAMYDIA AMPLIFIED, [id number] 00:00:00 Test Item Value Reference Range Interpretation Comments GONORRHEA, TMA (test code = 85765) NEGATIVE CHLAMYDIA, TMA (test code = 12001) NEGATIVE HPV HIGH RISK WITH GENOTYPE, [id number] 00:00:00 Test Item Value Reference Range Interpretation Comments HPV HIGH RISK INTERP (test code = NEGATIVE 73549) HPV 16 (test code = 41207) NEGATIVE HPV 18 (test code = 62550) NEGATIVE HPV, HR, OTHER GENOTYPES (test code NEGATIVE = 01019) HPV HIGH RISK WITH GENOTYPE, [id number] 00:00:00 Test Item Value Reference Range Interpretation Comments HPV HIGH RISK INTERP (test code = NEGATIVE 47098) HPV 16 (test code = 37907) NEGATIVE HPV 18 (test code = 16765) NEGATIVE HPV, HR, OTHER GENOTYPES (test code NEGATIVE = 70120) GC AND CHLAMYDIA AMPLIFIED, [id number] 00:00:00 Test Item Value Reference Range Interpretation Comments GONORRHEA, TMA (test code = 32522) NEGATIVE CHLAMYDIA, TMA (test code = 64615) NEGATIVE HPV HIGH RISK WITH GENOTYPE, [id number] 00:00:00 Test Item Value Reference Range Interpretation Comments HPV HIGH RISK INTERP (test code = NEGATIVE 57847) HPV 16 (test code = 04487) NEGATIVE HPV 18 (test code = 72866) NEGATIVE HPV, HR, OTHER GENOTYPES (test code NEGATIVE = 51491) HEMOGLOBIN [id number] 00:00:00 Test Item Value Reference Range Interpretation Comments HEMOGLOBIN A1c (test TEST NOT PERFORMED % code = 78978) HEMOGLOBIN [id number] 00:00:00 Test Item Value Reference Range Interpretation Comments HEMOGLOBIN A1c (test TEST NOT PERFORMED % code = 68606) HEMOGLOBIN [id number] 00:00:00 Test Item Value Reference Range Interpretation Comments HEMOGLOBIN A1c (test TEST NOT PERFORMED % code = 36282) HEMOGLOBIN [id number] 00:00:00 Test Item Value Reference Range Interpretation Comments HEMOGLOBIN A1c (test TEST NOT PERFORMED % code = 45448) HEMOGLOBIN [id number] 00:00:00 Test Item Value Reference Range Interpretation Comments HEMOGLOBIN A1c (test TEST NOT PERFORMED % code = 24991) HEMOGLOBIN [id number] 00:00:00 Test Item Value Reference Range Interpretation Comments HEMOGLOBIN A1c (test TEST NOT PERFORMED % code = 79701) HEMOGLOBIN [id number] 00:00:00 Test Item Value Reference Range Interpretation Comments HEMOGLOBIN A1c (test TEST NOT PERFORMED % code = 75630) HEMOGLOBIN [id number] 00:00:00 Test Item Value Reference Range Interpretation Comments HEMOGLOBIN A1c (test TEST NOT PERFORMED % code = 50771) VAGINAL PATHOGENS DNA [id number] 00:00:00 Test Item Value Reference Range Interpretation Comments ANDREINA SPECIES (test code = 26042) NEGATIVE G. VAGINALIS (test code = 53469) POSITIVE T. VAGINALIS (test code = 57876) NEGATIVE VAGINAL PATHOGENS DNA [id number] 00:00:00 Test Item Value Reference Range Interpretation Comments ANDREINA SPECIES (test code = 36618) NEGATIVE G. VAGINALIS (test code = 58598) POSITIVE T. VAGINALIS (test code = 17427) NEGATIVE COMPREHENSIVE METABOLIC [id number] 00:00:00 Test Item Value Reference Range Interpretation Comments GLUCOSE (test code = 2217) 633 MG/DL BUN (test code = 2208) 6 MG/DL CREATININE (test code = 2214) 0.87 MG/DL eGFR AMER. (test code 90 ML/MIN/1.73 = 24969) eGFR NON- AMER. (test 78 ML/MIN/1.73 code = 50508) CALC BUN/CREAT (test code = 7 RATIO 2235) SODIUM (test code = 2231) 133 MEQ/L POTASSIUM (test code = 2228) 4.5 MEQ/L CHLORIDE (test code = 2215) 95 MEQ/L CARBON DIOXIDE (test code = 21 MEQ/L 220) CALCIUM (test code = 2209) 9.2 MG/DL PROTEIN, TOTAL (test code = 6.3 G/DL 2228) ALBUMIN (test code = 2201) 4.3 G/DL CALC GLOBULIN (test code = 2.0 G/DL 2240) CALC A/G RATIO (test code = 2.2 RATIO 2234) BILIRUBIN, TOTAL (test code = <0.2 MG/DL 2206) ALKALINE PHOSPHATASE (test 140 U/L code = 2204) AST (test code = 2218) 23 U/L ALT (test code = 2219) 10 U/L COMPREHENSIVE METABOLIC [id number] 00:00:00 Test Item Value Reference Range Interpretation Comments GLUCOSE (test code = 2217) 633 MG/DL BUN (test code = 2208) 6 MG/DL CREATININE (test code = 2214) 0.87 MG/DL eGFR AMER. (test code 90 ML/MIN/1.73 = 30336) eGFR NON- AMER. (test 78 ML/MIN/1.73 code = 49301) CALC BUN/CREAT (test code = 7 RATIO 2235) SODIUM (test code = 2231) 133 MEQ/L POTASSIUM (test code = 2228) 4.5 MEQ/L CHLORIDE (test code = 2215) 95 MEQ/L CARBON DIOXIDE (test code = 21 MEQ/L 2206) CALCIUM (test code = 2209) 9.2 MG/DL PROTEIN, TOTAL (test code = 6.3 G/DL 2228) ALBUMIN (test code = 2201) 4.3 G/DL CALC GLOBULIN (test code = 2.0 G/DL 2240) CALC A/G RATIO (test code = 2.2 RATIO 2234) BILIRUBIN, TOTAL (test code = <0.2 MG/DL 2207) ALKALINE PHOSPHATASE (test 140 U/L code = 2204) AST (test code = 2218) 23 U/L ALT (test code = 2219) 10 U/L LIPID [id number] 00:00:00 Test Item Value Reference Range Interpretation Comments CHOLESTEROL (test code = 2210) 204 MG/DL TRIGLYCERIDES (test code = 2232) 509 MG/DL HDL CHOLESTEROL (test code = 40 MG/DL 2220) CALC LDL CHOL (test code = 2237) NOTE MG/DL RISK RATIO LDL/HDL (test code = (NOTE) RATIO 2238) LIPID [id number] 00:00:00 Test Item Value Reference Range Interpretation Comments CHOLESTEROL (test code = 2210) 204 MG/DL TRIGLYCERIDES (test code = 2232) 509 MG/DL HDL CHOLESTEROL (test code = 40 MG/DL 2220) CALC LDL CHOL (test code = 2237) NOTE MG/DL RISK RATIO LDL/HDL (test code = (NOTE) RATIO 2238) HIV AB/AG COMBO RFLX [id number] 00:00:00 Test Item Value Reference Range Interpretation Comments HIV 1/2 4TH GEN, RFLX CONF (test NON-REACTIVE code = 3514) HIV AB/AG COMBO RFLX [id number] 00:00:00 Test Item Value Reference Range Interpretation Comments HIV 1/2 4TH GEN, RFLX CONF (test NON-REACTIVE code = 3514) ACUTE HEPATITIS [id number] 00:00:00 Test Item Value Reference Range Interpretation Comments HEPATITIS A IgM (test code = NON-REACTIVE 41205) HEPATITIS B CORE IgM (test code NON-REACTIVE = 4644) HEPATITIS B SURF AG (test code = NON-REACTIVE 2739) HEPATITIS C ANTIBODY (test code NON-REACTIVE = 4675) INTERPRETATION HEPATITIS A: (NOTE) (test code = 2552) INTERPRETATION HEPATITIS B: (NOTE) (test code = 14258) INTERPRETATION HEPATITIS C: (NOTE) (test code = 45157) ACUTE HEPATITIS [id number] 00:00:00 Test Item Value Reference Range Interpretation Comments HEPATITIS A IgM (test code = NON-REACTIVE 24417) HEPATITIS B CORE IgM (test code NON-REACTIVE = 4644) HEPATITIS B SURF AG (test code = NON-REACTIVE 2589) HEPATITIS C ANTIBODY (test code NON-REACTIVE = 4603) INTERPRETATION HEPATITIS A: (NOTE) (test code = 2552) INTERPRETATION HEPATITIS B: (NOTE) (test code = 09404) INTERPRETATION HEPATITIS C: (NOTE) (test code = 82889) [id number] 00:00:00 Test Item Value Reference Range Interpretation Comments RPR RESULT (test code = NON-REACTIVE 3501) RPR TITER (test code = 3500) NOT INDIC. TITER [id number] 00:00:00 Test Item Value Reference Range Interpretation Comments RPR RESULT (test code = NON-REACTIVE 3501) RPR TITER (test code = 3500) NOT INDIC. TITER [id number] 00:00:00 Test Item Value Reference Range Interpretation Comments RPR RESULT (test code = NON-REACTIVE 3501) RPR TITER (test code = 3500) NOT INDIC. TITER VAGINAL PATHOGENS DNA [id number] 00:00:00 Test Item Value Reference Range Interpretation Comments ANDREINA SPECIES (test code = 13743) NEGATIVE G. VAGINALIS (test code = 65037) POSITIVE T. VAGINALIS (test code = 50551) NEGATIVE VAGINAL PATHOGENS DNA [id number] 00:00:00 Test Item Value Reference Range Interpretation Comments ANDREINA SPECIES (test code = 19332) NEGATIVE G. VAGINALIS (test code = 37162) POSITIVE T. VAGINALIS (test code = 81996) NEGATIVE COMPREHENSIVE METABOLIC [id number] 00:00:00 Test Item Value Reference Range Interpretation Comments GLUCOSE (test code = 2217) 633 MG/DL BUN (test code = 2208) 6 MG/DL CREATININE (test code = 2214) 0.87 MG/DL eGFR AMER. (test code 90 ML/MIN/1.73 = 12840) eGFR NON- AMER. (test 78 ML/MIN/1.73 code = 13003) CALC BUN/CREAT (test code = 7 RATIO 2235) SODIUM (test code = 2231) 133 MEQ/L POTASSIUM (test code = 2228) 4.5 MEQ/L CHLORIDE (test code = 2215) 95 MEQ/L CARBON DIOXIDE (test code = 21 MEQ/L 2206) CALCIUM (test code = 2209) 9.2 MG/DL PROTEIN, TOTAL (test code = 6.3 G/DL 2229) ALBUMIN (test code = 2201) 4.3 G/DL CALC GLOBULIN (test code = 2.0 G/DL 2240) CALC A/G RATIO (test code = 2.2 RATIO 2234) BILIRUBIN, TOTAL (test code = <0.2 MG/DL 2207) ALKALINE PHOSPHATASE (test 140 U/L code = 2204) AST (test code = 2218) 23 U/L ALT (test code = 2219) 10 U/L COMPREHENSIVE METABOLIC [id number] 00:00:00 Test Item Value Reference Range Interpretation Comments GLUCOSE (test code = 2217) 633 MG/DL BUN (test code = 2208) 6 MG/DL CREATININE (test code = 2214) 0.87 MG/DL eGFR AMER. (test code 90 ML/MIN/1.73 = 98146) eGFR NON- AMER. (test 78 ML/MIN/1.73 code = 36913) CALC BUN/CREAT (test code = 7 RATIO 2235) SODIUM (test code = 2231) 133 MEQ/L POTASSIUM (test code = 2228) 4.5 MEQ/L CHLORIDE (test code = 2215) 95 MEQ/L CARBON DIOXIDE (test code = 21 MEQ/L 2206) CALCIUM (test code = 2209) 9.2 MG/DL PROTEIN, TOTAL (test code = 6.3 G/DL 2229) ALBUMIN (test code = 2201) 4.3 G/DL CALC GLOBULIN (test code = 2.0 G/DL 2240) CALC A/G RATIO (test code = 2.2 RATIO 2234) BILIRUBIN, TOTAL (test code = <0.2 MG/DL 2207) ALKALINE PHOSPHATASE (test 140 U/L code = 2204) AST (test code = 2218) 23 U/L ALT (test code = 2219) 10 U/L LIPID [id number] 00:00:00 Test Item Value Reference Range Interpretation Comments CHOLESTEROL (test code = 2210) 204 MG/DL TRIGLYCERIDES (test code = 2232) 509 MG/DL HDL CHOLESTEROL (test code = 40 MG/DL 2220) CALC LDL CHOL (test code = 2237) NOTE MG/DL RISK RATIO LDL/HDL (test code = (NOTE) RATIO 2238) LIPID [id number] 00:00:00 Test Item Value Reference Range Interpretation Comments CHOLESTEROL (test code = 2210) 204 MG/DL TRIGLYCERIDES (test code = 2232) 509 MG/DL HDL CHOLESTEROL (test code = 40 MG/DL 2220) CALC LDL CHOL (test code = 2237) NOTE MG/DL RISK RATIO LDL/HDL (test code = (NOTE) RATIO 2238) HIV AB/AG COMBO RFLX [id number] 00:00:00 Test Item Value Reference Range Interpretation Comments HIV 1/2 4TH GEN, RFLX CONF (test NON-REACTIVE code = 3514) HIV AB/AG COMBO RFLX [id number] 00:00:00 Test Item Value Reference Range Interpretation Comments HIV 1/2 4TH GEN, RFLX CONF (test NON-REACTIVE code = 3514) ACUTE HEPATITIS [id number] 00:00:00 Test Item Value Reference Range Interpretation Comments HEPATITIS A IgM (test code = NON-REACTIVE 23721) HEPATITIS B CORE IgM (test code NON-REACTIVE = 4644) HEPATITIS B SURF AG (test code = NON-REACTIVE 2739) HEPATITIS C ANTIBODY (test code NON-REACTIVE = 4675) INTERPRETATION HEPATITIS A: (NOTE) (test code = 2552) INTERPRETATION HEPATITIS B: (NOTE) (test code = 99272) INTERPRETATION HEPATITIS C: (NOTE) (test code = 90145) ACUTE HEPATITIS [id number] 00:00:00 Test Item Value Reference Range Interpretation Comments HEPATITIS A IgM (test code = NON-REACTIVE 64059) HEPATITIS B CORE IgM (test code NON-REACTIVE = 4644) HEPATITIS B SURF AG (test code = NON-REACTIVE 2739) HEPATITIS C ANTIBODY (test code NON-REACTIVE = 4675) INTERPRETATION HEPATITIS A: (NOTE) (test code = 2552) INTERPRETATION HEPATITIS B: (NOTE) (test code = 55490) INTERPRETATION HEPATITIS C: (NOTE) (test code = 74350) [id number] 00:00:00 Test Item Value Reference Range Interpretation Comments RPR RESULT (test code = NON-REACTIVE 3501) RPR TITER (test code = 3500) NOT INDIC. TITER [id number] 00:00:00 Test Item Value Reference Range Interpretation Comments RPR RESULT (test code = NON-REACTIVE 3501) RPR TITER (test code = 3500) NOT INDIC. TITER [id number] 00:00:00 Test Item Value Reference Range Interpretation Comments RPR RESULT (test code = NON-REACTIVE 3501) RPR TITER (test code = 3500) NOT INDIC. TITER VAGINAL PATHOGENS DNA [id number] 00:00:00 Test Item Value Reference Range Interpretation Comments ANDREINA SPECIES (test code = ) NEGATIVE G. VAGINALIS (test code = ) POSITIVE T. VAGINALIS (test code = ) NEGATIVE COMPREHENSIVE METABOLIC [id number] 00:00:00 Test Item Value Reference Range Interpretation Comments GLUCOSE (test code = 2217) 633 MG/DL BUN (test code = 2208) 6 MG/DL CREATININE (test code = 2214) 0.87 MG/DL eGFR AMER. (test code 90 ML/MIN/1.73 = 50908) eGFR NON- AMER. (test 78 ML/MIN/1.73 code = 92301) CALC BUN/CREAT (test code = 7 RATIO 2235) SODIUM (test code = 2231) 133 MEQ/L POTASSIUM (test code = 2228) 4.5 MEQ/L CHLORIDE (test code = 2215) 95 MEQ/L CARBON DIOXIDE (test code = 21 MEQ/L 220) CALCIUM (test code = 2209) 9.2 MG/DL PROTEIN, TOTAL (test code = 6.3 G/DL 2228) ALBUMIN (test code = 2201) 4.3 G/DL CALC GLOBULIN (test code = 2.0 G/DL 2240) CALC A/G RATIO (test code = 2.2 RATIO 2234) BILIRUBIN, TOTAL (test code = <0.2 MG/DL 2206) ALKALINE PHOSPHATASE (test 140 U/L code = 2204) AST (test code = 2218) 23 U/L ALT (test code = 2219) 10 U/L LIPID [id number] 00:00:00 Test Item Value Reference Range Interpretation Comments CHOLESTEROL (test code = 2210) 204 MG/DL TRIGLYCERIDES (test code = 2232) 509 MG/DL HDL CHOLESTEROL (test code = 40 MG/DL 2220) CALC LDL CHOL (test code = 2237) NOTE MG/DL RISK RATIO LDL/HDL (test code = (NOTE) RATIO 2238) HIV AB/AG COMBO RFLX [id number] 00:00:00 Test Item Value Reference Range Interpretation Comments HIV 1/2 4TH GEN, RFLX CONF (test NON-REACTIVE code = 3514) ACUTE HEPATITIS [id number] 00:00:00 Test Item Value Reference Range Interpretation Comments HEPATITIS A IgM (test code = NON-REACTIVE 77385) HEPATITIS B CORE IgM (test code NON-REACTIVE = 4644) HEPATITIS B SURF AG (test code = NON-REACTIVE 9389) HEPATITIS C ANTIBODY (test code NON-REACTIVE = 4607) INTERPRETATION HEPATITIS A: (NOTE) (test code = 2552) INTERPRETATION HEPATITIS B: (NOTE) (test code = 86852) INTERPRETATION HEPATITIS C: (NOTE) (test code = 76983) [id number] 00:00:00 Test Item Value Reference Range Interpretation Comments RPR RESULT (test code = NON-REACTIVE 3501) RPR TITER (test code = 3500) NOT INDIC. TITER [id number] 00:00:00 Test Item Value Reference Range Interpretation Comments RPR RESULT (test code = NON-REACTIVE 3501) RPR TITER (test code = 3500) NOT INDIC. TITER"
[2022-10-04] MEDS ORDERED: HYDROCODONE/APAP 5/325 MG TAB ONE (14:50)
[2022-10-04] MEDS ORDERED: ACETAMINOPHEN 500 MG TAB ONE (14:55)
--- NOTE | 2022-10-04 16:03 | RAD REPORT ---
EXAM DESCRIPTION: RADSacrum And Coccyx10/04/2022 3:30 pm CLINICAL HISTORY: Back pain status post fall FINDINGS: No fracture is seen
--- NOTE | 2022-10-04 16:10 | EDPHYS ---
Physician Documentation [facility] Name: Ángela Mehta Age: 52 yrs Sex: Female : 1970 Arrival Date: 10/04/2022 Time: 14:26 Bed 13 Private MD: ED Physician Saud De La Fuente HPI: 10/04 14:39 This 52 yrs old Female presents to ER via Ambulatory with complaints of sb4 TAILBONE PAIN. 14:39 Onset: The symptoms/episode began/occurred 4 day(s) ago. 52 year old female with sb4 diabetes fell off a ladder, either 1 or 2 steps, 4 days ago onto her bottom. States she has significant pain, she can't get comfortable. No other associated signs and symptoms. No numbness/tingling in legs, loss of bowel/bladder function. Historical: - Allergies: 14:33 No Known Allergies; nj1 - PMHx: 14:33 Diabetes mellitus; nj1 - PSHx: 14:33 None; nj1 - Immunization history:: Client reports receiving the 2nd dose of the Covid vaccine. - Social history:: Smoking status: Patient reports the use of cigarette tobacco products, smokes one-half pack cigarettes per day, Reported history of juuling and/or vaping. ROS: 14:39 Constitutional: Negative for fever, chills, and weight loss. sb4 14:39 Neuro: Negative for headache, weakness, numbness, tingling, and seizure. 14:39 MS/extremity: Positive for injury or acute deformity, pain, sacral/coccyx pain. 14:39 All other systems are negative. Exam: 14:39 Constitutional: This is a well developed, well nourished patient who is awake, alert, sb4 and in no acute distress. Head/Face: Normocephalic, atraumatic. Eyes: Extra-ocular motions intact. Periorbital areas with no swelling, redness, or edema. Skin: Warm, dry with normal turgor. Normal color with no rashes, no lesions, and no evidence of cellulitis. Neuro: Awake and alert, GCS 15, oriented to person, place, time, and situation. Cranial nerves II-XII grossly intact. Motor strength 5/5 in all extremities. Sensory grossly intact. Cerebellar exam normal. Normal gait. 14:39 Back: pain, that is moderate, ROM is painful, with flexion, normal spinal alignment noted, CVA tenderness, is absent, vertebral tenderness, is appreciated at sacrum and coccyx. Vital Signs: 14:31 BP 125 / 88; Pulse 78; Resp 18; Temp 98.2; Pulse Ox 100% ; Weight 72.57 kg; Height 5 nj1 ft. 4 in. ; Pain 6/10; 15:55 BP 104 / 60; Pulse 75; Resp 17 S; Pulse Ox 99% on R/A; kc6 14:31 Body Mass Index 27.46 (72.57 kg, 162.56 cm) nj1 14:31 Pain Scale: Adult nj1 MDM: 14:33 Patient medically screened. sb4 14:39 Differential diagnosis: sacral fracture, coccyx fracture, contusion. sb4 16:07 Data reviewed: vital signs, nurses notes, radiologic studies, plain films, and as a sb4 result, I will discharge patient. Independent interpretation of the following test(s) in the Emergency Department X-Ray: My interpretation is my interpretation of the sacrum and coccxy xray images are negative for acute fracture. Care significantly affected by the following chronic conditions: Diabetes. Counseling: I had a detailed discussion with the patient and/or guardian regarding: the historical points, exam findings, and any diagnostic results supporting the discharge/admit diagnosis, radiology results. 10/04 14:38 Order name: Sacrum And Coccyx XRAY; Complete Time: 16:07 sb4 Administered Medications: 14:45 Not Given (Patient Refused): HYDROcodone-acetaminophen PO 5 mg-325 mg 1 tabs PO once sb4 14:50 Drug: Acetaminophen PO 1000 mg Route: PO; kc 15:54 Follow up: Response: No adverse reaction kc6 Disposition Summary: 10/04/22 16:10 Discharge Ordered Location: Home sb4 Problem: new sb4 Symptoms: have improved sb4 Condition: Stable sb4 Diagnosis - Fall (on) (from) other stairs and steps sb4 - Coccyx Contusion sb4 Followup: sb4 - With: Pio Masterson MD - When: - Reason: Further diagnostic work-up, Recheck today's complaints, Re-evaluation by your physician Discharge Instructions: - Discharge Summary Sheet sb4 - Tailbone Injury, [id number] sb4 Forms: - Medication Reconciliation Form sb4 - Thank You Letter sb4 - Antibiotic Education sb4 - Prescription Opioid Use sb4 - [email or web address]_[email or web address] sb4 Prescriptions: - meloxicam 7.5 mg Oral tablet - take 1 tablet by ORAL route daily; 15 tablet; Refills: 0, Product Selection sb4 Permitted Signatures: Dispatcher [employer] Komal Fuchs RN RN kc6 Bette Handy PA-C PABrynn sb4 Danielle Oro RN RN nj1 Corrections: (The following items were deleted from the chart) 14:34 14:33 PMHx: Diabetes - NIDDM; nj1 nj1
--- NOTE | 2022-10-04 16:10 | ER ---
Nurse's Notes [facility] Name: Ángela Mehta Age: 52 yrs Sex: Female : 1970 Arrival Date: 10/04/2022 Time: 14:26 Bed 13 Private MD: Diagnosis: Fall (on) (from) other stairs and steps;Coccyx Contusion Presentation: 10/04 14:31 Chief complaint: Patient states: Fell on her buttocks on Thursday, hurting ever since. [facility] Coronavirus screen: Vaccine status: Patient reports receiving the 2nd dose of the covid vaccine. Ebola Screen: Patient denies travel to an Ebola-affected area in the 21 days before illness onset. Initial Sepsis Screen: Does the patient meet any 2 criteria? No. Patient's initial sepsis screen is negative. Does the patient have a suspected source of infection? No. Patient's initial sepsis screen is negative. Risk Assessment: Do you want to hurt yourself or someone else? Patient reports no desire to harm self or others. Onset of symptoms was September 30, 2022. 14:31 Method Of Arrival: Ambulatory [facility] 14:31 Acuity: NIMA 3 nj1 Historical: - Allergies: 14:33 No Known Allergies; nj1 - PMHx: 14:33 Diabetes mellitus; nj1 - PSHx: 14:33 None; nj1 - Immunization history:: Client reports receiving the 2nd dose of the Covid vaccine. - Social history:: Smoking status: Patient reports the use of cigarette tobacco products, smokes one-half pack cigarettes per day, Reported history of juuling and/or vaping. Screenin:45 [facility] ED Fall Risk Assessment (Adult) History of falling in the last 3 months, kc6 including since admission Yes- single mechanical fall (1 pt) Confusion or Disorientation No (0 pts) Intoxicated or Sedated No (0 pts) Impaired Gait No (0 pts) Mobility Assist Device Used No (0 pt) Altered Elimination No (0 pt) Score/Fall Risk Level 0 - 2 = Low Risk Oriented to surroundings, Maintained a safe environment, Educated pt \T\ family on fall prevention, incl call for assistance when getting out of bed, Assessed \T\ reinforced patient's understanding of fall precautions, Hourly rounding (assess needs \T\ fall precautionary measures) done. Abuse screen: Denies threats or abuse. Denies injuries from another. Nutritional screening: No deficits noted. Tuberculosis screening: No symptoms or risk factors identified. Assessment: 14:45 General: Appears in no apparent distress. uncomfortable, Behavior is calm, cooperative, kc6 appropriate for age. Pain: Complains of pain in coccyx and sacrum. Neuro: Level of Consciousness is awake, alert, obeys commands, Oriented to person, place, time, situation, Appropriate for age. Cardiovascular: Capillary refill < 3 seconds. Respiratory: Airway is patent Trachea midline Respiratory effort is even, unlabored, Respiratory pattern is regular, symmetrical. GI: No signs and/or symptoms were reported involving the gastrointestinal system. : No signs and/or symptoms were reported regarding the genitourinary system. EENT: No signs and/or symptoms were reported regarding the EENT system. Derm: No signs and/or symptoms reported regarding the dermatologic system. Skin is intact, Skin is pink, warm \T\ dry. Musculoskeletal: No signs and/or symptoms reported regarding the musculoskeletal system. Circulation, motion, and sensation intact. Capillary refill < 3 seconds, Range of motion: intact in all extremities. 15:45 Reassessment: Patient appears in no apparent distress at this time. No changes from kc6 previously documented assessment. Patient and/or family updated on plan of care and expected duration. Pain level reassessed. Patient is alert, oriented x 3, equal unlabored respirations, skin warm/dry/pink. Vital Signs: 14:31 BP 125 / 88; Pulse 78; Resp 18; Temp 98.2; Pulse Ox 100% ; Weight 72.57 kg; Height 5 nj1 ft. 4 in. ; Pain 6/10; 15:55 BP 104 / 60; Pulse 75; Resp 17 S; Pulse Ox 99% on R/A; kc6 14:31 Body Mass Index 27.46 (72.57 kg, 162.56 cm) nj1 14:31 Pain Scale: Adult [facility] ED Course: 14:28 Patient arrived in ED. ts1 14:33 Bette Handy PA-C is PHCP. sb4 14:33 Saud De La Fuente MD is Attending Physician. sb4 14:33 Triage completed. nj1 14:34 Arm band placed on right wrist. nj1 14:36 Handley, Komal, RN is Primary Nurse. kc6 14:45 Patient has correct armband on for positive identification. Bed in low position. Call kc6 light in reach. Side rails up X 1. 15:32 Sacrum And Coccyx XRAY In Process Unspecified. EDMS 16:08 Pio Masterson MD is Referral Physician. sb4 16:18 No provider procedures requiring assistance completed. Patient did not have IV access kc6 during this emergency room visit. Administered Medications: 14:45 Not Given (Patient Refused): HYDROcodone-acetaminophen PO 5 mg-325 mg 1 tabs PO once sb4 14:50 Drug: Acetaminophen PO 1000 mg Route: PO; kc6 15:54 Follow up: Response: No adverse reaction kc6 Medication: 16:18 VIS not applicable for this client. kc6 Outcome: 16:10 Discharge ordered by . sb4 16:18 Discharged to home ambulatory. kc6 16:18 Condition: stable 16:18 Discharge instructions given to patient, Instructed on discharge instructions, follow up and referral plans. medication usage, Demonstrated understanding of instructions, follow-up care, medications, Prescriptions given X 1. 16:18 Patient left the ED. kc6 Signatures: Dispatcher [employer] EDSC Komal Handley, RN RN kc6 Bette Handy, PA-C PA-C sb4 Danielle Oro RN RN nj1 Margret Noel, JAMEE PAS ts1 Corrections: (The following items were deleted from the chart) 14:34 14:33 PMHx: Diabetes - NIDDM; nj1 nj1
[2022-10-04 17:04] VITALS: TEMP 98.2
[2022-10-04 17:06] VITALS: BP 104/60; O2SAT 99
== END 2022-10-04 16:18 | disposition home or self-care (01) ==
LOC: ER 14:26
DX: S30.0XXA Contusion of lower back and pelvis, initial encounter (principal); W11.XXXA Fall on and from ladder, initial encounter; Y93.9 Activity, unspecified; Y92.9 Unspecified place or not applicable
CPT/HCPCS: 72220; 99283